=== PATIENT | female | born 1950 | race African-American/Black ===

== ENCOUNTER 2018-12-30 08:49 | Inpatient (IN) | payer MEDICARE ==
[~2018-12-30] VITALS: Ht 167.6 cm; Wt 115.7 kg
--- NOTE | 2018-12-30 08:53 | NUR ---
PT [id number], FROM HOME, C/O WEAKNESS x 5 DAYS, PT IS AAOX3, NOT IN RESPIRATORY DISTRESS, NOTED ELEVATED HEART RATE, HOOKED TO MONITOR, KEPT RESTED AND COMFORTABLE, WILL CONTINUE TO MONITOR.
[2018-12-30] MEDS ORDERED: IV NS 0.9% 500 ML BAG IV ONE (09:00)
--- NOTE | 2018-12-30 09:00 | NUR ---
SEEN AND EXAMINED BY DR. LORENZANA.
--- NOTE | 2018-12-30 09:05 | NUR ---
IV LINE ESTABLISHED, BLOOD DRAWNED AND SENT TO LAB.
[2018-12-30 09:14] LABS: BASOPHILS # (AUTO) 0.1 /CMM (0.0-0.2); BASOPHILS % (AUTO) 0.6 % (0.0-2.0); EOSINOPHILS % (AUTO) 0.1 % (0.0-6.0); HEMATOCRIT 35 % (33-45); HEMOGLOBIN 11.6 g/dL (11.5-14.8); LYMPHOCYTES # (AUTO) 1.2 /CMM (0.8-4.8); LYMPHOCYTES % (AUTO) 7.1 % (20.0-44.0); MEAN CORPUSCULAR HGB CONC 33 g/dl (31.0-36.0); MEAN CORPUSCULAR VOLUME 88 fL (82-100); MONOCYTES # (AUTO) 1.6 /CMM (0.1-1.30); MONOCYTES % (AUTO) 9.4 % (2.0-12.0); NEUTROPHILS # (AUTO) 13.8 /CMM (1.8-8.9); NEUTROPHILS % (AUTO) 82.8 % (43.0-81.0); PLATELET COUNT (AUTO) 294 /CMM (150-450); RED BLOOD CELL COUNT(AUTO) 3.97 MIL/uL (4.0-5.2); WHITE BLOOD COUNT (AUTO) 16.7 K/uL (4.3-11.0)
--- NOTE | 2018-12-30 09:20 | NUR ---
URINE COLLECTED VIA STRAIGHT CATH, URINE OUTPUT 500ML. URINE SPECIMEN SENT TO LAB.
--- NOTE | 2018-12-30 09:25 | NUR ---
informed Dr. Dial regarding patient allergic to PCN and iodine that she ordered Merem and per ok to give. Rambo (pharmacist) made aware about MD order.
[2018-12-30] MEDS ORDERED: IV NS 0.9% 1,000 ML BAG IV ONE (09:30)
[2018-12-30] MEDS ORDERED: MEROPENEM 500 MG in IV NS 0.9% 50 ML IV ONE (09:30)
[2018-12-30] MEDS ORDERED: INSULIN REGULAR, HUMAN 100 UNIT/ML 10 ML VIAL IV ONE (09:30)
--- NOTE | 2018-12-30 09:30 | NUR ---
PT IS WHEELED TO CT SCAN VIA [facility].
[2018-12-30 09:31] LABS: ALANINE AMINOTRANSFERASE 14 U/L (12-78); ALBUMIN 2.6 g/dL (3.4-5.0); ALKALINE PHOSPHATASE 92 U/L (46-116); ASPARTATE AMINOTRANSFERASE 15 U/L (15-37); BILIRUBIN,DIRECT 0.2 mg/dL (0.0-0.2); BILIRUBIN,TOTAL 0.6 mg/dL (0.2-1.0); CARBON DIOXIDE 24 mmol/L (21-32); CHLORIDE 94 mmol/L (98-107); CREATININE 1.1 mg/dL (0.6-1.3); POTASSIUM 5.2 mmol/L (3.5-5.1); SODIUM SERUM 128 mmol/L (136-145); UREA NITROGEN, BLOOD 27 mg/dL (7-18)
[2018-12-30 09:33] LABS: APPEARANCE,URINE Clear (CLEAR); BILIRUBIN,URINE Negative (NEGATIVE); BLOOD, URINE Small Ery/uL (NEGATIVE); COLOR,URINE Yellow (YELLOW); KETONES,URINE 15 (NEGATIVE); LEUKOCYTE ESTERASE ,URINE Negative (NEGATIVE); NITRITE, URINE Negative (NEGATIVE); PROTEIN,URINE 30 mg/dl (NEGATIVE); UGLUCOSE 500 MG/DL mg/dL (NEGATIVE); UROBILINOGEN,URINE 0.2 EU/dL (0.2)
[2018-12-30 09:33] LABS: GLUCOSE 494 mg/dL (74-106)
[2018-12-30 09:38] LABS: BACTERIA,URINE Moderate /HPF (None Seen); RBC,URINE 0-2 /HPF (0-2); SQUAMOUS EPITHELIAL CELL,UR Few /HPF (None Seen); WBC,URINE 0-2 /HPF (0-3)
[2018-12-30] MEDS ORDERED: ACET1TAB12 PO (09:52)
[2018-12-30] MEDS ORDERED: RANI150C4 PO (09:52)
[2018-12-30] MEDS ORDERED: METF-440 PO (09:52)
[2018-12-30] MEDS ORDERED: GLIP5TAB13 PO (09:52)
[2018-12-30] MEDS ORDERED: NITR0.4T48 SL (09:52)
--- NOTE | 2018-12-30 10:27 | NUR ---
PANEL PHYSICIAN OPHTHALMOLOGIST PAGED
--- NOTE | 2018-12-30 10:58 | NUR ---
TECH AT BEDSIDE FOR ULTRASOUND.
--- NOTE | 2018-12-30 11:40 | NUR ---
CALLED HOUSE [facility] FOR TELE BED
[2018-12-30] MEDS ORDERED: IV 1/2NS 1000 ML 1,000 ML IV PRN (11:46)
--- NOTE | 2018-12-30 11:48 | NUR ---
TELE BED 315-1
--- NOTE | 2018-12-30 11:56 | NUR ---
REPORT GIVEN TO PHOEBE MCFARLAND FOR DAMARIS.
[2018-12-30] MEDS ORDERED: Z GUARD REMEDY 2 OZ OINT TP PRN (12:00)
[2018-12-30] MEDS ORDERED: MAGNESIUM HYDROXIDE 30 ML UDC PO PRN (12:00)
[2018-12-30] MEDS ORDERED: DEXTROSE 50%-WATER 50 ML DISP.SYRIN IV PRN ×2 (12:00→22:00)
[2018-12-30] MEDS ORDERED: ZOLPIDEM TARTRATE 5 MG TABLET PO PRN (12:00)
[2018-12-30] MEDS ORDERED: FEE PK DOSING 1 MIN EA MC ONE (12:18)
[2018-12-30 12:30] VITALS: BP 128/73
--- NOTE | 2018-12-30 12:30 | NUR ---
FINANCIAL PLANNERSTORE MGR NOTE PT ARRIVED TO TELE UNIT IN STABLE CONDITION ACCOMPANIED BY 2 ER STAFF VIA GURAIDA. PT IS A/O X3, AFEBRILE. RESPIRATIONS ARE EVEN AND UNLABORED, NOT IN ANY ACUTE DISTRESS NOTED. PUPILS ARE REACTIVE TO LIGHT, BILATERAL HAND DRY END OPERATOR ARE STRONG AND EQUAL. ABDOMEN IS SOFT AND NONDISTENDED, BOWEL SOUNDS ARE PRESENT IN ALL 4 QUADRANTS UPON AUSCULTATION. DENIES ANY BLADDER DISCOMFORT. DENIES ANY SOB, N/V AT THIS TIME. C/O PAIN TO LEFT LEG. WOUND NOTED TO LEFT LATERAL FOOT, REDNESS AND SWELLING TO LEFT LEG, REDNESS TO RIGHT LEG. PICTURES TAKEN AND PLACED IN CHART. DR. REILLY AT BEDSIDE. PT IS POSITIVE FOR DVT TO LEFT LEG. ORDERS NOTED AND CARRIED OUT BY DR. REILLY. TELE LEADS PLACED AND IS SINUS TACH AT 114. PT MADE COMFORTABLE IN BED. INSTRUCTED PT TO USE CALL LIGHT WHEN ASSISTANCE IS NEEDED, CALL LIGHT IS LEFT WITHIN REACH. WILL MONITOR THROUGHOUT SHIFT FOR CONTINUITY OF CARE.
[2018-12-30] MEDS: BLOOD SUGAR DIAGNOSTIC 1 EACH STRIP IN SCH ×4 (12:33→22:13)
[2018-12-30] MEDS: INSULIN REGULAR, HUMAN 100 UNIT/ML 3 ML VIAL SQ PRN ×2 (12:35→16:58)
[2018-12-30] MEDS: IV 1/2NS 1000 ML 1,000 ML IV PRN ×2 (12:42→22:23)
[2018-12-30] MEDS: VANCOMYCIN 0.75 GM in IV D5W 250 ML IV SCH (13:11)
[2018-12-30 16:00] VITALS: BP 135/78
[2018-12-30] MEDS: HYDROCODONE/APAP 5/325MG 1 EACH TABLET PO PRN ×2 (16:53→21:46)
[2018-12-30] MEDS: RIVAROXABAN 15 MG TABLET PO SCH (16:59)
--- NOTE | 2018-12-30 17:08 | NUR ---
MS RN NOTES-- BLOOD SUGAR 332. 16 UNITS GIVEN PER SLIDING SCALE. PT C/O FEELING THIRSTY. BEDSIDE TABLE WITHIN REACH FOR WATER. WILL MONITOR CLOSELY.
--- NOTE | 2018-12-30 18:31 | NUR ---
MEDICAL OFFICE COORDINATOR CLOSING NOTES ALL DUE MEDS GIVEN. NEEDS MET AND RENDERED. PT IS A/O X3, AFEBRILE. RESPIRATIONS ARE EVEN AND UNLABORED, NOT IN ANY ACUTE DISTRESS NOTED. PT DENIES ANY PAIN AT THIS TIME, NO C/O SOB, N/V. IV SITE TO RAC INTACT, NO INFILTRATION NOTED. DRESSING KEPT CLEAN AND DRY. IV FLUIDS RUNNING AT 125ML/HR, TOLERATING WELL. SON AT BEDSIDE. SAFETY MEASURES ARE IN PLACE. REMINDED PT TO USE CALL LIGHT WHEN ASSISTANCE IS NEEDED, CALL LIGHT IS LEFT WITHIN REACH. WILL ENDORSE TO NEXT SHIFT FOR CONTINUITY OF CARE.
--- NOTE | 2018-12-30 19:30 | NUR ---
RN NOTES RECEIVED PT. AWAKE ON BED, FOUND FOUND SOMEBODY LYING ON THE THE OTHER BED, ASKED HIM WHAT'S THE RELATIONSHIP WITH THE PATIENT BECAUSE CURTAIN WAS CLOSED, THE PATIENT TOLD ME THAT HE WAS HIS SON ANDREA REYES WAS HIS NAME.. SUDDENLY PT'S SON SCREAMED AT ME AND TOLD ME THAT I'M ASKING STUPID QUESTIONS.. I EXPLAINED TO HIM THAT IT WAS MY FIRST TIME TO TAKE CARE OF HIS MOM AND THE CURTAIN WAS CLOSED THAT'S WHY I WANT TO MAKE SURE HE'S RELATED TO THE PATIENT AND BESIDES HE'S NOT ALLOWED TO LYE DOWN TO THE OTHER BED BECAUSE WE MIGHT PUT ANOTHER PATIENT THERE BECAUSE ER WAS BUSY. HE WAS SCREAMING AT ME , THE PATIENT WAS TRYING TO CALM DOWN HIS SON AND WAS APOLOGIZING TO ME. 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
[2018-12-30] MEDS: MEROPENEM 500 MG in IV NS 0.9% 50 ML IV SCH (20:26)
[2018-12-30 20:35] VITALS: BP 102/66
--- NOTE | 2018-12-30 21:48 | NUR ---
RN NOTES COMPLAINED OF BILATERAL LOWER EXTREMITIES- NOROC 5/325MG PO GIVEN ORDERED, V/S STABLE
[2018-12-30] MEDS: *INSULIN REGULAR(HUMULIN R)HUM 100 UNIT/ML VIAL SQ PRN (22:15)
[2018-12-31] VITALS: BP 104/60
[2018-12-31 00:19] VITALS: BP 104/60
[2018-12-31] MEDS: VANCOMYCIN 0.75 GM in IV D5W 250 ML IV SCH (01:04)
[2018-12-31] MEDS: HYDROCODONE/APAP 5/325MG 1 EACH TABLET PO PRN ×4 (01:43→21:20)
--- NOTE | 2018-12-31 01:43 | NUR ---
RN NOTES COMPLAINED OF BILATERAL LOWER EXTREMITIES PAIN- NORCO 5/325 MG PO GIVEN ORDERED, V/S STABLE
[2018-12-31] MEDS: INSULIN REGULAR, HUMAN 100 UNIT/ML 3 ML VIAL SQ PRN ×3 (06:16→16:39)
--- NOTE | 2018-12-31 06:35 | NUR ---
RN NOTES AWAKE, DENIES PAIN AT THIS TIME, MORNING CARE RENDERED, CLL LIGHT WITHIN REACH, [id number], PT. NEEDS ATTENDED
[2018-12-31] MEDS: BLOOD SUGAR DIAGNOSTIC 1 EACH STRIP IN SCH ×4 (07:01→21:20)
[2018-12-31 07:39] LABS: BASOPHILS % (AUTO) 0.3 % (0.0-2.0); EOSINOPHILS % (AUTO) 0.6 % (0.0-6.0); HEMATOCRIT 33 % (33-45); HEMOGLOBIN 11.1 g/dL (11.5-14.8); LYMPHOCYTES # (AUTO) 1.3 /CMM (0.8-4.8); LYMPHOCYTES % (AUTO) 10.5 % (20.0-44.0); MEAN CORPUSCULAR HGB CONC 33 g/dl (31.0-36.0); MEAN CORPUSCULAR VOLUME 86 fL (82-100); MONOCYTES # (AUTO) 1.1 /CMM (0.1-1.30); MONOCYTES % (AUTO) 8.6 % (2.0-12.0); NEUTROPHILS # (AUTO) 10.2 /CMM (1.8-8.9); PLATELET COUNT (AUTO) 294 /CMM (150-450); RED BLOOD CELL COUNT(AUTO) 3.88 MIL/uL (4.0-5.2); WHITE BLOOD COUNT (AUTO) 12.7 K/uL (4.3-11.0)
--- NOTE | 2018-12-31 07:43 | NUR ---
BULK STATION OPERATOR OPENING NOTES RECEIVED PT LAYING IN BED RESTING COMFORTABLY. PT IS EASILY AROUSABLE. PT IS A/O X3, AFEBRILE. RESPIRATIONS ARE EVEN AND UNLABORED, NOT IN ANY ACUTE DISTRESS NOTED. PT DENIES ANY PAIN AT THIS TIME, NO C/O SOB, N/V. IV SITE TO RAC INTACT, NO INFILTRATION NOTED. DRESSING KEPT CLEAN AND DRY.BILATERAL HEELS ARE OFFLOADED. WILL REPOSITION PER PROTOCOL. INSTRUCTED PT TO USE CALL LIGHT WHEN ASSISTANCE IS NEEDED, CALL LIGHT IS LEFT WITHIN REACH. WILL MONITOR THROUGHOUT SHIFT FOR CONTINUITY OF CARE.
--- NOTE | 2018-12-31 07:50 | NUR ---
MS RN NOTES-- PT SEEN AND EXAMINED BY DR. REILLY.
[2018-12-31 07:53] LABS: ALBUMIN 2.1 g/dL (3.4-5.0); BILIRUBIN,TOTAL 0.4 mg/dL (0.2-1.0); CALCIUM, SERUM 8.2 mg/dL (8.5-10.1); CREATININE 0.8 mg/dL (0.6-1.3); MAGNESIUM 1.9 mg/dL (1.8-2.4); PHOSPHORUS 2.4 mg/dL (2.5-4.9); POTASSIUM 4.9 mmol/L (3.5-5.1); TOTAL PROTEIN, SERUM 7.1 g/dL (6.4-8.2)
[2018-12-31 08:00] VITALS: BP 131/73
[2018-12-31] MEDS: glipiZIDE 10 MG TABLET PO SCH ×2 (08:46→16:18)
[2018-12-31] MEDS: METFORMIN 500 MG TABLET PO SCH ×2 (08:46→16:18)
[2018-12-31] MEDS: MEROPENEM 500 MG in IV NS 0.9% 50 ML IV SCH ×2 (08:46→21:19)
[2018-12-31] MEDS: RIVAROXABAN 15 MG TABLET PO SCH ×2 (08:49→16:19)
--- NOTE | 2018-12-31 10:37 | NUR ---
MS RN NOTES-- PT P/U BY RADIOLOGY FOR CT SCAN OF CHEST IN STABLE CONDITION.
--- NOTE | 2018-12-31 11:31 | NUR ---
WOUND CARE CONSULT: PT PRESENTS WITH LEFT LATERAL FOOT WOUND, PRESENT ON ADMISSION. PT ALSO NOTED TO HAVE SWELLING TO RT POSTERIOR UPPER BACK, PRESENT ON ADMISSION. PER CONSULTING SERVICES ASSOCIATE, PODIATRY CONSULT WAS CALLED BY DR REILLY. DEFER TO DPM FOR WOUND TREATMENT PLAN. DISCUSSED SKIN PROTECTION WITH NURSING STAFF. WILL SEE PRN. BAKER IN AGREEMENT WITH PLAN OF CARE.
[2018-12-31] MEDS: VANCOMYCIN 1 GM in IV D5W 250 ML IV SCH (14:15)
[2018-12-31 16:00] VITALS: BP 111/72
[2018-12-31] MEDS ORDERED: K PHOS NEUTRAL 250 MG TABLET PO ONE (16:00)
[2018-12-31] MEDS: IV 1/2NS 1000 ML 1,000 ML IV PRN (16:35)
--- NOTE | 2018-12-31 16:47 | NUR ---
MS RN NOTES-- PT SEEN AND EXAMINED BY DR. JAMES.
--- NOTE | 2018-12-31 18:24 | NUR ---
MS RN CLOSING NOTES ALL DUE MEDS GIVEN. NEEDS MET AND RENDERED. PT IS A/O X3, AFEBRILE. RESPIRATIONS ARE EVEN AND UNLABORED, NOT IN ANY ACUTE DISTRESS NOTED. PT DENIES ANY PAIN AT THIS TIME, NO C/O SOB, N/V. IV SITE TO RAC INTACT, NO INFILTRATION NOTED. DRESSING KEPT CLEAN AND DRY. IV FLUIDS RUNNING AT 125ML/HR, TOLERATING WELL. BILATERAL HEELS OFFLOADED, REPOSITIONED PER PROTOCOL. SAFETY MEASURES ARE IN PLACE. REMINDED PT TO USE CALL LIGHT WHEN ASSISTANCE IS NEEDED, CALL LIGHT IS LEFT WITHIN REACH. WILL ENDORSE TO NEXT SHIFT FOR CONTINUITY OF CARE.
--- NOTE | 2018-12-31 19:30 | NUR ---
MS RN NOTE: PATIENT RESTING IN BED, NO ACUTE DISTRESS NOTED. BREATHING EVEN AND UNLABORED, NO SOB NOTED. IV TO RAC IN PLACE, INFUSING NS AT 125MG/HR. NO S/S OF HYPER/HYPOGLYCEMIA NOTED. BED LOCKED AND IN LOWEST POSITION, CALL LIGHT IN REACH. WILL CONTINUE TO MONITOR.
[2018-12-31 20:00] VITALS: BP 110/61
--- NOTE | 2018-12-31 21:25 | NUR ---
MS RN NOTE: PATIENT COMPLAINS OF PAIN TO LLE 7, NORCO 5/325MG 1TAB ORAL GIVEN PER MD ORDER. WILL CONTINUE TO MONITOR.
[2018-12-31] MEDS: *INSULIN REGULAR(HUMULIN R)HUM 100 UNIT/ML VIAL SQ PRN (21:28)
--- NOTE | 2018-12-31 21:30 | NUR ---
MS RN NOTE: PATIENT BLOOD SUGAR LEVEL 255MG/DL, PATIENT TO RECEIVE 6 UNITS PER SLIDING SCALE. NO S/S OF HYPERGLYCEMIA NOTED. WILL CONTINUE TO MONITOR.
[2018-12-31] MEDS: ONDANSETRON HCL/PF 4 MG/2 ML VIAL IVP PRN (23:40)
[2019-01-01 02:00] VITALS: BP 107/74
[2019-01-01] MEDS: IV 1/2NS 1000 ML 1,000 ML IV PRN ×2 (02:09→16:33)
[2019-01-01] MEDS: VANCOMYCIN 1 GM in IV D5W 250 ML IV SCH ×2 (02:09→14:26)
[2019-01-01] MEDS: HYDROCODONE/APAP 5/325MG 1 EACH TABLET PO PRN ×3 (05:04→23:30)
[2019-01-01] MEDS: MAG HYDROX/AL HYDROX/SIMETH 30 ML UDC PO PRN (05:06)
--- NOTE | 2019-01-01 05:15 | NUR ---
MS RN NOTE: PATIENT COMPLAINS OF PAIN TO LLE 7/10, NORCO 5/325MG 1TAB ORAL GIVEN PER MD ORDER. PATIENT ALSO COMPLAINS OF UPSET STOMACH, MAALOX GIVEN PER MD ORDER. WILL CONTINUE TO MONITOR.
--- NOTE | 2019-01-01 06:45 | NUR ---
MS RN NOTE: PATIENT RESTING IN BED, NO ACUTE DISTRESS NOTED. BREATHING EVEN AND UNLABORED, NO SOB NOTED. IV TO RAC IN PLACE, INFUSING NS AT 125MG/HR. PATIENT BLOOD SUGAR LEVEL 291MG/DL, TO RECEIVE 12 UNITS OF INSULIN PER SLIDING SCALE. NO S/S OF HYPER/HYPOGLYCEMIA NOTED. BED LOCKED AND IN LOWEST POSITION, CALL LIGHT IN REACH. WILL ENDORSE TO DAY NURSE TO CONTINUE WITH PLAN OF CARE.
[2019-01-01 07:04] LABS: CALCIUM, SERUM 8.4 mg/dL (8.5-10.1); CREATININE 0.8 mg/dL (0.6-1.3); PHOSPHORUS 2.9 mg/dL (2.5-4.9); POTASSIUM 5.1 mmol/L (3.5-5.1)
[2019-01-01] MEDS: INSULIN REGULAR, HUMAN 100 UNIT/ML 3 ML VIAL SQ PRN ×4 (07:24→22:40)
[2019-01-01] MEDS: BLOOD SUGAR DIAGNOSTIC 1 EACH STRIP IN SCH ×4 (07:24→22:41)
--- NOTE | 2019-01-01 07:30 | NUR ---
m/s retirement plan counselor: initial assessment received pt in bed awake, a/ox3. noted iv to rac leaking, removed with tip intact. inserted new iv to left wrist #22. iv fluids reconnected. dressing to left foot in place. for d'c planning to snf, awaiting for bed. pt aware. instructed to call for assistance. will continue to monitor.
[2019-01-01 08:00] VITALS: BP 118/79
[2019-01-01] MEDS: METFORMIN 500 MG TABLET PO SCH ×2 (08:47→16:33)
[2019-01-01] MEDS: glipiZIDE 10 MG TABLET PO SCH ×2 (08:47→16:33)
[2019-01-01] MEDS: LACTOBACILLUS RHAMNOSUS GG 1 EACH CAP.SPRINK PO SCH ×2 (08:47→16:33)
[2019-01-01] MEDS: RIVAROXABAN 15 MG TABLET PO SCH ×2 (08:49→16:35)
[2019-01-01] MEDS ORDERED: MORPHINE SULFATE INJ 2 MG/ML DISP.SYRIN IV PRN (09:00)
[2019-01-01] MEDS: MEROPENEM 500 MG in IV NS 0.9% 50 ML IV SCH ×2 (09:15→21:14)
[2019-01-01] MEDS: DAKINS HALF STRENGTH (0.25%) 480 ML BOTTLE TOP SCH (10:22)
--- NOTE | 2019-01-01 11:19 | NUR ---
WOUND CARE: ULCER NOTED TO LEFT POSTERIOR LOWER LEG. PT STATES HAS BEEN THERE FOR A COUPLE OF WEEKS. RECOMMEND DPM CONSULT/FOLLOWUP. WILL SEE PRN.
--- NOTE | 2019-01-01 12:00 | NUR ---
m/s fourth mate: notes lunch served. hob elevated. instructed to call for assistance. will continue to monitor.
--- NOTE | 2019-01-01 15:06 | NUR ---
m/s motion picture commentator: notes c/o 06/20 lle pain, medicated with norco 5/325mg po as ordered. instructed to call for assistance. will continue to monitor.
[2019-01-01 16:00] VITALS: BP 129/80
--- NOTE | 2019-01-01 16:06 | NUR ---
m/s television repairer: notes resting comfortable in bed. voiced no discomfort. instructed to call for assistance. will continue to monitor.
--- NOTE | 2019-01-01 18:14 | NUR ---
m/s drilling field professional: notes in bed sounds asleep. hob elevated. needs attended. no acute distress noted. will continue to monitor.
--- NOTE | 2019-01-01 19:10 | NUR ---
MS RN NOTE RECEIVED PT IN BED AWAKE AND ABLE TO MAKE NEEDS KNOWN. PT A/O X3. BREATHING EVEN AND UNLABORED WITH NO S/S OF ACUTE DISTRESS OR SOB NOTED. PT WITH IV AT LEFT WRIST #22G PATENT AND INTACT RUNNING 1/2 NS AT 125MG/HR. SAFETY MEASURES IN PLACE WITH BED IN LOWEST LOCKED POSITION WITH SIDE RAILS UP X2. CALL LIGHT WITHIN REACH. WILL CONTINUE TO MONITOR.
--- NOTE | 2019-01-01 19:15 | NUR ---
m/s general assembler: notes bedside report given to daryl (rn) for continuity of care.
[2019-01-01] MEDS: INSULIN GLARGINE, 100 UNIT/ML CARTRIDGE SQ SCH (22:38)
--- NOTE | 2019-01-01 23:30 | NUR ---
MS RN NOTES NORCO GIVEN TO PATIENT FOR GENERALIZED PAIN 03/20.
[2019-01-02] MEDS: ONDANSETRON HCL/PF 4 MG/2 ML VIAL IVP PRN ×2 (00:07→06:24)
--- NOTE | 2019-01-02 00:07 | NUR ---
MS RN NOTES ZOFRAN GIVEN TO PATIENT FOR N/V.
[2019-01-02] MEDS: IV 1/2NS 1000 ML 1,000 ML IV PRN (01:38)
[2019-01-02] MEDS: VANCOMYCIN 1 GM in IV D5W 250 ML IV SCH ×2 (01:43→15:43)
[2019-01-02 06:35] LABS: BASOPHILS % (AUTO) 0.2 % (0.0-2.0); EOSINOPHILS % (AUTO) 1.1 % (0.0-6.0); HEMATOCRIT 34 % (33-45); HEMOGLOBIN 11.8 g/dL (11.5-14.8); LYMPHOCYTES # (AUTO) 1.2 /CMM (0.8-4.8); LYMPHOCYTES % (AUTO) 8.4 % (20.0-44.0); MEAN CORPUSCULAR HGB CONC 35 g/dl (31.0-36.0); MEAN CORPUSCULAR VOLUME 85 fL (82-100); MONOCYTES # (AUTO) 1.3 /CMM (0.1-1.30); MONOCYTES % (AUTO) 8.7 % (2.0-12.0); NEUTROPHILS # (AUTO) 11.9 /CMM (1.8-8.9); NEUTROPHILS % (AUTO) 81.6 % (43.0-81.0); PLATELET COUNT (AUTO) 340 /CMM (150-450); WHITE BLOOD COUNT (AUTO) 14.6 K/uL (4.3-11.0)
[2019-01-02] MEDS: BLOOD SUGAR DIAGNOSTIC 1 EACH STRIP IN SCH ×4 (06:45→22:24)
[2019-01-02 06:59] LABS: CALCIUM, SERUM 8.1 mg/dL (8.5-10.1); CREATININE 0.8 mg/dL (0.6-1.3); MAGNESIUM 2.4 mg/dL (1.8-2.4); POTASSIUM 5.1 mmol/L (3.5-5.1)
[2019-01-02] MEDS: glipiZIDE 10 MG TABLET PO SCH ×2 (07:30→17:40)
--- NOTE | 2019-01-02 07:32 | NUR ---
MS RN NOTE PT IN BED AWAKE AND ABLE TO MAKE NEEDS KNOWN. PT A/O X3. BREATHING EVEN AND UNLABORED WITH NO S/S OF ACUTE DISTRESS OR SOB NOTED THROUGHOUT SHIFT. PT WITH IV AT LEFT WRIST #22G PATENT AND INTACT RUNNING 1/2 NS AT 125MG/HR. SAFETY MEASURES IN PLACE WITH BED IN LOWEST LOCKED POSITION WITH SIDE RAILS UP X2. PT KEPT CLEAN, DRY, AND COMFORTABLE. CALL LIGHT WITHIN REACH. WILL ENDORSE TO ONCOMING NURSE FOR DAMARIS.
[2019-01-02] MEDS: INSULIN REGULAR, HUMAN 100 UNIT/ML 3 ML VIAL SQ PRN ×3 (07:51→17:41)
[2019-01-02 08:00] VITALS: BP 121/57
--- NOTE | 2019-01-02 08:22 | NUR ---
MS RN NOTES-- PT SEEN AND EXAMINED BY DEVIN WARREN W/ ORDERS FOR STAT CT ABD/PELVIS FOR RIGHT ABDOMINAL PAIN.
--- NOTE | 2019-01-02 08:37 | NUR ---
MS RN OPENING NOTES RECEIVED PT LAYING IN BED RESTING COMFORTABLY. PT IS EASILY AROUSABLE. PT IS A/O X3, AFEBRILE. RESPIRATIONS ARE EVEN AND UNLABORED, NOT IN ANY ACUTE DISTRESS NOTED. PT DENIES ANY PAIN AT THIS TIME, NO C/O SOB, N/V. IV SITE TO R WRIST INTACT, NO INFILTRATION NOTED. DRESSING KEPT CLEAN AND DRY.BILATERAL HEELS ARE OFFLOADED. WILL REPOSITION PER PROTOCOL. INSTRUCTED PT TO USE CALL LIGHT WHEN ASSISTANCE IS NEEDED, CALL LIGHT IS LEFT WITHIN REACH. WILL MONITOR THROUGHOUT SHIFT FOR CONTINUITY OF CARE.
--- NOTE | 2019-01-02 08:50 | NUR ---
MS RN NOTES-- PT SEEN AND EXAMINED BY DR. JAMES.
--- NOTE | 2019-01-02 09:10 | NUR ---
MS RN NOTES-- PT P/U BY RADIOLOGY VIA GURNEY IN STABLE CONDITION.
--- NOTE | 2019-01-02 09:28 | NUR ---
MS RN NOTES-- PT CAME BACK FROM RADIOLOGY IN STABLE CONDITION. NO NEW SKIN ISSUES NOTED.
[2019-01-02] MEDS: MEROPENEM 500 MG in IV NS 0.9% 50 ML IV SCH (09:36)
--- NOTE | 2019-01-02 10:30 | NUR ---
MS RN NOTES-- US TECH AT BEDSIDE. PT STATED TO COME BACK IN 40 INS. US TECH AWARE.
--- NOTE | 2019-01-02 11:09 | NUR ---
MS RN NOTES-- ATTEMPED TO GIVE PATIENT'S MEDICATIONS. PT STATED COME BACK IN 20 MINS.
--- NOTE | 2019-01-02 11:31 | NUR ---
MS RN NOTES-- PER MENDEZ'S NOTES, TO INSERT IN AND OUT CATH IF PT UNABLE TO VOID. PT ABLE TO VOID AT THIS TIME AND NOTED WITH SOILED DIAPER. NOTIFIED US TECH THAT PT WAS JUST CHANGED.
[2019-01-02] MEDS: LEVOFLOXACIN (500MG) 500 MG TABLET PO SCH (12:09)
[2019-01-02] MEDS: RIVAROXABAN 15 MG TABLET PO SCH ×2 (12:10→17:41)
[2019-01-02] MEDS: HYDROCODONE/APAP 5/325MG 1 EACH TABLET PO PRN (12:11)
[2019-01-02] MEDS: METFORMIN 500 MG TABLET PO SCH ×2 (12:11→17:40)
[2019-01-02] MEDS: LACTOBACILLUS RHAMNOSUS GG 1 EACH CAP.SPRINK PO SCH ×2 (12:11→17:40)
[2019-01-02] MEDS: DAKINS HALF STRENGTH (0.25%) 480 ML BOTTLE TOP SCH (12:22)
[2019-01-02 16:00] VITALS: BP 146/83
--- NOTE | 2019-01-02 18:57 | NUR ---
MS RN CLOSING NOTES ALL DUE MEDS GIVEN. NEEDS MET AND RENDERED. PT IS A/O X3, AFEBRILE. RESPIRATIONS ARE EVEN AND UNLABORED, NOT IN ANY ACUTE DISTRESS NOTED. PT DENIES ANY PAIN AT THIS TIME, NO C/O SOB, N/V. IV SITE TO LEFT WRIST INTACT, NO INFILTRATION NOTED. DRESSING KEPT CLEAN AND DRY. BILATERAL HEELS OFFLOADED, REPOSITIONED PER PROTOCOL. SAFETY MEASURES ARE IN PLACE. REMINDED PT TO USE CALL LIGHT WHEN ASSISTANCE IS NEEDED, CALL LIGHT IS LEFT WITHIN REACH. WILL ENDORSE TO NEXT SHIFT FOR CONTINUITY OF CARE.
--- NOTE | 2019-01-02 19:00 | NUR ---
MS RN NOTE RECEIVED PT IN BED SLEEPING BUT EASILY AWOKEN VERBALLY OR BY TOUCH. PT A/O X3 AND ABLE TO MAKE NEEDS KNOWN. BREATHING EVEN AND UNLABORED WITH NO S/S OF ACUTE DISTRESS OR SOB NOTED. PT WITH IV AT LEFT WRIST #22G PATENT AND INTACT AND SL. SAFETY MEASURES IN PLACE WITH BED IN LOWEST LOCKED POSITION WITH SIDE RAILS UP X2. DRESSING ON LEFT LEG/FOOT DRY AND INTACT.CALL LIGHT WITHIN REACH. WILL CONTINUE TO MONITOR.
[2019-01-02 20:22] VITALS: BP 131/78
[2019-01-02] MEDS: INSULIN GLARGINE, 100 UNIT/ML CARTRIDGE SQ SCH (22:29)
--- NOTE | 2019-01-02 22:30 | NUR ---
MS RN NOTES PT REFUSED SLIDING SCALE INSULIN. PT ONLY RECEIVED LANTUS COVERAGE.
[2019-01-03] MEDS: VANCOMYCIN 1 GM in IV D5W 250 ML IV SCH ×2 (01:53→14:01)
[2019-01-03] MEDS: BLOOD SUGAR DIAGNOSTIC 1 EACH STRIP IN SCH ×4 (07:18→21:34)
[2019-01-03 07:38] LABS: CALCIUM, SERUM 8.4 mg/dL (8.5-10.1); POTASSIUM 5.2 mmol/L (3.5-5.1)
[2019-01-03 07:41] LABS: BASOPHILS % (AUTO) 0.3 % (0.0-2.0); EOSINOPHILS % (AUTO) 1.6 % (0.0-6.0); HEMATOCRIT 35 % (33-45); HEMOGLOBIN 11.8 g/dL (11.5-14.8); LYMPHOCYTES # (AUTO) 1.1 /CMM (0.8-4.8); LYMPHOCYTES % (AUTO) 7.7 % (20.0-44.0); MEAN CORPUSCULAR HGB CONC 33 g/dl (31.0-36.0); MEAN CORPUSCULAR VOLUME 86 fL (82-100); MONOCYTES # (AUTO) 1.1 /CMM (0.1-1.30); MONOCYTES % (AUTO) 7.5 % (2.0-12.0); NEUTROPHILS # (AUTO) 12.2 /CMM (1.8-8.9); NEUTROPHILS % (AUTO) 82.9 % (43.0-81.0); PLATELET COUNT (AUTO) 359 /CMM (150-450); RED BLOOD CELL COUNT(AUTO) 4.09 MIL/uL (4.0-5.2); WHITE BLOOD COUNT (AUTO) 14.7 K/uL (4.3-11.0)
--- NOTE | 2019-01-03 07:42 | NUR ---
MS RN NOTE PT IN BED AWAKE AND ABLE TO MAKE NEEDS KNOWN. PT A/O X3. BREATHING EVEN AND UNLABORED WITH NO S/S OF ACUTE DISTRESS OR SOB NOTED THROUGHOUT SHIFT. PT WITH IV AT LEFT WRIST #22G PATENT AND INTACT AND SL. SAFETY MEASURES IN PLACE WITH BED IN LOWEST LOCKED POSITION WITH SIDE RAILS UP X2. DRESSING ON LEFT LEG/FOOT DRY AND INTACT. CALL LIGHT WITHIN REACH. WILL ENDORSE TO ONCOMING NURSE FOR DAMARIS.
[2019-01-03 08:00] VITALS: BP 128/82
--- NOTE | 2019-01-03 08:00 | NUR ---
MS RN NOTE PT IN BED AWAKE AND ABLE TO MAKE NEEDS KNOWN. PT A/O X3. BREATHING EVEN AND UNLABORED WITH NO S/S OF ACUTE DISTRESS OR SOB NOTED. PT WITH IV AT LEFT WRIST #22G PATENT AND INTACT AND SL. SAFETY MEASURES IN PLACE WITH BED IN LOWEST LOCKED POSITION WITH SIDE RAILS UP X2. DRESSING ON LEFT LEG/FOOT DRY AND INTACT. CALL LIGHT WITHIN REACH.
[2019-01-03] MEDS: LACTOBACILLUS RHAMNOSUS GG 1 EACH CAP.SPRINK PO SCH ×2 (09:53→18:03)
[2019-01-03] MEDS: METFORMIN 500 MG TABLET PO SCH ×2 (09:53→18:02)
[2019-01-03] MEDS: glipiZIDE 10 MG TABLET PO SCH ×2 (09:53→18:08)
[2019-01-03] MEDS: RIVAROXABAN 15 MG TABLET PO SCH ×2 (09:56→17:00)
[2019-01-03] MEDS: DAKINS HALF STRENGTH (0.25%) 480 ML BOTTLE TOP SCH (10:16)
[2019-01-03] MEDS: LEVOFLOXACIN (500MG) 500 MG TABLET PO SCH (12:42)
[2019-01-03] MEDS: INSULIN REGULAR, HUMAN 100 UNIT/ML 3 ML VIAL SQ PRN ×2 (12:44→17:30)
[2019-01-03] MEDS ORDERED: FUROSEMIDE 20 MG/2 ML VIAL IV ONE (13:30)
[2019-01-03 13:56] VITALS: BP 139/89
[2019-01-03 16:00] VITALS: BP 132/83
--- NOTE | 2019-01-03 17:21 | NUR ---
DR THAO DID THE LLE EXCISIONAL WOUND DEBRIDEMENT TODAY WITH CONSENT SIGNED AND OBTAINED LT FOOT WOUND C/S G/S AND SENT TO LAB. PT TOLERATED WELL.
--- NOTE | 2019-01-03 18:30 | NUR ---
PT RESTING IN BED DENIES ANY PAIN OR DISTRESS.CALL LIGHT PLACED WITHIN REACH.
--- NOTE | 2019-01-03 19:10 | NUR ---
MS RN NOTE RECEIVED PT IN AWAKE AND ABLE TO MAKE NEEDS KNOWN. BREATHING EVEN AND UNLABORED WITH NO S/S OF ACUTE DISTRESS OR SOB NOTED. PT WITH IV AT LEFT WRIST #22G PATENT AND INTACT AND SL. PT S/P WOUND DEBRIDEMENT. SAFETY MEASURES IN PLACE WITH BED IN LOWEST LOCKED POSITION WITH SIDE RAILS UP X2. DRESSING ON LEFT LEG/FOOT DRY AND INTACT.CALL LIGHT WITHIN REACH. WILL CONTINUE TO MONITOR.
[2019-01-03 20:00] VITALS: BP 144/78
[2019-01-03] MEDS: INSULIN GLARGINE, 100 UNIT/ML CARTRIDGE SQ SCH (21:35)
--- NOTE | 2019-01-03 23:30 | NUR ---
MS RN NOTES PT AGREED TO A BOWSER, BOWSER INSERTED AND DRAINING WELL. LLE WOUND TREATMENT DONE AND COVERED.
[2019-01-04] MEDS: VANCOMYCIN 1 GM in IV D5W 250 ML IV SCH ×2 (01:20→14:23)
--- NOTE | 2019-01-04 06:42 | NUR ---
MS RN NOTE PT IN BED SLEEPING BUT EASILY AWOKEN VERBALLY OR BY TOUCH. PT A/O X3 AND ABLE TO MAKE NEEDS KNOWN. BREATHING EVEN AND UNLABORED WITH NO S/S OF ACUTE DISTRESS OR SOB NOTED THROUGHOUT SHIFT. PT WITH IV AT LEFT WRIST #22G PATENT AND INTACT AND SL. PT S/P WOUND DEBRIDEMENT AND DENIES PAIN AT THIS TIME. PT WITH FC AND DRAINING WELL 3400CC THROUGHOUT SHIFT. SAFETY MEASURES IN PLACE WITH BED IN LOWEST LOCKED POSITION WITH SIDE RAILS UP X2. DRESSING ON LEFT LEG/FOOT DRY AND INTACT. CALL LIGHT WITHIN REACH. WILL ENDORSE TO ON COMING NURSE FOR DAMARIS.
[2019-01-04 07:31] LABS: BASOPHILS # (AUTO) 0.1 /CMM (0.0-0.2); BASOPHILS % (AUTO) 0.5 % (0.0-2.0); EOSINOPHILS % (AUTO) 1.5 % (0.0-6.0); HEMATOCRIT 35 % (33-45); HEMOGLOBIN 11.7 g/dL (11.5-14.8); LYMPHOCYTES # (AUTO) 1.3 /CMM (0.8-4.8); LYMPHOCYTES % (AUTO) 9.8 % (20.0-44.0); MEAN CORPUSCULAR HGB CONC 34 g/dl (31.0-36.0); MEAN CORPUSCULAR VOLUME 85 fL (82-100); MONOCYTES # (AUTO) 1.1 /CMM (0.1-1.30); MONOCYTES % (AUTO) 8.2 % (2.0-12.0); PLATELET COUNT (AUTO) 365 /CMM (150-450); RED BLOOD CELL COUNT(AUTO) 4.08 MIL/uL (4.0-5.2); WHITE BLOOD COUNT (AUTO) 13.7 K/uL (4.3-11.0)
[2019-01-04 07:53] LABS: CALCIUM, SERUM 8.5 mg/dL (8.5-10.1); CREATININE 0.9 mg/dL (0.6-1.3)
[2019-01-04 08:00] VITALS: BP 122/70
[2019-01-04] MEDS: BLOOD SUGAR DIAGNOSTIC 1 EACH STRIP IN SCH ×4 (08:13→21:44)
[2019-01-04] MEDS: METFORMIN 500 MG TABLET PO SCH ×2 (08:33→16:50)
[2019-01-04] MEDS: LACTOBACILLUS RHAMNOSUS GG 1 EACH CAP.SPRINK PO SCH ×2 (08:33→16:50)
[2019-01-04] MEDS: glipiZIDE 10 MG TABLET PO SCH ×2 (08:33→16:50)
[2019-01-04] MEDS: RIVAROXABAN 15 MG TABLET PO SCH ×2 (08:34→16:59)
[2019-01-04] MEDS: DAKINS HALF STRENGTH (0.25%) 480 ML BOTTLE TOP SCH (08:35)
[2019-01-04 11:56] LABS: APPEARANCE,URINE CLOUDY (CLEAR); BILIRUBIN,URINE NEGATIVE (NEGATIVE); BLOOD, URINE 3+ Ery/uL (NEGATIVE); COLOR,URINE YELLOW (YELLOW); KETONES,URINE NEGATIVE (NEGATIVE); LEUKOCYTE ESTERASE ,URINE 2+ (NEGATIVE); NITRITE, URINE NEGATIVE (NEGATIVE); PROTEIN,URINE 3+ mg/dl (NEGATIVE); UGLUCOSE NEGATIVE (NEGATIVE); UROBILINOGEN,URINE 0.2 EU/dL (0.2)
[2019-01-04 12:08] LABS: BACTERIA,URINE 2+ /HPF (None Seen); RBC,URINE 51-80 /HPF (0-2); WBC,URINE 21-50 /HPF (0-3); YEAST,URINE Many /HPF (None Seen)
[2019-01-04] MEDS: LEVOFLOXACIN (500MG) 500 MG TABLET PO SCH (12:59)
[2019-01-04] MEDS: INSULIN REGULAR, HUMAN 100 UNIT/ML 3 ML VIAL SQ PRN ×3 (13:10→17:15)
--- NOTE | 2019-01-04 13:10 | NUR ---
NO 8 UNITS HUMULIN INSULIN WAS ADMINISTERED AT 1310.TYPO ERROR
--- NOTE | 2019-01-04 15:38 | NUR ---
PT ATE LATE LUNCH -WANTING GRILLED CHEESE SANDWICH INSTEAD OF THE LUNCH THAT WAS SERVED TO HER.ADMINISTERED HUMULIN INSULIN 4 UNITS SQ PER SLIDING SCALE.
[2019-01-04 16:00] VITALS: BP 112/70
--- NOTE | 2019-01-04 18:00 | NUR ---
PT RESTING IN BED DENYING ANY PAIN OR DISTRESS.CALL LIGHT PLACED WITHIN REACH.
[2019-01-04 20:00] VITALS: BP 106/71
--- NOTE | 2019-01-04 20:00 | NUR ---
RN NOTES PATIENT IS ALERT AND ORIENTED X4, ON ROOM AIR, NO COMPLAIN OF PAIN, BOWSER CATHETER DUE TO URINARY RETENTION, DRAINING JALEEL URINE, BLE OFFLOADED, LEFT FOOT WOUND WITH DRESSING, WILL CONTINUE TO MONITOR.
[2019-01-04 20:09] VITALS: BP 106/71
[2019-01-04] MEDS: INSULIN GLARGINE, 100 UNIT/ML CARTRIDGE SQ SCH (22:00)
--- NOTE | 2019-01-04 22:32 | NUR ---
RN NOTES PER MD, DO NOT GIVE LANTUS 10 UNITS TONIGHT, BG 95 MG/DL
[2019-01-05] MEDS: ACETAMINOPHEN 325 MG TABLET PO PRN ×2 (02:00→14:02)
[2019-01-05] MEDS: VANCOMYCIN 1 GM in IV D5W 250 ML IV SCH ×2 (02:04→14:43)
[2019-01-05 06:19] LABS: BASOPHILS % (AUTO) 0.4 % (0.0-2.0); EOSINOPHILS % (AUTO) 1.9 % (0.0-6.0); HEMATOCRIT 31 % (33-45); HEMOGLOBIN 10.5 g/dL (11.5-14.8); LYMPHOCYTES # (AUTO) 1.5 /CMM (0.8-4.8); LYMPHOCYTES % (AUTO) 12.8 % (20.0-44.0); MEAN CORPUSCULAR HGB CONC 34 g/dl (31.0-36.0); MEAN CORPUSCULAR VOLUME 85 fL (82-100); MONOCYTES % (AUTO) 8.3 % (2.0-12.0); NEUTROPHILS # (AUTO) 9.1 /CMM (1.8-8.9); NEUTROPHILS % (AUTO) 76.6 % (43.0-81.0); PLATELET COUNT (AUTO) 334 /CMM (150-450); RED BLOOD CELL COUNT(AUTO) 3.65 MIL/uL (4.0-5.2); WHITE BLOOD COUNT (AUTO) 11.8 K/uL (4.3-11.0)
[2019-01-05 06:51] LABS: CALCIUM, SERUM 8.1 mg/dL (8.5-10.1); CREATININE 0.8 mg/dL (0.6-1.3); POTASSIUM 3.6 mmol/L (3.5-5.1)
[2019-01-05] MEDS: BLOOD SUGAR DIAGNOSTIC 1 EACH STRIP IN SCH ×4 (06:58→21:20)
[2019-01-05] MEDS: INSULIN REGULAR, HUMAN 100 UNIT/ML 3 ML VIAL SQ PRN ×2 (06:59→17:28)
--- NOTE | 2019-01-05 06:59 | NUR ---
RN NOTES BG 114 mg/DL, NO INSULIN COVERAGE
[2019-01-05 08:00] VITALS: BP 126/76
[2019-01-05] MEDS: glipiZIDE 10 MG TABLET PO SCH ×2 (08:05→17:17)
[2019-01-05] MEDS: LACTOBACILLUS RHAMNOSUS GG 1 EACH CAP.SPRINK PO SCH ×2 (10:07→17:18)
[2019-01-05] MEDS: RIVAROXABAN 15 MG TABLET PO SCH ×2 (10:08→17:17)
[2019-01-05] MEDS: METFORMIN 500 MG TABLET PO SCH ×2 (10:08→17:18)
[2019-01-05] MEDS: DAKINS HALF STRENGTH (0.25%) 480 ML BOTTLE TOP SCH (10:09)
[2019-01-05] MEDS: LEVOFLOXACIN (500MG) 500 MG TABLET PO SCH (11:41)
[2019-01-05 16:00] VITALS: BP 114/67
--- NOTE | 2019-01-05 19:20 | NUR ---
MS RN OPENING NOTES Received patient in bed, alert, oriented x 3- able to make needs known. Breathing even and unlabored. Not in any distress. No complaints at this time. Call light within reach. Bed in lowest locked position. Patient stable as endorsed by the morning RN. Will continue to monitor accordingly
[2019-01-05 20:00] VITALS: BP 127/78
[2019-01-05] MEDS: INSULIN GLARGINE, 100 UNIT/ML CARTRIDGE SQ SCH (21:22)
[2019-01-05] MEDS: *INSULIN REGULAR(HUMULIN R)HUM 100 UNIT/ML VIAL SQ PRN (21:24)
--- NOTE | 2019-01-05 21:27 | NUR ---
RN NOTES BSL checked- 151mg/dL. 2units insulin given per sliding scale. Lantus 10units given as ordered. Snacks provided.
[2019-01-05] MEDS: MAG HYDROX/AL HYDROX/SIMETH 30 ML UDC PO PRN (22:55)
[2019-01-06] MEDS: VANCOMYCIN 1 GM in IV D5W 250 ML IV SCH ×2 (01:26→13:43)
[2019-01-06] MEDS ORDERED: INDOMETHACIN 25 MG CAPSULE ONE ×2 (01:41→01:42)
[2019-01-06] MEDS: ACETAMINOPHEN 325 MG TABLET PO PRN (03:52)
--- NOTE | 2019-01-06 06:18 | NUR ---
RN NOTES BSL- 122mg/dL. No insulin coverage given per sliding scale
[2019-01-06] MEDS: BLOOD SUGAR DIAGNOSTIC 1 EACH STRIP IN SCH ×4 (07:30→21:22)
[2019-01-06 07:35] LABS: BASOPHILS % (AUTO) 0.3 % (0.0-2.0); EOSINOPHILS % (AUTO) 2.4 % (0.0-6.0); HEMATOCRIT 33 % (33-45); HEMOGLOBIN 11.1 g/dL (11.5-14.8); LYMPHOCYTES # (AUTO) 1.5 /CMM (0.8-4.8); LYMPHOCYTES % (AUTO) 14.1 % (20.0-44.0); MEAN CORPUSCULAR HGB CONC 34 g/dl (31.0-36.0); MEAN CORPUSCULAR VOLUME 85 fL (82-100); MONOCYTES # (AUTO) 0.7 /CMM (0.1-1.30); NEUTROPHILS # (AUTO) 8.2 /CMM (1.8-8.9); NEUTROPHILS % (AUTO) 76.2 % (43.0-81.0); PLATELET COUNT (AUTO) 359 /CMM (150-450); RED BLOOD CELL COUNT(AUTO) 3.85 MIL/uL (4.0-5.2); WHITE BLOOD COUNT (AUTO) 10.7 K/uL (4.3-11.0)
[2019-01-06 07:40] LABS: CALCIUM, SERUM 8.2 mg/dL (8.5-10.1); CREATININE 0.9 mg/dL (0.6-1.3); POTASSIUM 3.7 mmol/L (3.5-5.1)
--- NOTE | 2019-01-06 07:43 | NUR ---
MS RN CLOSING NOTES Patient remains stable. No acute changes during the shift. Godfrey catheter in place, draining well. IV access on L wrist intact and patent. Safety measures in place. Endorsed DAMARIS to AM RN
--- NOTE | 2019-01-06 08:00 | NUR ---
MS RN OPENING NOTES Received Patient awake and resting in bed. A/O x 3. VS stable with no acute distress. Breathing even and unlabored on room air with no respiratory distress. Patient noted moaning and groaning about tolerable pain on LEFT LOWER LEG and denies interventions at this time. LEFT LOWER LEG dressing clean, dry and intact. Elevated BILATERAL LEGS with one pillow per Patients request. Redness noted on groin area. Z-guard applied. PIV on LEFT WRIST 22g clean, dry, intact and flushes well. Godfrey Cath in place and operational. 100ml clear, scout, urine output noted. Safety precautions in place. Bed locked and in lowest position with side rails x 2 up. Call light within reach. Will continue to monitor.
[2019-01-06] MEDS: METFORMIN 500 MG TABLET PO SCH ×2 (08:29→16:42)
[2019-01-06] MEDS: LACTOBACILLUS RHAMNOSUS GG 1 EACH CAP.SPRINK PO SCH ×2 (08:29→16:42)
[2019-01-06 08:32] VITALS: BP 125/68
[2019-01-06] MEDS: RIVAROXABAN 15 MG TABLET PO SCH ×2 (08:34→16:41)
[2019-01-06] MEDS: glipiZIDE 10 MG TABLET PO SCH ×2 (08:36→16:42)
[2019-01-06] MEDS: MAG HYDROX/AL HYDROX/SIMETH 30 ML UDC PO PRN ×2 (08:38→23:11)
[2019-01-06] MEDS: DAKINS HALF STRENGTH (0.25%) 480 ML BOTTLE TOP SCH (09:18)
--- NOTE | 2019-01-06 11:09 | NUR ---
MS RN NOTES Patient left for MRI of LLE at this time.
--- NOTE | 2019-01-06 11:28 | NUR ---
MS RN NOTES Patient returned from MRI of LLE at this time. No acute distress noted. Lunch provided. Will continue to monitor.
[2019-01-06] MEDS: LEVOFLOXACIN (500MG) 500 MG TABLET PO SCH (13:14)
[2019-01-06] MEDS: INSULIN REGULAR, HUMAN 100 UNIT/ML 3 ML VIAL SQ PRN ×2 (13:47→18:58)
[2019-01-06 15:52] VITALS: BP 127/68
--- NOTE | 2019-01-06 19:20 | NUR ---
MS RN OPENING NOTES Received patient sleeping in bed, easily arousable. Breathing even and unlabored. Not in any distress. No complaints at this time. Call light within reach. Bed in lowest locked position. Patient stable as endorsed by the morning RN. Will continue to monitor accordingly
--- NOTE | 2019-01-06 19:27 | NUR ---
MS RN CLOSING NOTES Patient eyes closed and resting in bed. A/O x 3. VS stable with no acute distress. Breathing even and unlabored on room air with no respiratory distress. LEFT LOWER LEG dressing clean, dry and intact. BILATERAL LEGS elevated with one pillow. PIV on LEFT WRIST 22g clean, dry, intact and flushes well. Godfrey Cath in place and operational. 150ml clear, scout, urine output noted. Safety precautions in place. Bed locked and in lowest position with side rails x 2 up. Call light within reach. Will continue to monitor. Addendum: 01/06/19 at 1929 by BEATRICE CARPENTER RN Will endorse plan of care to oncoming nurse.
[2019-01-06 20:00] VITALS: BP 119/66
[2019-01-06] MEDS ORDERED: FLUCONAZOLE IN NS,PREMIX 200 MG in PREMIX 1 EA IV ONE ×2 (20:00)
--- NOTE | 2019-01-06 20:45 | NUR ---
RN NOTES Patient refused to take the dressing off of her left lower extremity. No picture taken. Picture on R lower extremity taken
[2019-01-06] MEDS: INSULIN GLARGINE, 100 UNIT/ML CARTRIDGE SQ SCH (21:23)
[2019-01-06] MEDS: *INSULIN REGULAR(HUMULIN R)HUM 100 UNIT/ML VIAL SQ PRN (21:24)
--- NOTE | 2019-01-06 21:24 | NUR ---
RN NOTES BSL- 141MG/DL. Lantus and 2units insulin given per sliding scale. Snacks provided.
[2019-01-07] MEDS: ONDANSETRON HCL/PF 4 MG/2 ML VIAL IVP PRN (00:37)
--- NOTE | 2019-01-07 00:37 | NUR ---
RN NOTES Patient c/o nausea and vomiting, zofran 4mg IV given as ordered. Will continue to monitor
[2019-01-07] MEDS: VANCOMYCIN 1 GM in IV D5W 250 ML IV SCH (01:37)
--- NOTE | 2019-01-07 04:15 | NUR ---
RN NOTES Noted minimal urine output on edwards catheter. Patient has no complaints of pain upon palpation. Irrigated catheter but still no output. Bladder scanned, noted about 900+ mL. Edwards catheter removed. New edwards catheter in. Drained about 2000mL of scout colored urine with mucous threads.
[2019-01-07] MEDS: BLOOD SUGAR DIAGNOSTIC 1 EACH STRIP IN SCH ×4 (06:30→21:24)
[2019-01-07] MEDS: INSULIN REGULAR, HUMAN 100 UNIT/ML 3 ML VIAL SQ PRN ×2 (06:31→16:46)
--- NOTE | 2019-01-07 06:52 | NUR ---
MS RN CLOSING NOTES Patient resting in bed, A/O x 3. VS stable with no acute distress. Breathing even and unlabored with no respiratory distress. Left lower leg dressing clean, dry and intact. Bilateral legs elevated with pillows. IV access on left wrist 22g clean, dry, intact and flushes well. Godfrey Cath in place and draining well. Safety precautions in place. Bed locked and in lowest position with side rails x2 up. Call light within reach. Will endorse DAMARIS to oncoming RN.
[2019-01-07 06:56] LABS: BASOPHILS % (AUTO) 0.3 % (0.0-2.0); EOSINOPHILS % (AUTO) 1.1 % (0.0-6.0); HEMATOCRIT 34 % (33-45); HEMOGLOBIN 11.4 g/dL (11.5-14.8); LYMPHOCYTES # (AUTO) 1.2 /CMM (0.8-4.8); LYMPHOCYTES % (AUTO) 9.4 % (20.0-44.0); MEAN CORPUSCULAR HGB CONC 34 g/dl (31.0-36.0); MEAN CORPUSCULAR VOLUME 85 fL (82-100); MONOCYTES # (AUTO) 0.6 /CMM (0.1-1.30); MONOCYTES % (AUTO) 5.1 % (2.0-12.0); NEUTROPHILS # (AUTO) 10.7 /CMM (1.8-8.9); NEUTROPHILS % (AUTO) 84.1 % (43.0-81.0); PLATELET COUNT (AUTO) 382 /CMM (150-450); RED BLOOD CELL COUNT(AUTO) 3.99 MIL/uL (4.0-5.2); WHITE BLOOD COUNT (AUTO) 12.7 K/uL (4.3-11.0)
[2019-01-07 07:14] LABS: CALCIUM, SERUM 8.8 mg/dL (8.5-10.1); CREATININE 1.3 mg/dL (0.6-1.3); POTASSIUM 4.3 mmol/L (3.5-5.1)
--- NOTE | 2019-01-07 07:20 | NUR ---
MS RN OPENING NOTE RECEIVED PATIENT IN BED. SLEEPING, EASILY AROUSED WITH VERBAL STIMULI, ORIENTED X4. ON ROOM AIR, TOLERATING WELL. IN NO APPARENT DISTRESS OR DISCOMFORT AT THIS TIME. RESPIRATIONS EVEN AND UNLABORED. DENIES PAIN AND SOB. PATIENT IS ABLE TO COMMUNICATE NEEDS. BOWSER CATHETER IN PLACE, DRAINING JALEEL COLOR URINE WITH SEDIMENTS. LEFT WRIST IVC SL, PATENT AND INTACT. PATIENT KEPT CLEAN AND COMFORTABLE. SAFETY MEASURES IN PLACE, BED IN LOW LOCKED POSITION, SIDE RAILS UP x 2 CALL LIGHT WITHIN EASY REACH, JONO CONTINUE TO MONITOR.
[2019-01-07 08:00] VITALS: BP 150/85
[2019-01-07 08:37] VITALS: BP 150/85
[2019-01-07] MEDS: LACTOBACILLUS RHAMNOSUS GG 1 EACH CAP.SPRINK PO SCH ×2 (08:46→16:45)
[2019-01-07] MEDS: glipiZIDE 10 MG TABLET PO SCH ×2 (08:47→16:45)
[2019-01-07] MEDS: DAKINS HALF STRENGTH (0.25%) 480 ML BOTTLE TOP SCH (08:47)
[2019-01-07] MEDS: METFORMIN 500 MG TABLET PO SCH ×2 (08:47→16:45)
[2019-01-07] MEDS: RIVAROXABAN 15 MG TABLET PO SCH ×2 (08:57→16:46)
[2019-01-07] MEDS: LEVOFLOXACIN (500MG) 500 MG TABLET PO SCH (11:28)
--- NOTE | 2019-01-07 13:20 | NUR ---
PATIENT REFUSED DRESSING CHANGE, ASKED TO COME BACK AFTER THREE PM SHE IS BUSY AT THIS TIME.
--- NOTE | 2019-01-07 15:40 | NUR ---
PATIENT IS STILL REFUSING DRESSING CHANGE, STATES THAT SHE IS STILL BUSY WITH HER BILLS AND SHE HAS TO FINISH EVERYTHING SOON POSSIBLE.
--- NOTE | 2019-01-07 16:00 | NUR ---
DR. LUQUE AT BEDSIDE ASKED THE PATIENT IF OK TO DO DRESSING CHANGE. PATIENT REFUSED AT THIS TIME AGAIN. PATIENT AGREED TO HAVE THE DRESSING CHANGED TOMORROW.
[2019-01-07] MEDS: FLUCONAZOLE (100 MG) 100 MG TABLET GT SCH (18:46)
--- NOTE | 2019-01-07 19:15 | NUR ---
MS RN CLOSING NOTE PATIENT IN BED. ALERT, ORIENTED X4. ON ROOM AIR, TOLERATING WELL. IN NO APPARENT DISTRESS OR DISCOMFORT AT THIS TIME. RESPIRATIONS EVEN AND UNLABORED. DENIES PAIN AND SOB. PATIENT IS ABLE TO COMMUNICATE NEEDS. BOWSER CATHETER IN PLACE, DRAINING JALEEL COLOR URINE WITH SEDIMENTS. LEFT WRIST 22G IVC SL, PATENT AND INTACT. PATIENT KEPT CLEAN AND COMFORTABLE. THROUGHOUT THE SHIFT PATIENT REPEATEDLY REFUSED TO BE REPOSITIONED AND REFUSED DRESSING CHANGE, SAYING THAT SHE IS COMFORTABLE AND BUSY WITH HER PERSONAL THINGS, AND WANTS TO BE LEFT ALONE. ALL NEEDS ATTENDED PER PATIENT'S WISHES, SAFETY MEASURES IN PLACE, BED IN LOW LOCKED POSITION, SIDE RAILS UP x 2 CALL LIGHT WITHIN EASY REACH, WILL ENDORSE TO PM NURSE FOR DAMARIS.
--- NOTE | 2019-01-07 19:30 | NUR ---
RN MS OPENING NOTES RECEIVED PATIENT IN BED AWAKE, ALERT AND ORIENTED X3, VERBALLY RESPONSIVE, ABLE TO MAKE NEEDS KNOWN. BREATHING EVEN AND UNLABORED. NO SOB NOTED. TOLERATING ROOM AIR. CURRENTLY WITH NO COMPLAINTS OF PAIN OR DISCOMFORT. NO FACIAL GRIMACING. IV ON LEFT WRIST INTACT AND PATENT. PATIENT NOTED WITH BOWSER CATH - INTACT AND DRAINING WELL. SKIN DRY AND WARM TO TOUCH. AFEBRILE. DRESSING ON LEFT LOWER EXTREMITY STILL INTACT BUT WILL ENCOURAGE PATIENT TO HAVE A DRESSING CHANGE. ALL OTHER NEEDS MET. SAFETY MEASURES IN PLACE. CALL LIGHT WITHIN REACH. WILL CONTINUE TO MONITOR.
[2019-01-07 20:00] VITALS: BP 144/75
[2019-01-07] MEDS: INSULIN GLARGINE, 100 UNIT/ML CARTRIDGE SQ SCH (21:24)
[2019-01-07] MEDS: *INSULIN REGULAR(HUMULIN R)HUM 100 UNIT/ML VIAL SQ PRN (21:25)
--- NOTE | 2019-01-07 21:26 | NUR ---
RN MS NOTES BLOOD SUGAR 102 - LANTUS AND REGULAR INSULIN HELD TONIGHT. WILL CONTINUE TO MONITOR.
[2019-01-07] MEDS ORDERED: VANCOMYCIN 1 GM in IV D5W 250 ML IV SCH (22:00)
[2019-01-08 06:32] LABS: BASOPHILS % (AUTO) 0.4 % (0.0-2.0); EOSINOPHILS % (AUTO) 1.9 % (0.0-6.0); HEMATOCRIT 33 % (33-45); HEMOGLOBIN 11.1 g/dL (11.5-14.8); LYMPHOCYTES # (AUTO) 1.8 /CMM (0.8-4.8); MEAN CORPUSCULAR HGB CONC 34 g/dl (31.0-36.0); MEAN CORPUSCULAR VOLUME 84 fL (82-100); MONOCYTES # (AUTO) 0.7 /CMM (0.1-1.30); MONOCYTES % (AUTO) 6.9 % (2.0-12.0); NEUTROPHILS # (AUTO) 7.7 /CMM (1.8-8.9); NEUTROPHILS % (AUTO) 73.8 % (43.0-81.0); PLATELET COUNT (AUTO) 359 /CMM (150-450); RED BLOOD CELL COUNT(AUTO) 3.88 MIL/uL (4.0-5.2); WHITE BLOOD COUNT (AUTO) 10.5 K/uL (4.3-11.0)
[2019-01-08 06:33] LABS: CALCIUM, SERUM 8.4 mg/dL (8.5-10.1); CREATININE 1.4 mg/dL (0.6-1.3)
[2019-01-08] MEDS: INSULIN REGULAR, HUMAN 100 UNIT/ML 3 ML VIAL SQ PRN ×3 (06:41→17:21)
[2019-01-08] MEDS: BLOOD SUGAR DIAGNOSTIC 1 EACH STRIP IN SCH ×4 (06:41→21:08)
--- NOTE | 2019-01-08 06:54 | NUR ---
RN MS CLOSING NOTES PATIENT RESTING IN BED. NO ACUTE CHANGES THROUGHOUT SHIFT. BREATHING EVEN AND UNLABORED. NO SOB NOTED. TOLERATING ROOM AIR. CURRENTLY WITH NO COMPLAINTS OF PAIN OR DISCOMFORT. NO FACIAL GRIMACING. IV ON LEFT WRIST INTACT AND PATENT. PATIENT WITH BOWSER CATH - INTACT AND DRAINING WELL. DRESSING ON LEFT LOWER EXTREMITY CHANGED. PICTURES ALSO TAKEN SINCE PATIENT REFUSED ON MONDAY. ALL OTHER NEEDS MET. SAFETY MEASURES IN PLACE. CALL LIGHT WITHIN REACH. WILL ENDORSE TO ONCOMING NURSE FOR DAMARIS.
[2019-01-08 08:00] VITALS: BP 168/86
[2019-01-08] MEDS: LACTOBACILLUS RHAMNOSUS GG 1 EACH CAP.SPRINK PO SCH ×2 (08:07→17:26)
[2019-01-08] MEDS: glipiZIDE 10 MG TABLET PO SCH ×2 (08:07→17:26)
[2019-01-08] MEDS: METFORMIN 500 MG TABLET PO SCH (08:07)
[2019-01-08] MEDS: HYDROCODONE/APAP 5/325MG 1 EACH TABLET PO PRN (08:07)
[2019-01-08] MEDS: RIVAROXABAN 15 MG TABLET PO SCH (08:11)
[2019-01-08] MEDS: DAKINS HALF STRENGTH (0.25%) 480 ML BOTTLE TOP SCH (09:00)
--- NOTE | 2019-01-08 09:00 | NUR ---
m/s plant custodian: notes pt wants to have her dressing not remove, tx was done early this morning as stated. instructed to call for assistance.
[2019-01-08] MEDS: CEFTRIAXONE 1 G in IV D5W 50 ML IV SCH (10:52)
--- NOTE | 2019-01-08 11:00 | NUR ---
m/s thread puller: notes urine collected via f/c port. called lab, spoke to cole to powdered metal supervisor the specimen in ref.
--- NOTE | 2019-01-08 12:00 | NUR ---
M/S RECOVERY ROOM NURSE: NOTES INSERTED PICC LINE TO LEFT UPPER ARM, 5FR BY JOAN (PICC LINE NURSE)SUSIE. WELL UNDER ULTRASOUND MACHINE. PICC LINE OKAY TO USE PER JOAN. Addendum: 01/08/19 at 1222 by SANDEEP FERRERA LVN CORRECTION ON PICC LINE SITE. PICC LINE ON RIGHT UPPER ARM.
[2019-01-08] MEDS: IV D5/0.45 NACL 1,000 ML IV PRN (13:25)
--- NOTE | 2019-01-08 13:30 | NUR ---
m/s dispatch clerk: notes dressing to left foot done by rn students with instructed present. dr. day (dpm) at bedside and schedule pt for left foot wound debridement tomorrow at 1100. pt verbalized understanding and will sign all consents later as stated. instructed to call for assistance. will monitor.
[2019-01-08 13:49] LABS: CREATININE, URINE 59.8 MG/DL (30.0-125.0); URINE TOTAL PROTEIN 164.3 mg/dL (0-11.9)
[2019-01-08 14:27] LABS: BILIRUBIN,URINE NEGATIVE (NEGATIVE); BLOOD, URINE 3+ Ery/uL (NEGATIVE); COLOR,URINE YELLOW (YELLOW); KETONES,URINE NEGATIVE (NEGATIVE); LEUKOCYTE ESTERASE ,URINE 1+ (NEGATIVE); NITRITE, URINE NEGATIVE (NEGATIVE); PH,URINE 5.5 (5.0-8.0); PROTEIN,URINE 2+ mg/dl (NEGATIVE); UGLUCOSE NEGATIVE (NEGATIVE); UROBILINOGEN,URINE 0.2 EU/dL (0.2)
[2019-01-08 14:36] LABS: APPEARANCE,URINE CLOUDY (CLEAR)
[2019-01-08 14:37] LABS: RBC,URINE 30-50 /HPF (0-2)
[2019-01-08 14:38] LABS: BACTERIA,URINE FEW /HPF (None Seen); SQUAMOUS EPITHELIAL CELL,UR Moderate /HPF (None Seen); WBC,URINE 25-30 /HPF (0-3)
--- NOTE | 2019-01-08 15:00 | NUR ---
m/s abatement worker: notes consent obtained including anesthesia, and blood products for left foot wound debridement tomorrow morning and placed in chart. pt verbalized understanding.
[2019-01-08 15:57] LABS: EOSINOPHIL,URINE None Seen
[2019-01-08 16:00] VITALS: BP 121/88
--- NOTE | 2019-01-08 16:30 | NUR ---
m/s conductor/engineer: notes daughter visiting and updated plan of care including plan for debridement tomorrow morning.
[2019-01-08] MEDS: FLUCONAZOLE (100 MG) 100 MG TABLET GT SCH (17:26)
--- NOTE | 2019-01-08 18:43 | NUR ---
m/s pantographer: notes in bed resting comfortable. iv fluids infusing well via picc line to right upper arm. needs attended. no acute distress noted. instructed to call for assistance. will continue to monitor.
--- NOTE | 2019-01-08 19:00 | NUR ---
m/s manager practice: notes report given to wagner (rn) for continuity of care.
--- NOTE | 2019-01-08 19:54 | NUR ---
MS/RN OPENING NOTES RECEIVED PATIENT IN BED, AWAKE, ALERT, X3, ABLE TO VERBALIZE NEEDS, REQUIRE ASSISTANCE FOR ADLS, WITH CELLULITIS OF LEFT FOOT, FOR PROCEDURE OR IN AM FOR DEBRIDEMENT, CONSENT HAS BEEN SIGNED. BED LOCKED, CALL LIGHTS WITHIN REACH, RESPIRATIONS EVEN AND UNLABORED, WILL MONITOR.
[2019-01-08 20:00] VITALS: BP 147/79
[2019-01-08] MEDS: INSULIN GLARGINE, 100 UNIT/ML CARTRIDGE SQ SCH (21:37)
[2019-01-08] MEDS: *INSULIN REGULAR(HUMULIN R)HUM 100 UNIT/ML VIAL SQ PRN (21:39)
[2019-01-09] MEDS: IV D5/0.45 NACL 1,000 ML IV PRN (03:29)
[2019-01-09] MEDS: BLOOD SUGAR DIAGNOSTIC 1 EACH STRIP IN SCH ×4 (05:43→21:44)
--- NOTE | 2019-01-09 05:48 | NUR ---
MS/RN NOTES BLOOD SUGAR AT 149, ON NPO STATUS FOR PROCEDURE IN AM.
--- NOTE | 2019-01-09 06:29 | NUR ---
315-1 MS/RN NOTES PATIENT IN BED, ABLE TO SLEEP DURING THE NIGHT, RESPIRATIONS EVEN AND UNLABORED, NPO FOR PROCEDURE WOUND DEBRIDEMENT IN MORNING, MONITORED FOR ANY CHANGES, RESPIRATIONS EVEN AND UNLABORED. , DENIES PAIN. WILL MONITOR. WILL ENDORSE TO AM RN FOR DAMARIS.
[2019-01-09 06:40] LABS: BASOPHILS # (AUTO) 0.1 /CMM (0.0-0.2); BASOPHILS % (AUTO) 0.5 % (0.0-2.0); EOSINOPHILS % (AUTO) 2.2 % (0.0-6.0); HEMATOCRIT 27 % (33-45); HEMOGLOBIN 9.2 g/dL (11.5-14.8); LYMPHOCYTES # (AUTO) 1.4 /CMM (0.8-4.8); LYMPHOCYTES % (AUTO) 14.7 % (20.0-44.0); MEAN CORPUSCULAR HGB CONC 34 g/dl (31.0-36.0); MEAN CORPUSCULAR VOLUME 85 fL (82-100); MONOCYTES # (AUTO) 0.7 /CMM (0.1-1.30); MONOCYTES % (AUTO) 7.1 % (2.0-12.0); NEUTROPHILS # (AUTO) 7.1 /CMM (1.8-8.9); NEUTROPHILS % (AUTO) 75.5 % (43.0-81.0); PLATELET COUNT (AUTO) 303 /CMM (150-450); RED BLOOD CELL COUNT(AUTO) 3.13 MIL/uL (4.0-5.2); WHITE BLOOD COUNT (AUTO) 9.4 K/uL (4.3-11.0)
[2019-01-09] MEDS: glipiZIDE 10 MG TABLET PO SCH ×2 (07:30→17:21)
[2019-01-09 08:00] VITALS: BP 145/85
[2019-01-09] MEDS: DAKINS HALF STRENGTH (0.25%) 480 ML BOTTLE TOP SCH (09:00)
[2019-01-09] MEDS: LACTOBACILLUS RHAMNOSUS GG 1 EACH CAP.SPRINK PO SCH ×2 (09:00→17:21)
[2019-01-09 09:11] LABS: CALCIUM, SERUM 8.4 mg/dL (8.5-10.1); CREATININE 1.4 mg/dL (0.6-1.3); MAGNESIUM 1.6 mg/dL (1.8-2.4); PHOSPHORUS 3.8 mg/dL (2.5-4.9)
[2019-01-09] MEDS: CEFTRIAXONE 1 G in IV D5W 50 ML IV SCH (10:53)
[2019-01-09] MEDS ORDERED: BUPIVACAINE 0.5 % PF 150 MG/30 ML VIAL ONE (11:33)
[2019-01-09] MEDS ORDERED: LIDOCAINE 0.5% HCL 50 ML VIAL ONE (11:34)
[2019-01-09] MEDS ORDERED: LIDOCAINE HCL/PF 1% 30 ML SDV ONE (11:35)
--- NOTE | 2019-01-09 11:45 | NUR ---
PATIENT PICKED UP BY OR FOR SURGERY
[2019-01-09] MEDS ORDERED: BUPIVACAINE 0.25% 75 MG/30 ML VIAL ONE (11:54)
[2019-01-09] MEDS ORDERED: FENTANYL PF 100MCG/2ML AMPUL ONE (12:00)
[2019-01-09] MEDS: INSULIN REGULAR, HUMAN 100 UNIT/ML 3 ML VIAL SQ PRN ×2 (12:31→17:29)
--- NOTE | 2019-01-09 13:30 | NUR ---
PATIENT BACK FROM OR. A/OX4 , NO DISTRESS NOTED. RESUME ALL PREVIOUS ORDERS.
[2019-01-09] MEDS: Magnesium 1GM/D5W 100ML PREMIX 100 ML IV SCH ×2 (15:54→17:21)
[2019-01-09 16:00] VITALS: BP 135/78
[2019-01-09] MEDS: HYDROCODONE/APAP 5/325MG 1 EACH TABLET PO PRN ×2 (16:06→22:29)
[2019-01-09] MEDS: FLUCONAZOLE (100 MG) 100 MG TABLET GT SCH (18:08)
--- NOTE | 2019-01-09 18:59 | NUR ---
PATIENT A/OX4 WITH NO DISTRESS NOTED. VS ARE STABLE ON ROOM AIR. PATIENT S/P WOUND DEBRIDEMENT L LEG ; PAIN MEDICATION GIVEN NEEDED. NO DRESSING CHANGE NEEDED TODAY OR TONIGHT. F/C OUTPUT 1750ML. SAFETY PRECAUTIONS IN PLACE, CALL LIGHT WITHIN REACH. WILL ENDORSE TO NEXT SHIFT.
--- NOTE | 2019-01-09 19:49 | NUR ---
MS/RN OPENING NOTES RECEIVED PATIENT IN BED, HOB ELEVATED, ALERT X3, ABLE TO VERBALIZE NEEDS, KEPT BELONGINGS WITHIN REACH, PROVIDED FLUIDS TO DRINK, ASSISTED WITH ALL NEEDS. RESPIRATIONS EVEN AND UNLABORES, CALL LIGHTS WITHIN REACH, BED LOCKED, NO PAIN VERBALIZED BUT MONITORED FOR ANY CHANGES. HAD PROCEDURE ON LEFT FOOD, WOUND DEBRIDEMENT. MAGNESIUM WAS REPLACED. RECEIVED ENDORSEMENT FROM AM RN FOR DAMARIS. WILL MONITOR.REQUIRE EXTENSIVE ASSISTANCE.
[2019-01-09 20:00] VITALS: BP 133/90
[2019-01-09] MEDS: INSULIN GLARGINE, 100 UNIT/ML CARTRIDGE SQ SCH (21:53)
[2019-01-09] MEDS: *INSULIN REGULAR(HUMULIN R)HUM 100 UNIT/ML VIAL SQ PRN (21:55)
--- NOTE | 2019-01-09 22:32 | NUR ---
MS/RN NOTES PATIENT REQUESTED PAIN MEDICATION NORCO ORDERED TO RELIEVE PAIN ON LEFT FOOT S/P WOUND DEBRIDEMENT, BLOOD PRESSURE CHECK SBP ABOVE 120,. WILL MONITOR.
[2019-01-10] MEDS: BLOOD SUGAR DIAGNOSTIC 1 EACH STRIP IN SCH ×2 (06:11→11:44)
[2019-01-10] MEDS: INSULIN REGULAR, HUMAN 100 UNIT/ML 3 ML VIAL SQ PRN ×2 (06:40→11:46)
--- NOTE | 2019-01-10 06:54 | NUR ---
315-1 MS/RN NOTES PATIENT ABLE TO SLEEP DURING THE NIGHT, ON PAIN MANAGEMENT MONITORING, RESPIRATIONS EVEN AND UNLABORED. CALL LIGHTS WITHIN REACH, WILL MONITOR.
[2019-01-10 07:34] LABS: CREATININE 1.4 mg/dL (0.6-1.3); POTASSIUM 3.7 mmol/L (3.5-5.1)
[2019-01-10 08:00] VITALS: BP 147/82
[2019-01-10] MEDS: LACTOBACILLUS RHAMNOSUS GG 1 EACH CAP.SPRINK PO SCH (09:12)
[2019-01-10] MEDS: glipiZIDE 10 MG TABLET PO SCH (09:12)
[2019-01-10] MEDS: HYDROCODONE/APAP 5/325MG 1 EACH TABLET PO PRN ×3 (09:13→16:11)
[2019-01-10] MEDS: DAKINS HALF STRENGTH (0.25%) 480 ML BOTTLE TOP SCH (09:16)
[2019-01-10] MEDS: CEFTRIAXONE 1 G in IV D5W 50 ML IV SCH (09:16)
[2019-01-10] MEDS ORDERED: SODI480S2 TOP (10:14)
[2019-01-10] MEDS ORDERED: CEFT1FRO2 IV (10:14)
[2019-01-10] MEDS ORDERED: LACT1CAP72 PO (10:14)
[2019-01-10] MEDS ORDERED: RIVA10TA PO (10:25)
--- NOTE | 2019-01-10 12:30 | NUR ---
DRESSING CHANGED ORDERED. PATIENT MEDICATED BEFORE WOUND CARE. POSTDEBRIDEMENT PICTURE TAKEN AND PLACED IN THE CHART
[2019-01-10 16:00] VITALS: BP 173/83
--- NOTE | 2019-01-10 16:45 | NUR ---
patient [facility]. Pt awake a/o x 4 , cooperative. No distress noted, VS are stable and within pt's baseline, on room air saturating 98%. Dressing changed prior to D/c , some pictures taken and placed in the chart, some of wasn't because patient refused. D/C instructions and education given to patient; patient verbalized understanding.D/c instruction form sighed. Valuable form sighed:all belongings with the patient including principal trainer. Patient will have antibiotic IV for 4 weeks and right upper arm picc line in place intact and patent , flushing well. Patient picked up by ambulance and safely transferred via gurney.
== END 2019-01-10 17:00 | DRG 853 ==
LOC: ER 08:51 → TELE 12:05 → MED 12-31 09:45
PROVIDERS: ADMIT Internal Medicine; ATTEND Internal Medicine
PROC: 0JBR0ZZ Excision of Left Foot Subcutaneous Tissue and Fascia, Open Approach (ICD-10-PCS; principal; 2019-01-05)
PROC: 0KBT0ZZ Excision of Left Lower Leg Muscle, Open Approach (ICD-10-PCS; 2019-01-05)
PROC: B548ZZA Ultrasonography of Superior Vena Cava, Guidance (ICD-10-PCS; 2019-01-07)
PROC: 02HV33Z Insertion of Infusion Device into Superior Vena Cava, Percutaneous Approach (ICD-10-PCS; 2019-01-08)
PROC: 0KBW0ZZ Excision of Left Foot Muscle, Open Approach (ICD-10-PCS; 2019-01-09)
DX: A41.9 Sepsis, unspecified organism (principal); G92 Toxic encephalopathy; I82.402 Acute embolism and thrombosis of unspecified deep veins of left lower extremity; E87.1 Hypo-osmolality and hyponatremia; E44.0 Moderate protein-calorie malnutrition; L03.116 Cellulitis of left lower limb; E11.52 Type 2 diabetes mellitus with diabetic peripheral angiopathy with gangrene; M86.9 Osteomyelitis, unspecified; Z68.41 Body mass index [BMI] 40.0-44.9, adult; N17.9 Acute kidney failure, unspecified; E11.65 Type 2 diabetes mellitus with hyperglycemia; E11.42 Type 2 diabetes mellitus with diabetic polyneuropathy; Z88.0 Allergy status to penicillin; Z91.041 Radiographic dye allergy status; Z79.84 Long term (current) use of oral hypoglycemic drugs; E11.621 Type 2 diabetes mellitus with foot ulcer; E86.9 Volume depletion, unspecified; E87.5 Hyperkalemia; I25.2 Old myocardial infarction; I48.91 Unspecified atrial fibrillation; K76.0 Fatty (change of) liver, not elsewhere classified; M19.90 Unspecified osteoarthritis, unspecified site; M51.36 Other intervertebral disc degeneration, lumbar region; E11.69 Type 2 diabetes mellitus with other specified complication; Z79.2 Long term (current) use of antibiotics; E66.01 Morbid (severe) obesity due to excess calories; R22.2 Localized swelling, mass and lump, trunk; B95.1 Streptococcus, group B, as the cause of diseases classified elsewhere; L72.3 Sebaceous cyst; I50.9 Heart failure, unspecified; I11.0 Hypertensive heart disease with heart failure
CPT/HCPCS: 36415; 36569; 70450-TC; 71045-TC; 71250-TC; 73630-TC; 73718-TC; 76770-TC; 80048-TC; 80053-TC; 80061-TC; 80076-TC; 80202-TC; 81000-TC; 82570-TC; 82962-TC; 83605-TC; 83735-TC; 84100-TC; 84155-TC; 84300-TC; 84484-TC; 85025-TC; 85652-TC; 85730-TC; 87040-TC; 87070-TC; 87075-TC; 87081-TC; 87086-TC; 87186-TC; 93926-TC; 93971-TC; A4216; A4217; A6209; A6253; A6402; A6403; G0378; J0696; J1450; J1815; J1940; J2185; J2270; J2405; J2704; J3010; J3370; J3475; J3490; J7030; J7040; J7050; J7060

== ENCOUNTER 2019-02-04 09:31 | Inpatient (IN) | payer MEDICARE ==
[~2019-02-04] VITALS: Ht 172.7 cm; Wt 117.9 kg
[~2019-02-04 09:31] MED LIST: ACET1TAB12 PO; CEFT1FRO2 IV; GLIP5TAB13 PO; LACT1CAP72 PO; METF-440 PO; NITR0.4T48 SL; RANI150C4 PO; RIVA10TA PO; SODI480S2 TOP
--- NOTE | 2019-02-04 09:35 | NUR ---
PT LISA FROM SNF FOR POSSIBLE WOUND DEBRIDMENT, PT AAOX4, PT TO BED 10, VSS, NAD NOTED, PENDING MD SEVILLA
[2019-02-04] MEDS ORDERED: SACC250C PO (10:05)
[2019-02-04] MEDS ORDERED: MAGN400O6 PO (10:05)
[2019-02-04] MEDS ORDERED: RIVA10TA PO (10:05)
[2019-02-04] MEDS ORDERED: DOCU-141 PO (10:05)
[2019-02-04] MEDS ORDERED: GLIP10TA3 PO (10:05)
[2019-02-04] MEDS ORDERED: CEFT1VIA15 IV (10:05)
[2019-02-04] MEDS ORDERED: INSU100V27 SQ (10:05)
[2019-02-04] MEDS ORDERED: CRAN450C PO (10:05)
[2019-02-04] MEDS ORDERED: MAG30ORA PO (10:05)
[2019-02-04] MEDS ORDERED: PANT40TA2 PO (10:05)
[2019-02-04] MEDS ORDERED: ACET-73 PO (10:05)
[2019-02-04] MEDS ORDERED: ASCO500T8 PO (10:05)
[2019-02-04] MEDS ORDERED: MULT-213 PO (10:05)
[2019-02-04] MEDS ORDERED: NA P133E RC (10:05)
[2019-02-04] MEDS ORDERED: BISA10SU61 RC (10:05)
[2019-02-04] MEDS ORDERED: MAG355OR18 PO (10:05)
[2019-02-04] MEDS ORDERED: HYDR-3974 PO (10:05)
[2019-02-04] MEDS ORDERED: AMIN30LI2 PO (10:05)
[2019-02-04] MEDS ORDERED: INSU100V7 SQ (10:05)
[2019-02-04 10:12] LABS: BASOPHILS # (AUTO) 0.1 /CMM (0.0-0.2); BASOPHILS % (AUTO) 0.7 % (0.0-2.0); EOSINOPHILS % (AUTO) 1.5 % (0.0-6.0); HEMATOCRIT 30 % (33-45); HEMOGLOBIN 10.2 g/dL (11.5-14.8); LYMPHOCYTES # (AUTO) 1.7 /CMM (0.8-4.8); LYMPHOCYTES % (AUTO) 22.5 % (20.0-44.0); MEAN CORPUSCULAR HGB CONC 34 g/dl (31.0-36.0); MEAN CORPUSCULAR VOLUME 86 fL (82-100); MONOCYTES # (AUTO) 0.6 /CMM (0.1-1.30); MONOCYTES % (AUTO) 7.5 % (2.0-12.0); NEUTROPHILS # (AUTO) 5.1 /CMM (1.8-8.9); NEUTROPHILS % (AUTO) 67.8 % (43.0-81.0); PLATELET COUNT (AUTO) 262 /CMM (150-450); RED BLOOD CELL COUNT(AUTO) 3.53 MIL/uL (4.0-5.2); WHITE BLOOD COUNT (AUTO) 7.6 K/uL (4.3-11.0)
[2019-02-04 10:20] LABS: CALCIUM, SERUM 8.7 mg/dL (8.5-10.1); CARBON DIOXIDE 27 mmol/L (21-32); CHLORIDE 104 mmol/L (98-107); CREATININE 0.9 mg/dL (0.6-1.3); GLUCOSE 211 mg/dL (74-106); POTASSIUM 4.6 mmol/L (3.5-5.1); SODIUM SERUM 139 mmol/L (136-145); UREA NITROGEN, BLOOD 30 mg/dL (7-18)
--- NOTE | 2019-02-04 10:26 | NUR ---
CALLED NURSING SUP FOR BED
[2019-02-04 10:37] LABS: ALANINE AMINOTRANSFERASE 96 U/L (12-78); ALBUMIN 2.7 g/dL (3.4-5.0); ALKALINE PHOSPHATASE 104 U/L (46-116); ASPARTATE AMINOTRANSFERASE 20 U/L (15-37); BILIRUBIN,TOTAL 0.2 mg/dL (0.2-1.0); TOTAL PROTEIN, SERUM 7.2 g/dL (6.4-8.2)
--- NOTE | 2019-02-04 10:41 | NUR ---
BED 114-1
[2019-02-04] MEDS ORDERED: BISACODYL SUPP (10 MG) 10 MG/SUPP.RECT SUPP.RECT RC PRN (11:30)
[2019-02-04] MEDS ORDERED: ONDANSETRON HCL/PF 4 MG/2 ML VIAL IVP PRN (11:30)
[2019-02-04] MEDS ORDERED: MAG HYDROX/AL HYDROX/SIMETH 30 ML UDC PO PRN (11:30)
[2019-02-04] MEDS ORDERED: HYDROCODONE/APAP 10/325MG 1 EA TABLET PO PRN (11:30)
[2019-02-04] MEDS ORDERED: Z GUARD REMEDY 2 OZ OINT TP PRN (11:30)
[2019-02-04] MEDS ORDERED: ACETAMINOPHEN 325 MG TABLET PO PRN (11:30)
[2019-02-04] MEDS ORDERED: MISCELLANEOUS MED 1 EA EA PO PRN (11:30)
[2019-02-04] MEDS ORDERED: MAGNESIUM HYDROXIDE 30 ML UDC PO PRN (11:30)
--- NOTE | 2019-02-04 11:36 | NUR ---
REPORT GIVEN TO LUCIA SANDHU FOR DAMARIS
[2019-02-04] MEDS ORDERED: FEE PK DOSING 1 MIN EA MC ONE (12:24)
--- NOTE | 2019-02-04 12:30 | NUR ---
PT WAS TRANSPORTED TO 1ST FLOOR VIA GURNEY WITH EMT AND RN
--- NOTE | 2019-02-04 13:00 | NUR ---
JUNIOR BRAND MANAGER NOTES PATIENT CAME IN VIA GURNEY. C/C WAS LEFT WOUND DEBRIDEMENT. HAS A BOWSER CATH WITH CLEAR AND YELLOW URINE. PATIENT IS ALERT AND ORIENTED X4. STATES UNABLE TO AMBULATE. ON CCHO DIET. HAS A RIGHT UPPER ARM PICC. PATIENT GOT SITUATED WITH THE NEW ENVIRONMENT. WOUND PICTURES IN CHART. BED LOCKED AND IN LOW POSITION. CALL LIGHT WITHIN REACH. WILL CONTINUE TO MONITOR
[2019-02-04] MEDS: PROSOURCE / PROSTAT (PYXIS) 30 ML UDC PO SCH (13:23)
[2019-02-04] MEDS: VANCOMYCIN 1 GM in IV D5W 250 ML IV SCH (13:51)
[2019-02-04] MEDS: IV NS 0.9% 1,000 ML IV PRN (13:58)
[2019-02-04 16:00] VITALS: BP 115/72
--- NOTE | 2019-02-04 16:00 | NUR ---
SUPERVISOR REFRACTORY PRODUCTS NOTES PATIENT CAME VIA GURNEY WITH TRANSPORTERS. C/C WAS LEFT FOOT WOUND DEBRIDEMENT.
[2019-02-04] MEDS: LACTOBACILLUS RHAMNOSUS GG 1 EACH CAP.SPRINK PO SCH (16:49)
--- NOTE | 2019-02-04 18:29 | NUR ---
RN CLOSING NOTES PATIENT IN BED, AWAKE AND ALERT. ALL MEDS DUE THIS AFTERNOON TAKEN. ATE LUNCH AND DINNER. NO COMPLAIN OF ANY PAIN OR ANY DISTRESS. BOWSER CATH OUTPUT WAS 1800ML. NO BM. HAS NS RUNNING AT 75 ML/HR ORDERED. LEFT LATERAL FOOT WOUND DEBRIDEMENT SCHEDULED ON 02/06 AT 1000. CONSENT FORM SIGNED. FULL CODE STATUS POLST SIGNED. NPO MIDNIGHT THE DAY BEFORE DEBRIDEMENT. BED LOCKED AND IN LOW POSITION. CALL LIGHT WITHIN REACH. WILL ENDORSE TO NOC SHIFT RN
[2019-02-04 20:00] VITALS: BP 116/83
[2019-02-04] MEDS: INSULIN GLARGINE, 100 UNIT/ML CARTRIDGE SQ SCH (21:37)
--- NOTE | 2019-02-05 | NUR ---
RN NOTE PATIENT WILL REMAIN NPO AFTER MIDNIGHT
[2019-02-05] MEDS: VANCOMYCIN 1 GM in IV D5W 250 ML IV SCH ×2 (00:16→13:02)
[2019-02-05] MEDS: HYDROCODONE/APAP 5/325MG 1 EACH TABLET PO PRN ×2 (02:19→20:36)
[2019-02-05 04:00] VITALS: BP 120/63
[2019-02-05] MEDS: PANTOPRAZOLE 40 MG TABLET.DR PO SCH (07:30)
--- NOTE | 2019-02-05 07:30 | NUR ---
MS RN OPENING NOTES RECEIVED PT LAYING IN BED WITH HOB ELEVATED. PT IS A/O X4, AFEBRILE. RESPIRATIONS ARE EVEN AND UNLABORED, NOT IN ANY ACUTE DISTRESS NOTED. PT DENIES ANY PAIN AT THIS TIME, NO C/O SOB, N/V. PICCLINE NOTED TO JUAN INTACT, NO INFILTRATION NOTED. DRESSING KEPT CLEAN AND DRY. BOWSER CATH IN PLACE, TUBING FREE OF KINKS, DRAINING CLEAR/YELLOW URINE. DENIES ANY BLADDER DISCOMFORT. PER PT, SHE HAS SURGERY TODAY FOR WOUND DEBRIDEMENT. WILL FOLLOW UP. SAFETY MEASURES ARE IN PLACE. INSTRUCTED PT TO USE CALL LIGHT WHEN ASSISTANCE IS NEEDED, CALL LIGHT IS LEFT WITHIN REACH. WILL MONITOR THROUGHOUT SHIFT FOR CONTINUITY OF CARE.
[2019-02-05 07:47] LABS: BASOPHILS % (AUTO) 0.6 % (0.0-2.0); HEMATOCRIT 32 % (33-45); HEMOGLOBIN 10.8 g/dL (11.5-14.8); LYMPHOCYTES # (AUTO) 1.5 /CMM (0.8-4.8); MEAN CORPUSCULAR HGB CONC 34 g/dl (31.0-36.0); MEAN CORPUSCULAR VOLUME 85 fL (82-100); MONOCYTES # (AUTO) 0.3 /CMM (0.1-1.30); MONOCYTES % (AUTO) 5.5 % (2.0-12.0); NEUTROPHILS # (AUTO) 4.2 /CMM (1.8-8.9); NEUTROPHILS % (AUTO) 66.9 % (43.0-81.0); PLATELET COUNT (AUTO) 302 /CMM (150-450); RED BLOOD CELL COUNT(AUTO) 3.71 MIL/uL (4.0-5.2); WHITE BLOOD COUNT (AUTO) 6.2 K/uL (4.3-11.0)
[2019-02-05] MEDS: IV NS 0.9% 1,000 ML IV PRN (07:57)
[2019-02-05 07:58] LABS: CALCIUM, SERUM 8.8 mg/dL (8.5-10.1); CREATININE 0.9 mg/dL (0.6-1.3); MAGNESIUM 1.7 mg/dL (1.8-2.4); PHOSPHORUS 3.9 mg/dL (2.5-4.9); POTASSIUM 4.1 mmol/L (3.5-5.1)
[2019-02-05 08:00] VITALS: BP 90/57
[2019-02-05 08:07] LABS: THYROID STIMULATING HORMONE 2.364 uIU/mL (0.358-3.74)
--- NOTE | 2019-02-05 08:10 | NUR ---
MS RN NOTES-- RECEIVED REPORT FROM RESTAURANT GREETER STATING PT IS NPO D/T SURGERY FOR WOUND DEBRIDEMENT TO LEFT FOOT. CONSENTS SIGNED.
--- NOTE | 2019-02-05 08:50 | NUR ---
MS RN NOTES-- PT C/O GENERALIZED PAIN 06/20. NOTIFIED MENDEZ, AIDS SOCIAL WORKER RE: PT'S PAIN AND NPO. MENDEZ CAME AND SAW THE PT AND ORDERED DILAUDID 1MG IVP. NOTED AND CARRIED OUT.
[2019-02-05] MEDS: PROSOURCE / PROSTAT (PYXIS) 30 ML UDC PO SCH (08:54)
[2019-02-05] MEDS: ASCORBIC ACID 500 MG TABLET PO SCH (08:54)
[2019-02-05] MEDS: LACTOBACILLUS RHAMNOSUS GG 1 EACH CAP.SPRINK PO SCH ×2 (08:54→16:36)
[2019-02-05] MEDS: MULTIVIT W/MINERALS 1 TAB TABLET PO SCH (08:54)
[2019-02-05] MEDS: DOCUSATE SODIUM 100 MG CAPSULE PO SCH (08:54)
[2019-02-05] MEDS ORDERED: HYDROMORPHONE 1 MG/1 ML DISP.SYRIN IV ONE (09:00)
--- NOTE | 2019-02-05 09:20 | NUR ---
MS RN NOTES-- PT NOW REFUSES [id number] IVP. EXPLAINED FOR THE PT THAT MEDICATION HAS TO BE VERIFIED BY THE PHARMACY PRIOR TO ADMINISTERING. PT STATED "I DONT WANT IT NOW." OFFERED TO REPOSITION THE PT TO COMFORT OR ANY OTHER ALTERNATIVE PAIN MANAGEMENT. PT STATED "JUST GET OUT. I DONT WANT ANYTHING." HONORED PT'S DIGNITY AND RIGHTS. WILL CONTINUE TO MONITOR AND REASSURE WE ARE DOING EVERYTHING POSSIBLE TO KEEP HER COMFORTABLE. PT STATED "I AM COMFORTABLE."
--- NOTE | 2019-02-05 09:30 | NUR ---
MS RN NOTES-- CALLED OR TO CONFIRM SCHEDULED SURGERY AND STATED IT IS SCHEDULED FOR TOMORROW AT 10AM. NOTIFIED PT AND DTR AT BEDSIDE. BREAKFAST TRAY ORDERED.
[2019-02-05] MEDS: Magnesium 1GM/D5W 100ML PREMIX 100 ML IV SCH ×2 (10:57→11:48)
--- NOTE | 2019-02-05 11:00 | NUR ---
MS RN NOTES-- OFFERED PT TO PUT ON DRESSING TO LEFT FOOT. PT STATED SHE WANTS TO AIR IT OUT. INFORMED PT THAT DRESSING NEEDS TO BE PUT ON AND KEEP FOOT ELEVATED. PT WAS ADAMANT AND STATED "LATER."
--- NOTE | 2019-02-05 13:00 | NUR ---
MS RN NOTES-- CALLED PHARMACY, SPOKE W/ TAI RE: VANCO DOSE AND TO GO AHEAD AND ADMINISTER 1GM VANCO WITH VANCO TROUGH OF 13.
--- NOTE | 2019-02-05 13:34 | NUR ---
MS RN NOTES-- OFFERED PT TO PUT ON DRESSING TO LEFT FOOT. PT STATED "NOT NOW, LATER." WILL TRY AGAIN LATER.
[2019-02-05] MEDS ORDERED: HYDROMORPHONE INJ 0.5 MG/0.5 ML SYRINGE IV PRN (14:00)
[2019-02-05] MEDS ORDERED: *INSULIN REGULAR(HUMULIN R)HUM 100 UNIT/ML VIAL SQ PRN (14:00)
[2019-02-05] MEDS ORDERED: DEXTROSE 50%-WATER 50 ML DISP.SYRIN IV PRN (14:00)
[2019-02-05 16:00] VITALS: BP 115/43
--- NOTE | 2019-02-05 16:10 | NUR ---
MS RN NOTES-- ATTEMPTED TO PUT ON DRESSING TO LEFT FOOT. PT STATED "LATER" REMINDED PT THAT DRESSING NEEDS TO BE PUT ON. PT STATED "IN A LITTLE BIT."
[2019-02-05] MEDS: RIVAROXABAN 10 MG TABLET PO SCH (16:33)
[2019-02-05] MEDS: BLOOD SUGAR DIAGNOSTIC 1 EACH STRIP VI SCH ×2 (16:37→22:34)
[2019-02-05] MEDS: INSULIN REGULAR, HUMAN 100 UNIT/ML 3 ML VIAL SQ PRN (16:38)
--- NOTE | 2019-02-05 17:00 | NUR ---
MS RN NOTES-- OFFERED PT TO PUT ON DRESSING TO LEFT FOOT. PT STATED "AFTER DINNER." WILL TRY AGAIN LATER. DRESSINGS PLACED AT BEDSIDE TABLE.
--- NOTE | 2019-02-05 18:40 | NUR ---
MS RN NOTES-- WENT BACK TO PT AND ASKED TO PUT DRESSING ON TO LEFT FOOT. PT STATED "NOT YET, COME BACK."
--- NOTE | 2019-02-05 18:58 | NUR ---
MS RN CLOSING NOTES ALL DUE MEDS GIVEN, NEEDS MET AND ANTICIPATED. PT IS A/O X4, AFEBRILE. RESPIRATIONS ARE EVEN AND UNLABORED, NOT IN ANY ACUTE DISTRESS NOTED. NO FACIAL GRIMACING OR MOANING NOTED. NO SOB OR C/O N/V. PICC LINE NOTED TO HARSHA INTACT, NO INFILTRATION NOTED. DRESSING KEPT CLEAN AND DRY. IV FLUIDS RUNNING AT 75ML/HR, TOLERATING WELL. SAFETY MEASURES ARE IN PLACE. REMINDED PT TO USE CALL LIGHT WHEN ASSISTANCE IS NEEDED, CALL LIGHT IS LEFT WITHIN REACH. WILL CONTINUE TO MONITOR THROUGHOUT SHIFT FOR CONTINUITY OF CARE.
--- NOTE | 2019-02-05 19:00 | NUR ---
MS RN OPENING NOTES Received patient awake, A/O x4, sitting on bed. Denies discomfort at this time. L foot wound without dressing per patient's preference. Encourage patient to apply dressing on the wound, pt agreed. with FC in place with clear yellow urine output noted. On fall precaution, call light within easy reach. Will continue to monitor accordingly.
--- NOTE | 2019-02-05 20:00 | NUR ---
MS RN NOTES Patient declined wound dressing at this time. Explained to patient the benefits of the procedure and the risks of refusing the dressing, patient verbalized understanding but insisted to refused dressing.
[2019-02-05 20:48] VITALS: BP 124/63
[2019-02-05] MEDS: INSULIN GLARGINE, 100 UNIT/ML CARTRIDGE SQ SCH (22:00)
--- NOTE | 2019-02-05 22:34 | NUR ---
MS RN NOTES BS - 210mg/dl. Patient refused Insulin at this time due to NPO status. Will continue to monitor accordingly.
[2019-02-06] MEDS: VANCOMYCIN 1 GM in IV D5W 250 ML IV SCH ×2 (01:19→13:28)
[2019-02-06] MEDS: IV NS 0.9% 1,000 ML IV PRN (06:11)
--- NOTE | 2019-02-06 06:31 | NUR ---
MS RN CLOSING NOTES Patient awake on bed, on RA, no SOB/respiratory distress noted. Medicated for pain, noted effective. On NPO since midnight, for L foot wound debridement today. Consent and pre-op checklist ready in the chart. No new complaints made. Medications given as order, no ASE. Endorsed to the next shift.
[2019-02-06] MEDS: PANTOPRAZOLE 40 MG TABLET.DR PO SCH (07:30)
[2019-02-06] MEDS: BLOOD SUGAR DIAGNOSTIC 1 EACH STRIP VI SCH ×4 (07:30→21:42)
--- NOTE | 2019-02-06 07:43 | NUR ---
MS RN OPENING NOTES Received patient awake in bed awaiting wound debridment. A/O x 4, no sob or acute distress noted. L foot wound without dressing per patient's preference. FC in place with clear yellow urine output noted. david picc line intact and patent infusing 75ml/hr. On fall precaution, safety measures in place, call light within easy reach. Will continue to monitor.
[2019-02-06 08:00] VITALS: BP 113/64
[2019-02-06] MEDS ORDERED: BUPIVACAINE 0.5 % PF 150 MG/30 ML VIAL ONE (08:23)
[2019-02-06] MEDS ORDERED: BUPIVACAINE MPF 0.5% W/EPI INJ 30 ML VIAL ONE (08:26)
[2019-02-06 08:34] LABS: CALCIUM, SERUM 8.1 mg/dL (8.5-10.1); CREATININE 0.8 mg/dL (0.6-1.3); MAGNESIUM 1.8 mg/dL (1.8-2.4)
[2019-02-06 08:35] LABS: HEMATOCRIT 27 % (33-45); HEMOGLOBIN 9.1 g/dL (11.5-14.8); MEAN CORPUSCULAR HGB CONC 34 g/dl (31.0-36.0); MEAN CORPUSCULAR VOLUME 85 fL (82-100); PLATELET COUNT (AUTO) 226 /CMM (150-450); RED BLOOD CELL COUNT(AUTO) 3.17 MIL/uL (4.0-5.2); WHITE BLOOD COUNT (AUTO) 5.6 K/uL (4.3-11.0)
[2019-02-06 08:36] LABS: BASOPHILS % (AUTO) 0.3 % (0.0-2.0); EOSINOPHILS % (AUTO) 3.6 % (0.0-6.0); LYMPHOCYTES # (AUTO) 1.6 /CMM (0.8-4.8); MONOCYTES # (AUTO) 0.4 /CMM (0.1-1.30); MONOCYTES % (AUTO) 7.2 % (2.0-12.0); NEUTROPHILS # (AUTO) 3.4 /CMM (1.8-8.9); NEUTROPHILS % (AUTO) 59.9 % (43.0-81.0)
[2019-02-06] MEDS: ASCORBIC ACID 500 MG TABLET PO SCH (09:00)
[2019-02-06] MEDS: LACTOBACILLUS RHAMNOSUS GG 1 EACH CAP.SPRINK PO SCH ×2 (09:00→17:50)
[2019-02-06] MEDS: PROSOURCE / PROSTAT (PYXIS) 30 ML UDC PO SCH ×3 (09:00→17:48)
[2019-02-06] MEDS: DOCUSATE SODIUM 100 MG CAPSULE PO SCH (09:00)
[2019-02-06] MEDS: MULTIVIT W/MINERALS 1 TAB TABLET PO SCH (09:00)
[2019-02-06] MEDS ORDERED: FENTANYL PF 100MCG/2ML AMPUL ONE (10:15)
[2019-02-06] MEDS ORDERED: ANESTHESIA TRAY IN PYXIS 1 EA TRAY MC ONE (10:16)
[2019-02-06] MEDS ORDERED: CELLULOSE,OXIDIZED 1 EACH EACH MC ONE (10:43)
--- NOTE | 2019-02-06 12:58 | NUR ---
MS RN NOTE PATIENT RETURNED FROM WOUND DEBRIDMENT. NO COMPLICATIONS REPORTED. PATIENT ALERT AN COMFORTABLE. MD CANCELLED NPO ORDER. LUNCH ORDERED. BLOOD SUGAR 142. PATIENT REFUSED INSULIN COVERAGE.
[2019-02-06] MEDS ORDERED: PROSOURCE / PROSTAT (PYXIS) 30 ML UDC PO SCH (13:00)
[2019-02-06] MEDS: HYDROCODONE/APAP 5/325MG 1 EACH TABLET PO PRN (13:28)
[2019-02-06 16:00] VITALS: BP 113/58
[2019-02-06] MEDS: RIVAROXABAN 10 MG TABLET PO SCH (17:50)
[2019-02-06] MEDS: INSULIN REGULAR, HUMAN 100 UNIT/ML 3 ML VIAL SQ PRN ×2 (18:21→21:55)
--- NOTE | 2019-02-06 19:30 | NUR ---
RECEIVED PATIENT IN BED AWAKE; AO X 3, ABLE TO MAKE NEEDS KNOWN. NO ACUTE DISTRESS NOTED. DENIES ANY PAIN AT THIS TIME. JUAN PICC LINE PATENT, INTACT; IVF INFUSING ORDERED. LEFT FOOT WOUND VAC ONGOING AT 125mmHg; DRESSING INTACT. BOWSER CATH PATENT, INTACT; DRAINING CLEAR YELLOW URINE. SAFETY REMINDERS GIVEN. ON LOW BED WITH BILATERAL UPPER SIDE RAILS UP. CALL STEPHEN WITHIN EASY REACH. WILL CONTINUE TO MONITOR.
[2019-02-06 20:00] VITALS: BP 117/67
--- NOTE | 2019-02-06 20:16 | NUR ---
MS RN CLOSING NOTES Patient awake on bed, on RA, no SOB/respiratory distress noted. on room air. L foot wound debridement completed today. No new complaints made. Medications given as ordered, no ASE. Care endorsed to the next shift.
[2019-02-06] MEDS: INSULIN GLARGINE, 100 UNIT/ML CARTRIDGE SQ SCH (21:44)
[2019-02-07] MEDS: VANCOMYCIN 1 GM in IV D5W 250 ML IV SCH ×2 (01:58→12:07)
[2019-02-07] MEDS: IV NS 0.9% 1,000 ML IV PRN ×2 (02:07→18:19)
[2019-02-07 04:00] VITALS: BP 125/73
--- NOTE | 2019-02-07 06:24 | NUR ---
PATIENT AWAKE IN BED. RESPIRATIONS EVEN. DENIES ANY PAIN AT THIS TIME. NO SYMPTOMS OF HYPER/HYPOGLYCEMIA. WOUND VAC ONGOING AT 125 mmHg WITH VERY SCANT SEROSANGUINOUS OUTPUT; CANNOT BE MEASURED. DUE MED GIVEN WITH NO ASE NOTED. IVF INFUSING ORDERED. NEEDS ATTENDED. KEPT CLEAN, DRY, AND COMFORTABLE. SAFETY PRECAUTIONS AND COMFORT MEASURES IN PLACE. WILL GIVE REPORT TO DAY SHIFT FOR CONTINUITY OF CARE.
[2019-02-07 06:44] LABS: CALCIUM, SERUM 8.2 mg/dL (8.5-10.1); CREATININE 0.8 mg/dL (0.6-1.3); POTASSIUM 4.3 mmol/L (3.5-5.1)
[2019-02-07 06:47] LABS: BASOPHILS % (AUTO) 0.5 % (0.0-2.0); HEMATOCRIT 29 % (33-45); HEMOGLOBIN 9.8 g/dL (11.5-14.8); LYMPHOCYTES # (AUTO) 1.7 /CMM (0.8-4.8); LYMPHOCYTES % (AUTO) 27.6 % (20.0-44.0); MEAN CORPUSCULAR HGB CONC 34 g/dl (31.0-36.0); MEAN CORPUSCULAR VOLUME 85 fL (82-100); MONOCYTES # (AUTO) 0.4 /CMM (0.1-1.30); NEUTROPHILS # (AUTO) 3.8 /CMM (1.8-8.9); NEUTROPHILS % (AUTO) 61.9 % (43.0-81.0); PLATELET COUNT (AUTO) 247 /CMM (150-450); RED BLOOD CELL COUNT(AUTO) 3.35 MIL/uL (4.0-5.2); WHITE BLOOD COUNT (AUTO) 6.1 K/uL (4.3-11.0)
[2019-02-07] MEDS: PANTOPRAZOLE 40 MG TABLET.DR PO SCH (07:45)
[2019-02-07] MEDS: BLOOD SUGAR DIAGNOSTIC 1 EACH STRIP VI SCH ×4 (07:45→21:48)
[2019-02-07 08:00] VITALS: BP 145/73
--- NOTE | 2019-02-07 08:44 | NUR ---
MS RN OPENING NOTES Received patient awake in bed post wound debridment on 02/06. A/O x 4, no sob or acute distress noted. L foot wound vac in place and running. FC in place with clear yellow urine output noted. david picc line intact and patent infusing 75ml/hr. On fall precaution, safety measures in place, call light within easy reach. Will continue to monitor.
[2019-02-07] MEDS: ASCORBIC ACID 500 MG TABLET PO SCH (08:53)
[2019-02-07] MEDS: MULTIVIT W/MINERALS 1 TAB TABLET PO SCH ×2 (08:53→09:00)
[2019-02-07] MEDS: LACTOBACILLUS RHAMNOSUS GG 1 EACH CAP.SPRINK PO SCH ×2 (08:53→17:27)
[2019-02-07] MEDS: DOCUSATE SODIUM 100 MG CAPSULE PO SCH ×2 (08:53→09:00)
[2019-02-07] MEDS: PROSOURCE / PROSTAT (PYXIS) 30 ML UDC PO SCH ×2 (08:54→17:29)
[2019-02-07] MEDS: HYDROCODONE/APAP 5/325MG 1 EACH TABLET PO PRN ×2 (11:56→22:09)
[2019-02-07] MEDS: INSULIN REGULAR, HUMAN 100 UNIT/ML 3 ML VIAL SQ PRN (12:08)
--- NOTE | 2019-02-07 12:35 | NUR ---
MS RN NOTE 0730 ACCUCHECK COMPLETED. BLOOD SUGAR 146. PATIENT REFUSED INSULIN. 1200 ACCUCHECK COMPLETED. INSULIN COVERAGE GIVEN PER PROTOCOL. NO S/S OF HYPER/HYPOGLYCEMIA NOTED.
[2019-02-07 16:00] VITALS: BP 125/66
[2019-02-07] MEDS: RIVAROXABAN 10 MG TABLET PO SCH (17:28)
--- NOTE | 2019-02-07 19:00 | NUR ---
RN MS OPENING NOTES RECEIVED PATIENT IN BED AWAKE ALERT AND ORIENTED X3, RESPIRATIONS EVEN AND UNLABORED WITH EQUAL RISE AND FALL OF CHEST , AT THIS TIME DENIES ANY PAIN AND STATES DOES NOT NEED PAIN MEDICATION AT THIS TIME , STATES SHE WILL ASK IF NEEDED, RIGHT UPPER ARM PICC LINE, INTACT AND PATENT, DRESSING IS C/D/I, NO REDNESS NO INFILTRATION PRESENT, IVF RUNNING ORDERED, BOWSER CATHETER INTACT AND DRAINING WELL URINE IS CLEAR YELLOW, WOUND VAC IS INTACT AND DRAINING WELL NO LEAKS PRESENT, SEROSANGUINEOUS DRAINAGE NOTED, SITE FLOATED AND ELEVATED, ORIENTED TO STAFF AND CALL LIGHT AND KEPT WITHIN REACH, SAFETY PRECAUTIONS IN PLACE, LOW BED AND LOCKED, BED ALARM IN PLACE, FLUIDS OFFERED, REPOSITIONING OFFERED, ALL NEEDS ATTENDED AT THIS TIME, WILL CONTINUE TO MONITOR AND ADDRESS NEEDS, AT THIS TIME REMAINS STABLE AND COMFORTABLE.
--- NOTE | 2019-02-07 19:43 | NUR ---
MS RN CLOSING NOTES patient awake in bed post wound debridment on 02/06. A/O x 4, no sob or acute distress noted. L foot wound vac in place and running. FC in place with clear yellow urine output noted. david picc line intact and patent infusing 75ml/hr. On fall precaution, safety measures in place, call light within easy reach. Care endorsed to wire winding machine operator rn.
[2019-02-07 20:00] VITALS: BP 109/54
[2019-02-07] MEDS: INSULIN GLARGINE, 100 UNIT/ML CARTRIDGE SQ SCH (21:42)
--- NOTE | 2019-02-07 21:50 | NUR ---
RN MS NOTES PATIENT ACCUCHECK 233 DESPITE EDUCATION RISK AND BENEFITS PROVIDED PATIENT REFUSED REGULAR INSULIN X3 STATES " IM NOT TAKING BOTH", ONLY AGREED TO TAKE LANTUS AT THIS TIME. LANTUS ORDERED GIVEN.
--- NOTE | 2019-02-07 22:09 | NUR ---
PHOEBE MS NOTES PATIENT COMPLAIN OF PAIN TO LEFT FOOT 06/20 NOTED WITH MOSHEN, REQUESTED FOR PAIN MEDICATION NORCO OFFERED PATIENT AGREED TO TAKE PRN NORCO GIVEN ORDERED, VS WNL, WILL CONTINUE TO MONITOR FOR EFFECTIVENESS. LEFT FOOT REPOSITIONED AND OFFLOADED. WOUND VAC INTACT WITH PROPER SUCTION DRESSING IS CLEAN, DRY AND INTACT. Addendum: 02/08/19 at 0108 by POONAM VELASQUEZ RN NORCO 5/325MG GIVEN DUE TO PATIENT STATING "SHE DOESN'T LIKE TO TAKE HARD MEDICATION PREFERS TYLENOL BUT I WANT A NORCO AT THIS TIME" NORCO 5/325 MG OFFERED AT THIS TIME.
[2019-02-08] MEDS: VANCOMYCIN 1 GM in IV D5W 250 ML IV SCH ×2 (00:03→14:28)
[2019-02-08 04:00] VITALS: BP 122/58
--- NOTE | 2019-02-08 06:49 | NUR ---
RN MS CLOSING NOTES PATIENT IN BED AWAKE ALERT AND ORIENTED X3, RESPIRATIONS EVEN AND UNLABORED WITH EQUAL RISE AND FALL OF CHEST , AT THIS TIME DENIES ANY PAIN , RIGHT UPPER ARM PICC LINE, INTACT AND PATENT, DRESSING IS C/D/I, NO REDNESS NO INFILTRATION PRESENT, IVF RUNNING ORDERED, BOWSER CATHETER INTACT AND DRAINING WELL URINE IS CLEAR YELLOW, WOUND VAC IS INTACT AND DRAINING WELL NO LEAKS PRESENT, SEROSANGUINEOUS DRAINAGE NOTED, SITE REMAINS FLOATED AND ELEVATED, SACRAL INTACT APPLIED BARRIER CREAM FOR SKIN MANAGEMENT AND PROTECTION ,CALL LIGHT KEPT WITHIN REACH, SAFETY PRECAUTIONS IN PLACE, LOW BED AND LOCKED, BED ALARM IN PLACE, FLUIDS OFFERED, REPOSITIONING OFFERED, ALL NEEDS ATTENDED THROUGHOUT SHIFT, NO CHANGE OF CONDITION WILL CONTINUE TO MONITOR AND ADDRESS NEEDS, AT THIS TIME REMAINS STABLE AND COMFORTABLE WILL ENDORSE TO NEXT SHIFT, PATIENT REFUSED REGULAR INSULIN.
--- NOTE | 2019-02-08 07:15 | NUR ---
MS RN OPENING NOTE RECEIVED PATIENT A/OX4, NO ACUTE DISTRESS OR SOB. L FOOT DRESSING INTACT, WOUND VAC CONNECTED AND DRAINING PER MD ORDER. SENSATION AND MOTION INTACT. BOWSER DRAINING YELLOW CLEAR URINE. JUAN PICC LINE DRESSING C/D/I, INFUSING NS @75mL/HR. BED LOCKED, LOW, SIDE RAILS UPX2, BED ALARM ON, CALL LIGHT WITHIN REACH. PATIENT ABLE TO MAKE NEEDS KNOWN. WILL CONTINUE TO MONITOR
[2019-02-08 07:47] LABS: CALCIUM, SERUM 8.6 mg/dL (8.5-10.1); CREATININE 0.7 mg/dL (0.6-1.3); POTASSIUM 4.1 mmol/L (3.5-5.1)
[2019-02-08 07:57] LABS: BASOPHILS % (AUTO) 0.4 % (0.0-2.0); EOSINOPHILS % (AUTO) 3.6 % (0.0-6.0); HEMATOCRIT 28 % (33-45); HEMOGLOBIN 9.4 g/dL (11.5-14.8); LYMPHOCYTES # (AUTO) 1.6 /CMM (0.8-4.8); LYMPHOCYTES % (AUTO) 32.7 % (20.0-44.0); MEAN CORPUSCULAR HGB CONC 34 g/dl (31.0-36.0); MEAN CORPUSCULAR VOLUME 85 fL (82-100); MONOCYTES # (AUTO) 0.4 /CMM (0.1-1.30); MONOCYTES % (AUTO) 8.7 % (2.0-12.0); NEUTROPHILS # (AUTO) 2.8 /CMM (1.8-8.9); NEUTROPHILS % (AUTO) 54.6 % (43.0-81.0); PLATELET COUNT (AUTO) 161 /CMM (150-450); RED BLOOD CELL COUNT(AUTO) 3.23 MIL/uL (4.0-5.2)
[2019-02-08 08:00] VITALS: BP 140/73
[2019-02-08] MEDS: MULTIVIT W/MINERALS 1 TAB TABLET PO SCH (09:00)
[2019-02-08] MEDS: DOCUSATE SODIUM 100 MG CAPSULE PO SCH (09:00)
[2019-02-08] MEDS: PROSOURCE / PROSTAT (PYXIS) 30 ML UDC PO SCH (09:22)
[2019-02-08] MEDS: BLOOD SUGAR DIAGNOSTIC 1 EACH STRIP VI SCH ×2 (09:22→12:38)
[2019-02-08] MEDS: ASCORBIC ACID 500 MG TABLET PO SCH (09:22)
[2019-02-08] MEDS: LACTOBACILLUS RHAMNOSUS GG 1 EACH CAP.SPRINK PO SCH (09:22)
[2019-02-08] MEDS: PANTOPRAZOLE 40 MG TABLET.DR PO SCH (09:22)
[2019-02-08] MEDS: IV NS 0.9% 1,000 ML IV PRN (09:35)
[2019-02-08 10:29] VITALS: BP 140/73
[2019-02-08] MEDS: INSULIN REGULAR, HUMAN 100 UNIT/ML 3 ML VIAL SQ PRN (12:39)
[2019-02-08] MEDS ORDERED: VANC1PLA10 IV (13:21)
--- NOTE | 2019-02-08 14:23 | NUR ---
DR LUQUE D/C'D WOUND VAC, CHANGED DRESSING, PICTURES TAKEN.
--- NOTE | 2019-02-08 16:30 | NUR ---
PHOEBE D/C NOTE AMBULANCE PERSONNEL AT BEDSIDE. REPORT GIVEN TO RODRIGO SANDHU AT [facility]. D/C EDUCATION PROVIDED. BELONGINGS LIST SIGNED. PATIENT IN STABLE CONDITION. PER CASE MANAGEMENT, NO WOUND VAC AT [facility]. DR JACOBSON TO FOLLOW UP Addendum: 02/08/19 at 1732 by COREEN GANDHI RN PICTURES TAKEN, PLACED IN CHART
== END 2019-02-08 15:55 | DRG 982 ==
LOC: ER 09:31 → MEDSG1 11:40
PROVIDERS: ADMIT Registered Nurse; ATTEND Nurse Practitioner Acute Care
PROC: 0KBW0ZZ Excision of Left Foot Muscle, Open Approach (ICD-10-PCS; principal; 2019-02-06)
DX: E11.621 Type 2 diabetes mellitus with foot ulcer (principal); E44.0 Moderate protein-calorie malnutrition; L97.229 Non-pressure chronic ulcer of left calf with unspecified severity; L03.119 Cellulitis of unspecified part of limb; L03.116 Cellulitis of left lower limb; M86.9 Osteomyelitis, unspecified; N17.0 Acute kidney failure with tubular necrosis; I50.9 Heart failure, unspecified; I11.0 Hypertensive heart disease with heart failure; I48.91 Unspecified atrial fibrillation; I25.2 Old myocardial infarction; K21.9 Gastro-esophageal reflux disease without esophagitis; L97.529 Non-pressure chronic ulcer of other part of left foot with unspecified severity; E11.42 Type 2 diabetes mellitus with diabetic polyneuropathy; Z87.440 Personal history of urinary (tract) infections; D63.8 Anemia in other chronic diseases classified elsewhere; E11.622 Type 2 diabetes mellitus with other skin ulcer; Z86.718 Personal history of other venous thrombosis and embolism; Z79.01 Long term (current) use of anticoagulants; E66.01 Morbid (severe) obesity due to excess calories; Z68.39 Body mass index [BMI] 39.0-39.9, adult; Z88.0 Allergy status to penicillin; E11.69 Type 2 diabetes mellitus with other specified complication; E86.0 Dehydration; E88.09 Other disorders of plasma-protein metabolism, not elsewhere classified
CPT/HCPCS: 36415; 71045-TC; 80048-TC; 80061-TC; 80076-TC; 80202-TC; 82962-TC; 83605-TC; 83735-TC; 84100-TC; 84443-TC; 84484-TC; 85025-TC; 85730-TC; 87040-TC; 87070-TC; 87081-TC; A6253; A6402; A6403; G0378; J1170; J1815; J2704; J3010; J3370; J3475; J3490; J7030; J7060

== ENCOUNTER 2019-08-06 08:46 | Inpatient (IN) | payer MEDICARE ==
[~2019-08-06] VITALS: Ht 165.1 cm; Wt 114.8 kg
[~2019-08-06 08:46] MED LIST changes: +ACET-73 PO; -ACET1TAB12 PO; +AMIN30LI2 PO; +ASCO500T87 PO; +BISA10SU61 RC; -CEFT1FRO2 IV; +CRAN450C PO; +DOCU-141 PO; +GLIP10TA3 PO; -GLIP5TAB13 PO; +HYDR-3974 PO; +INSU100V27 SQ; +INSU100V7 SQ; -LACT1CAP72 PO; +MAG30ORA PO; +MAG355OR18 PO; +MAGN400O6 PO; -METF-440 PO; +MULT-213 PO; +NA P133E RC; -NITR0.4T48 SL; +PANT40TA2 PO; -RANI150C4 PO; +SACC250C PO; -SODI480S2 TOP; +VANC1PLA10 IV
--- NOTE | 2019-08-06 08:50 | NUR ---
pt carmelo from home. pt lives w/ son on a 2 bedroom apartment. per report pt slipped and fall while going to the bathroom. pt staters been having diarrhea for more than a week now. pt also c/o ble edema and is leaking making her uncomfortable. denies any pain. gowned and placed on monitor. vss. awaiting md silverman.
[2019-08-06] MEDS ORDERED: IV NS 0.9% 500 ML BAG IV ONE (09:00)
--- NOTE | 2019-08-06 09:01 | NUR ---
dr bolden at bedside for eval.
--- NOTE | 2019-08-06 09:12 | NUR ---
iv line started blood drawn and sent to lab.
[2019-08-06 09:21] LABS: BASOPHILS % (AUTO) 0.5 % (0.0-2.0); EOSINOPHILS % (AUTO) 0.5 % (0.0-6.0); HEMATOCRIT 35 % (33-45); HEMOGLOBIN 11.2 g/dL (11.5-14.8); LYMPHOCYTES % (AUTO) 12.4 % (20.0-44.0); MEAN CORPUSCULAR HGB CONC 32 g/dl (31.0-36.0); MEAN CORPUSCULAR VOLUME 86 fL (82-100); MONOCYTES # (AUTO) 0.5 /CMM (0.1-1.30); MONOCYTES % (AUTO) 6.2 % (2.0-12.0); NEUTROPHILS # (AUTO) 6.6 /CMM (1.8-8.9); NEUTROPHILS % (AUTO) 80.4 % (43.0-81.0); PLATELET COUNT (AUTO) 321 /CMM (150-450); RED BLOOD CELL COUNT(AUTO) 4.03 MIL/uL (4.0-5.2); WHITE BLOOD COUNT (AUTO) 8.2 K/uL (4.3-11.0)
[2019-08-06 09:35] LABS: ALANINE AMINOTRANSFERASE 23 U/L (12-78); ALBUMIN 2.5 g/dL (3.4-5.0); ALKALINE PHOSPHATASE 116 U/L (46-116); ASPARTATE AMINOTRANSFERASE 20 U/L (15-37); BILIRUBIN,DIRECT 0.1 mg/dL (0.0-0.2); BILIRUBIN,TOTAL 0.3 mg/dL (0.2-1.0); CALCIUM, SERUM 9.5 mg/dL (8.5-10.1); CARBON DIOXIDE 22 mmol/L (21-32); CHLORIDE 91 mmol/L (98-107); CREATININE 1.7 mg/dL (0.6-1.3); POTASSIUM 6.1 mmol/L (3.5-5.1); SODIUM SERUM 125 mmol/L (136-145); TOTAL PROTEIN, SERUM 8.6 g/dL (6.4-8.2); UREA NITROGEN, BLOOD 58 mg/dL (7-18)
[2019-08-06 09:53] LABS: GLUCOSE 881 mg/dL (74-106)
[2019-08-06] MEDS ORDERED: INSULIN REGULAR, HUMAN 100 UNIT/ML 10 ML VIAL ONE (10:08)
--- NOTE | 2019-08-06 10:24 | NUR ---
PATIENT PROVIDED A BEDPAN. PATIENT HAD A SEMI FORMED STOOL. Addendum: 08/06/19 at 1043 by NERY UNABLE TO COLLECT STOOL FOR C.DIFF.
[2019-08-06] MEDS ORDERED: IV NS 0.9% 1,000 ML BAG IV ONE ×2 (10:30→23:30)
[2019-08-06] MEDS ORDERED: INSULIN REGULAR, HUMAN 100 UNIT/ML 10 ML VIAL IV ONE (10:30)
[2019-08-06] MEDS ORDERED: FURO-145 PO (10:38)
[2019-08-06] MEDS ORDERED: RANI150T8 PO (10:38)
[2019-08-06] MEDS ORDERED: METF-440 PO (10:38)
--- NOTE | 2019-08-06 10:43 | NUR ---
REPORT GIVEN TO RAYNE MARTÍNEZ RN.
--- NOTE | 2019-08-06 11:19 | NUR ---
TRANSFERRED TO ROOM 327-1 VIA ACLS PROTOCOL. NO DISTRESS NOTED.
[2019-08-06 11:20] VITALS: BP 100/60
--- NOTE | 2019-08-06 11:20 | NUR ---
QUALITY ASSURANCE MONITOR CHASSIS ADMITTING NOTES ADMITTED PT FROM ER WITH DX OF UNCONTROLLED DM.ALERT AND ORIENTED X3.ON BEDREST.ON TELE WITH NSR HR 79.NO SOB ON ROOM AIR.WITH MULTIPLE WOUNDS.WITH REDNESS ON SACRAL AND ABDOMINAL FOLD.WITH MULTIPLE WOUNDS ON BLE,RT PLANTAR FOOT,RT PROXIMAL FOOT,LT FOOT AND LT GREAT TOE. PT DENIES ANY PAIN OR DISTRESS.AFLOAT JANICE HEELS WITH PILLOWS.CALL LIGHT PLACED WITHIN REACH.
--- NOTE | 2019-08-06 11:20 | NUR ---
ADMITTED PT IN WITH ONGOING IVF OF NS 1 LITER BOLUS STILL 800 ML INFUSING.WILL INFUSE THE 1/2 NS 1 LITER SOON THE NS 1 LITER IS CONSUMED.
[2019-08-06 11:30] VITALS: BP 87/66
[2019-08-06] MEDS ORDERED: MAGNESIUM HYDROXIDE 30 ML UDC PO PRN (12:30)
[2019-08-06] MEDS ORDERED: MAG HYDROX/AL HYDROX/SIMETH 30 ML UDC PO PRN (12:30)
[2019-08-06] MEDS ORDERED: ONDANSETRON HCL/PF 4 MG/2 ML VIAL IVP PRN (12:30)
[2019-08-06] MEDS ORDERED: ZOLPIDEM TARTRATE 5 MG TABLET PO PRN (12:30)
[2019-08-06] MEDS ORDERED: DEXTROSE 50%-WATER 50 ML DISP.SYRIN IV PRN (12:30)
[2019-08-06] MEDS: INSULIN REGULAR, HUMAN 100 UNIT/ML 3 ML VIAL SQ PRN ×2 (13:26→17:20)
[2019-08-06] MEDS: BLOOD SUGAR DIAGNOSTIC 1 EACH STRIP IN SCH ×3 (13:27→22:08)
[2019-08-06] MEDS: IV 1/2NS 1000 ML 1,000 ML IV PRN (13:55)
--- NOTE | 2019-08-06 14:30 | NUR ---
UNABLE TO TAKE WOUND PHOTOS AND MEASURE THEM PROPERLY DUE TO PT BEING UNCOOPERATIVE AND IMPATIENT IN BEING TURNED INSPITE OF EXPLAINING THE IMPORTANCE OF BEING TURNED AND REPOSITIONED EVERY TWO HRS AND MEASURING THE WOUNDS TO SEE THE PROGRESS OF WOUND HEALING.
--- NOTE | 2019-08-06 14:54 | NUR ---
RN NOTES RECEIVED CALL FROM CREDIT RISK MANAGEMENT DIRECTOR MATTY THAT PT HAS HIGH LACTIC LEVEL 5.6. INFORMED RN RAYNE MARTÍNEZ WHO IS ASSIGNED TO PT THIS TOUR.
--- NOTE | 2019-08-06 15:30 | NUR ---
NOTIFIED DR RAMOS OF PT'S HIGH LACTIC LEVEL OF 5.6 WITH ORDERS TO DO STAT BMP AND CARRIED OUT.PT IS ON IVF NS AND 1.5 LITERS OF NS ADMINISTERED.
[2019-08-06] MEDS: ACETAMINOPHEN 325 MG TABLET PO PRN (15:44)
[2019-08-06 16:00] VITALS: BP 102/54
[2019-08-06] MEDS ORDERED: FEE PK DOSING 1 MIN EA MC ONE (16:03)
[2019-08-06 16:12] LABS: CALCIUM, SERUM 8.7 mg/dL (8.5-10.1); CREATININE 1.5 mg/dL (0.6-1.3); POTASSIUM 4.7 mmol/L (3.5-5.1)
[2019-08-06] MEDS: NYSTATIN TOP POWDER 15 GM BOTTLE TP SCH ×2 (17:06→17:09)
[2019-08-06] MEDS: MEROPENEM 1 G in IV NS 0.9% 100 ML IV SCH (17:07)
[2019-08-06] MEDS: Z GUARD REMEDY 2 OZ OINT TP SCH ×2 (17:07→21:00)
[2019-08-06] MEDS: Z GUARD REMEDY 2 OZ OINT TP PRN ×2 (17:07→22:07)
[2019-08-06] MEDS: VANCOMYCIN 1 GM in IV D5W 250ml IV SCH (17:55)
--- NOTE | 2019-08-06 17:57 | NUR ---
PT ATE 90%OF DINNER AND WAS SEEN EATING BAG OF CHIPS BROUGHT BY FAMILY FROM HOME.PT/FAMILY TEACHING DONE REGARDING DIABETIC MEALS AND HYPERGLYCEMIA S/S.PT INSISTS TO FINISH THE CHIPS INSPITE OF EXPLAINING THE RISKS AND BENEFITS.
--- NOTE | 2019-08-06 19:10 | NUR ---
QUALITY ASSURANCE MONITOR FINAL OPENING NOTES RECEIVED PATIENT IN BED AWAKE ALERT AND ORIENTED X2, RESPIRATIONS EVEN AND UNLABORED WITH EQUAL RISE AND FALL OF CHEST, DENIES ANY PAIN OR DISCOMFORT AT THIS TIME,IV SITE TO RIGHT HAND#20 G INTACT AND PATENT, NO REDNESS, NO INFILTRATION PRESENT, IVF RUNNING ORDERED, ,ORIENTED TO STAFF AND CALL LIGHT AND KEPT WITHIN REACH,SAFETY PRECAUTIONS IN PLACE, LOW BED AND LOCKED, ALL NEEDS ATTENDED AT THIS TIME WILL CONTINUE TO MONITOR AND ATTEND TO NEEDS.
[2019-08-06 20:00] VITALS: BP_SYST 97; BP_SYST 99; BP_DIAS 57; BP_DIAS 58
--- NOTE | 2019-08-06 20:51 | NUR ---
PRELIMINARY FINDINGS OF LOWER EXTREMITY VENOUS U/S SHOWED POSITIVE FOR DVT AT RIGHT POP VEIN. ADVISED ATTENDING RN.
--- NOTE | 2019-08-06 21:00 | NUR ---
RN MS NOTES ASKED PATIENT IF I COULD TAKE WOUND PHOTOS OF RIGHT PLANTAR DISTAL FOOT AND RIGHT PLANTER PROXIMAL FOOT AND LEFT GREAT TOE, PATIENT REFUSED, PATIENT ALSO REFUSED WOUND CULTURES, STATED " THEY CAN BE DONE TOMORROW DONT REMOVE THE DRESSING" WILL CONTINUE TO MONITOR AND ENDORSE TO NEXT SHIFT.
--- NOTE | 2019-08-06 21:01 | NUR ---
ASSET ADMINISTRATOR NOTES RECEIVED REPORT FOR ARTERIAL VENOUS DOPPLER OF BLE, PATIENT IS POSITIVE FOR DVT OF RIGHT POPLITEAL SAGE. HOSPITALIST SHRADDHA FLORES MADE AWARE STATES HE WILL PLACE ORDER FOR XARELTO. WILL AWAIT MD ORDERS.
--- NOTE | 2019-08-06 21:06 | NUR ---
SWIMMING POOL INSTALLER NOTES RECEIVED CALL FROM FROM RADIOLOGY REGARDING RESULTS FOR DOPPLER POSITIVE FOR RIGHT POPLITEAL VEIN , URSULA HOGUE MADE AWARE RESULT REPORTED TO HOSPITALIST ANA
[2019-08-06] MEDS: RIVAROXABAN 15 MG TABLET PO SCH (22:08)
[2019-08-06] MEDS: *INSULIN REGULAR(HUMULIN R)HUM 100 UNIT/ML VIAL SQ PRN (22:17)
--- NOTE | 2019-08-06 22:30 | NUR ---
RN MS NOTES SHRADDHA FLORES MADE AWARE OF LACTIC ACID , WITH NEW ORDERS FOR 1L NS BOLUS, AND LACTIC ACID LAB WITH AM LABS.
[2019-08-07] VITALS: BP 127/73
[2019-08-07 00:41] VITALS: BP 127/73
[2019-08-07 04:00] VITALS: BP 112/59
[2019-08-07] MEDS: MEROPENEM 1 G in IV NS 0.9% 100 ML IV SCH ×2 (04:11→16:21)
[2019-08-07 05:53] VITALS: BP 112/57
[2019-08-07] MEDS: BLOOD SUGAR DIAGNOSTIC 1 EACH STRIP IN SCH ×4 (06:13→22:06)
[2019-08-07] MEDS: INSULIN REGULAR, HUMAN 100 UNIT/ML 3 ML VIAL SQ PRN ×3 (06:16→17:53)
[2019-08-07 06:36] LABS: BASOPHILS % (AUTO) 0.2 % (0.0-2.0); EOSINOPHILS % (AUTO) 1.8 % (0.0-6.0); HEMATOCRIT 29 % (33-45); LYMPHOCYTES % (AUTO) 10.1 % (20.0-44.0); MEAN CORPUSCULAR HGB CONC 34 g/dl (31.0-36.0); MEAN CORPUSCULAR VOLUME 83 fL (82-100); MONOCYTES # (AUTO) 0.8 /CMM (0.1-1.30); MONOCYTES % (AUTO) 7.4 % (2.0-12.0); NEUTROPHILS # (AUTO) 8.2 /CMM (1.8-8.9); NEUTROPHILS % (AUTO) 80.5 % (43.0-81.0); PLATELET COUNT (AUTO) 265 /CMM (150-450); RED BLOOD CELL COUNT(AUTO) 3.56 MIL/uL (4.0-5.2); WHITE BLOOD COUNT (AUTO) 10.2 K/uL (4.3-11.0)
--- NOTE | 2019-08-07 06:49 | NUR ---
CIVIL DIVISION COMMANDER DEPUTY SHERIFF CLOSING NOTES PATIENT IN BED AWAKE ALERT AND ORIENTED X2, RESPIRATIONS EVEN AND UNLABORED WITH EQUAL RISE AND FALL OF CHEST, DENIES ANY PAIN OR DISCOMFORT AT THIS TIME,IV SITE TO RIGHT HAND#20 G INTACT AND PATENT, NO REDNESS, NO INFILTRATION PRESENT, IVF RUNNING ORDERED, CALL LIGHT KEPT WITHIN REACH,SAFETY PRECAUTIONS IN PLACE, LOW BED AND LOCKED. ALL SCHEDULE MEDICATION GIVEN ORDERED. NO ADVERSE REACTIONS NOTED. REFUSED WOUND CULTURE AND WOUND CARE TO LOWER EXTREMITIES. EKG RESULTS RELAYED TO HOSPITALIST SADNRA, NO NEW ORDERS AT THIS TIME. ALL NEEDS ATTENDED AT THIS TIME WILL CONTINUE TO MONITOR AND ATTEND TO NEEDS. WILL ENDORSE TO NEXT SHIFT.
[2019-08-07 06:54] LABS: ALBUMIN 1.8 g/dL (3.4-5.0); BILIRUBIN,TOTAL 0.1 mg/dL (0.2-1.0); CALCIUM, SERUM 8.3 mg/dL (8.5-10.1); CREATININE 1.1 mg/dL (0.6-1.3); MAGNESIUM 2.4 mg/dL (1.8-2.4); PHOSPHORUS 2.7 mg/dL (2.5-4.9); POTASSIUM 5.1 mmol/L (3.5-5.1); TOTAL PROTEIN, SERUM 6.6 g/dL (6.4-8.2)
[2019-08-07 06:57] LABS: THYROID STIMULATING HORMONE 0.83 uIU/mL (0.358-3.74)
--- NOTE | 2019-08-07 07:30 | NUR ---
Tele/RN Opening note Patient received resting in bed, A/O x3, confused at times, reoriented to reality. Patient showing no signs of acute distress or SOB, saturating >95% on RA. Tele monitor SR 82. Iv line on the right hand is clean and patent and running at 75ml/hr. Bed is in lowest position, side rails x3 in upright position, call light is within reach and patient is aware of how to call for assistance when needed. Will continue with current plan of care.
[2019-08-07] MEDS: RIVAROXABAN 15 MG TABLET PO SCH ×2 (08:52→16:22)
[2019-08-07] MEDS: Z GUARD REMEDY 2 OZ OINT TP PRN (08:54)
[2019-08-07] MEDS: NYSTATIN TOP POWDER 15 GM BOTTLE TP SCH ×2 (08:54→16:23)
[2019-08-07] MEDS: THERAHONEY GEL 1.5 OZ TUBE TP SCH (08:55)
[2019-08-07] MEDS: SILVER SULFADIAZINE 50 GM JAR TP SCH (08:55)
[2019-08-07] MEDS: IV 1/2NS 1000 ML 1,000 ML IV PRN (08:58)
[2019-08-07] MEDS ORDERED: APIXABAN 2.5 MG TABLET PO SCH ×2 (09:00)
[2019-08-07] MEDS: Z GUARD REMEDY 2 OZ OINT TP SCH ×2 (09:02→21:58)
[2019-08-07 09:13] VITALS: BP 108/56
--- NOTE | 2019-08-07 10:42 | NUR ---
MS/RN diet change Per RD recommendation, diet changed to CCHO 60 with 2 grams sodium. Per Isai.
[2019-08-07] MEDS: VANCOMYCIN 1 GM in IV D5W 250ml IV SCH (12:44)
[2019-08-07] MEDS: LACTOBACILLUS RHAMNOSUS GG 1 EACH CAP.SPRINK PO SCH (16:22)
--- NOTE | 2019-08-07 19:06 | NUR ---
MS/RN closing note Patient is resting in bed, A/O x3, showing no signs of acute distress or SOB, saturating >95% on RA. IV line in the right hand #20 s/l is clean and patent. Skin care provided, patient kept cleean and dry. Wound care provided as per orders. All patient needs met, all due meds given. Bed is in lowest position, side rails x3 in upright position, call light is within reach and patient is aware of how to call for assistance when needed. WIll endorse to auto garage mechanic.
--- NOTE | 2019-08-07 19:15 | NUR ---
MS RN NOTE RECEIVED PT IN STABLE CONDITION A/O X3, CURRENTLY RESTING IN BED. NO SIGNS OF SOB OR DISTRESS, NO INDICATION OF PAIN OR N/V. IV IN R HAND #[address] ALL CURRENT NEEDS ATTENDED TO. BED LOW, LOCKED, UPPER RAILS UP, AND CALL LIGHT WITHIN REACH. WILL CONT. TO MONITOR.
[2019-08-07 20:00] VITALS: BP 99/58
[2019-08-07] MEDS: *INSULIN REGULAR(HUMULIN R)HUM 100 UNIT/ML VIAL SQ PRN (22:07)
[2019-08-07] MEDS: VANCOMYCIN 1 GM in IV D5W 250 ML IV SCH (23:32)
[2019-08-08] MEDS: MEROPENEM 1 G in IV NS 0.9% 100 ML IV SCH ×2 (04:05→16:33)
--- NOTE | 2019-08-08 05:30 | NUR ---
MS NURSE NOTE PT DIAPER AND LINEN CHANGED, PT REFUSING FOR WOUND DRESSINGS TO BE CHANGED AFTER MULTIPLE ATTEMPTS. WILL TRY AGAIN BEFORE END OF SHIFT.
[2019-08-08] MEDS: INSULIN REGULAR, HUMAN 100 UNIT/ML 3 ML VIAL SQ PRN ×3 (05:57→16:59)
--- NOTE | 2019-08-08 06:16 | NUR ---
MS RN NOTE PT IN STABLE CONDITION A/O X3, CURRENTLY RESTING IN BED. NO SIGNS OF SOB OR DISTRESS, NO INDICATION OF PAIN OR N/V. IV IN R HAND #[address] ALL CURRENT NEEDS ATTENDED TO. BED LOW, LOCKED, UPPER RAILS UP, AND CALL LIGHT WITHIN REACH. WILL CONT. TO MONITOR AND ENDORSE TO NEXT SHIFT FOR DAMARIS.
[2019-08-08] MEDS: BLOOD SUGAR DIAGNOSTIC 1 EACH STRIP IN SCH ×4 (06:41→21:25)
[2019-08-08 07:41] LABS: CALCIUM, SERUM 8.4 mg/dL (8.5-10.1)
[2019-08-08 08:00] VITALS: BP 130/79
[2019-08-08] MEDS: LACTOBACILLUS RHAMNOSUS GG 1 EACH CAP.SPRINK PO SCH ×2 (08:43→16:42)
[2019-08-08] MEDS: RIVAROXABAN 15 MG TABLET PO SCH ×2 (08:44→16:43)
[2019-08-08] MEDS: THERAHONEY GEL 1.5 OZ TUBE TP SCH (08:45)
[2019-08-08] MEDS: NYSTATIN TOP POWDER 15 GM BOTTLE TP SCH ×2 (08:46→16:45)
[2019-08-08] MEDS: Z GUARD REMEDY 2 OZ OINT TP PRN (08:46)
[2019-08-08] MEDS: Z GUARD REMEDY 2 OZ OINT TP SCH ×2 (08:49→21:17)
[2019-08-08] MEDS: SILVER SULFADIAZINE 50 GM JAR TP SCH (08:49)
[2019-08-08 09:00] VITALS: BP 130/79
--- NOTE | 2019-08-08 11:10 | NUR ---
PATIENT EDUCATED ABOUT IMPORTANCE TO BE COMPLIANT TO DIET AND MEDICATION. PATIENT VERBALIZED UNDERSTANDING
[2019-08-08] MEDS: VANCOMYCIN 1 GM in IV D5W 250 ML IV SCH (12:27)
[2019-08-08 16:00] VITALS: BP 120/78
--- NOTE | 2019-08-08 19:07 | NUR ---
Patient is resting in bed, A/O x3, no signs of acute distress or SOB, on RA. IV line in the right hand #20 s/l intact and patent. Patient kept clean and dry. Wound care provided as per orders. All patient needs met, all due meds given. Bed is in lowest position, side rails x3 in upright position, call light is within reach. WIll endorse to manager case management for DAMARIS.
--- NOTE | 2019-08-08 19:25 | NUR ---
MS/RN NOTES RECEIVED PT. LYING IN BED. PT. IS AWAKE, ALERT AND ORIENTED X3. BREATHING EVEN AND UNLABORED ON ROOM AIR. NO SOB, RESPIRATORY DISTRESS OR COMPLAINTS OF PAIN NOTED AT THIS TIME. PT. WITH RIGHT HAND 20 GAUGE PERIPHERAL IV PRESENT, PATENT AND INTACT ADMINISTERING TO PT. 1/2 NS @ 75 ML/HR. BED LOCKED AND IN LOWEST POSITION, SIDE RAILS UP X3, BED ALARM ON, CALL LIGHT WITHIN REACH, WILL CONTINUE TO MONITOR.
[2019-08-08 20:00] VITALS: BP 135/64
[2019-08-08] MEDS: *INSULIN REGULAR(HUMULIN R)HUM 100 UNIT/ML VIAL SQ PRN (21:26)
--- NOTE | 2019-08-08 21:44 | NUR ---
MS/RN NOTES NOTIFIED EPIC DECORATIVE GREENS CUTTER PT. WITH BLOOD SUGAR OF 515MG/DL ON REPEAT. ADMINISTERED TO PT. 10 UNITS OF REGULAR INSULIN PER SLIDING SCALE AND 30 UNITS OF LANTUS ORDERED. PT. WAS LETHARGIC BUT IS NOW AWAKE AND ALERT. PER FRAME POLISHER SANDRA "I WILL ADJUST INSULIN DOSES". WILL CONTINUE TO MONITOR.
[2019-08-08] MEDS: INSULIN GLARGINE, 100 UNIT/ML CARTRIDGE SQ SCH (22:00)
[2019-08-08] MEDS ORDERED: INSULIN GLARGINE, 100 UNIT/ML CARTRIDGE SQ SCH (22:00)
--- NOTE | 2019-08-08 22:36 | NUR ---
MS/RN NOTES CLARIFIED WITH EPIC WOOD CARVER VACUUM APPLICATOR OPERATOR SANDRA PT. NEW ORDER FOR LANTUS 34 UNITS HS SCHEDULED FOR TONIGHT. PER VACUUM APPLICATOR OPERATOR SANDRA DO NOT ADMINISTER NEW DOSE OF LANTUS TONIGHT, LET IT BEGIN TOMORROW. WILL CARRY OUT ORDER.
[2019-08-08] MEDS: VANCOMYCIN 0.75 GM in IV D5W 250 ML IV SCH (23:34)
[2019-08-09] MEDS: MEROPENEM 1 G in IV NS 0.9% 100 ML IV SCH ×2 (05:15→16:39)
[2019-08-09 06:32] LABS: CALCIUM, SERUM 8.6 mg/dL (8.5-10.1); CREATININE 1.1 mg/dL (0.6-1.3); MAGNESIUM 2.2 mg/dL (1.8-2.4); PHOSPHORUS 2.1 mg/dL (2.5-4.9)
[2019-08-09 06:42] LABS: BASOPHILS % (AUTO) 0.4 % (0.0-2.0); EOSINOPHILS % (AUTO) 0.6 % (0.0-6.0); HEMATOCRIT 28 % (33-45); HEMOGLOBIN 9.4 g/dL (11.5-14.8); LYMPHOCYTES # (AUTO) 1.6 /CMM (0.8-4.8); LYMPHOCYTES % (AUTO) 20.6 % (20.0-44.0); MEAN CORPUSCULAR HGB CONC 34 g/dl (31.0-36.0); MEAN CORPUSCULAR VOLUME 83 fL (82-100); MONOCYTES # (AUTO) 0.8 /CMM (0.1-1.30); MONOCYTES % (AUTO) 10.2 % (2.0-12.0); NEUTROPHILS # (AUTO) 5.3 /CMM (1.8-8.9); NEUTROPHILS % (AUTO) 68.2 % (43.0-81.0); PLATELET COUNT (AUTO) 246 /CMM (150-450); RED BLOOD CELL COUNT(AUTO) 3.33 MIL/uL (4.0-5.2); WHITE BLOOD COUNT (AUTO) 7.8 K/uL (4.3-11.0)
[2019-08-09] MEDS: BLOOD SUGAR DIAGNOSTIC 1 EACH STRIP IN SCH ×4 (06:43→22:03)
[2019-08-09] MEDS: INSULIN REGULAR, HUMAN 100 UNIT/ML 3 ML VIAL SQ PRN ×3 (06:49→17:30)
--- NOTE | 2019-08-09 06:50 | NUR ---
MS/RN NOTES PT. IS LYING IN BED RESTING. BREATHING EVEN AND UNLABORED ON ROOM AIR. NO SOB, RESPIRATORY DISTRESS OR COMPLAINTS OF PAIN NOTED AT THIS TIME. PT. WITH RIGHT HAND 20 GAUGE PERIPHERAL IV PRESENT, PATENT AND INTACT ADMINISTERING TO PT. 1/2 NS @ 75 ML/HR. NO S/S OF HYPO/HYPERGLYCEMIA NOTED AT THIS TIME. ALL PT. NEEDS MET. BED LOCKED AND IN LOWEST POSITION, SIDE RAILS UP X3, BED ALARM ON, CALL LIGHT WITHIN REACH, WILL ENDORSE TO DAYSHIFT NURSE FOR CONTINUITY OF CARE.
[2019-08-09] MEDS: INSULIN GLARGINE, 100 UNIT/ML CARTRIDGE SQ SCH ×2 (06:57→22:07)
[2019-08-09 07:57] VITALS: BP 106/55
[2019-08-09 08:00] VITALS: BP 106/55
[2019-08-09] MEDS: LACTOBACILLUS RHAMNOSUS GG 1 EACH CAP.SPRINK PO SCH ×2 (09:07→16:41)
[2019-08-09] MEDS: Z GUARD REMEDY 2 OZ OINT TP PRN ×3 (09:09→20:36)
[2019-08-09] MEDS: THERAHONEY GEL 1.5 OZ TUBE TP SCH (09:09)
[2019-08-09] MEDS: NYSTATIN TOP POWDER 15 GM BOTTLE TP SCH ×2 (09:10→16:43)
[2019-08-09] MEDS: SILVER SULFADIAZINE 50 GM JAR TP SCH (09:10)
[2019-08-09] MEDS: Z GUARD REMEDY 2 OZ OINT TP SCH ×2 (09:14→20:36)
[2019-08-09] MEDS: RIVAROXABAN 15 MG TABLET PO SCH ×2 (09:14→16:41)
--- NOTE | 2019-08-09 09:30 | NUR ---
Patient refused wound care . Will attempt again. Patient educated
[2019-08-09] MEDS ORDERED: NEUTRA PHOS 1 POWD.PACKET NG ONE (11:00)
[2019-08-09] MEDS: IV NS 0.9% 1,000 ML IV SCH (11:47)
[2019-08-09] MEDS: VANCOMYCIN 0.75 GM in IV D5W 250 ML IV SCH (12:07)
--- NOTE | 2019-08-09 14:20 | NUR ---
Patient agreed with wound care after many attempts ; care provided as directed
[2019-08-09 16:00] VITALS: BP 107/64
--- NOTE | 2019-08-09 18:33 | NUR ---
Patient is resting in bed, A/O x3, no signs of acute distress noted, on RA. IV line to the right hand #22 intact and patent infusing NS 0.9% as ordered. Patient kept clean and dry. Wound care provided as per orders. All patient needs met, all due meds given.Bed is in lowest position, side rails x3 in upright position, call light is within reach. Will endorse to overnight stocker for DAMARIS.
--- NOTE | 2019-08-09 19:45 | NUR ---
MS RN OPENING NOTE RECEIVED PATIENT IN BED. A/O X3. TOLERATING ROOM AIR. RESPIRATIONS ARE EVEN AND UNLABORED. NO S/S SOB NOTED. DENIES PAIN AT THIS TIME. IN NO APPARENT DISTRESS. IV ACCESS IN L HAND #22 PATENT AND RUNNING NS@50ML/HR. BED IS LOW AND LOCKED, HOB ELEVATED 20 DEGREES. SIDE RAILS UP X2, BED ALARM IS ON. CALL LIGHT WITHIN REACH. WILL CONTINUE TO MONITOR.
[2019-08-09 20:00] VITALS: BP 122/62
[2019-08-09 20:13] VITALS: BP 122/62
[2019-08-09] MEDS: *INSULIN REGULAR(HUMULIN R)HUM 100 UNIT/ML VIAL SQ PRN (22:08)
[2019-08-10] MEDS: MEROPENEM 1 G in IV NS 0.9% 100 ML IV SCH ×2 (04:24→16:55)
[2019-08-10] MEDS: BLOOD SUGAR DIAGNOSTIC 1 EACH STRIP IN SCH ×4 (06:29→21:52)
[2019-08-10] MEDS: IV NS 0.9% 1,000 ML IV SCH (06:30)
[2019-08-10] MEDS: INSULIN REGULAR, HUMAN 100 UNIT/ML 3 ML VIAL SQ PRN ×3 (06:33→17:31)
--- NOTE | 2019-08-10 06:54 | NUR ---
MS RN CLOSING NOTE PATIENT IN BED. A/O X3. REMAINS TOLERATING ROOM AIR. RESPIRATIONS ARE EVEN AND UNLABORED. NO EPISODES OF SOB NOTED. NO C/O PAIN. NO DISTRESS NOTED. IV ACCESS MAINTAINED IN L HAND #22 PATENT AND RUNNING NS@50ML/HR. BED IS LOW AND LOCKED, HOB ELEVATED 20 DEGREES. SIDE RAILS UP X2, BED ALARM IS ON. CALL LIGHT WITHIN REACH. WILL ENDORSE TO NEXT SHIFT
--- NOTE | 2019-08-10 07:25 | NUR ---
MS/RN NOTE THE PATIENT IS RECEIVED IN BED. PATIENT IS AWAKE, ALERT AND ORIENTED X3. IN ROOM AIR AND DENIES SOB. RESPIRATION REGULAR AND UNLABORED. DENIES PAIN. THE PATIENT IN NO APPARENT DISTRESS. LEFT HAND G 22 PATENT AND NS INFUSING AT 250ML/HR AND NO S/S INFILTRATION NOTED. BED LOW AND LOCKED. SIDE RAILS UP X3. CALL LIGHT WITHIN REACH. WILL CONTINUE TO MONITOR.
[2019-08-10 08:00] VITALS: BP_SYST 101; BP_SYST 97; BP_DIAS 51; BP_DIAS 54; BP_DIAS 58
[2019-08-10] MEDS: LACTOBACILLUS RHAMNOSUS GG 1 EACH CAP.SPRINK PO SCH ×2 (08:17→16:55)
[2019-08-10] MEDS: RIVAROXABAN 15 MG TABLET PO SCH ×2 (08:18→16:55)
[2019-08-10] MEDS: INSULIN GLARGINE, 100 UNIT/ML CARTRIDGE SQ SCH (08:23)
[2019-08-10] MEDS: NYSTATIN TOP POWDER 15 GM BOTTLE TP SCH ×2 (08:28→17:11)
[2019-08-10] MEDS: THERAHONEY GEL 1.5 OZ TUBE TP SCH (08:28)
[2019-08-10] MEDS: SILVER SULFADIAZINE 50 GM JAR TP SCH (08:29)
[2019-08-10] MEDS: Z GUARD REMEDY 2 OZ OINT TP SCH ×2 (08:29→21:05)
[2019-08-10 09:43] LABS: CALCIUM, SERUM 8.1 mg/dL (8.5-10.1); CREATININE 0.9 mg/dL (0.6-1.3); POTASSIUM 4.5 mmol/L (3.5-5.1)
[2019-08-10 16:00] VITALS: BP 125/72
--- NOTE | 2019-08-10 18:43 | NUR ---
MS/RN NOTE THE PATIENT IS ALERT AND ORIENTED X3. IN ROOM AIR AND SATURATION IS AT 96%. DENIES SOB. RESPIRATION REGULAR AND UNLABORED. DENIES PAIN. LEFT HAND G 22 PATENT AND SALINE LOCKED. BED LOW AND LOCKED. SIDE RAILS UP X 3. CALL LIGHT WITHIN REACH. WILL ENDORSE TO TOXICOLOGIST.
--- NOTE | 2019-08-10 19:15 | NUR ---
MS RN NOTES RECEIVED ON BED SLEEPING,AROUSABLE TO VERBAL STIMULI,BREATHING EASY,NO SOB,SALINE LOCK LEFT FOREARM INTACT AND PATENT,CALL LIGHT IN REACH,NEEDS ANTICIPATED.
[2019-08-10 20:00] VITALS: BP_SYST 137; BP_DIAS 60; BP_DIAS 68
--- NOTE | 2019-08-10 21:52 | NUR ---
MS RN NOTES ACCU-CHECK BLOOD SUGAR CHECK 408,COVERED WITH HUMULIN R 10UNITS PER SLIDING SCALE,ALONG WITH LANTUS 36 UNITS SCHEDULED.WILL CONTINUE TO MONITOR FOR HYPERGLYCEMIA.HOSPITALIST SHRADDHA MADE AWARE,AWAITING TO CALL BACK FOR NEW ORDERS.
[2019-08-10] MEDS ORDERED: INSULIN GLARGINE, 100 UNIT/ML CARTRIDGE SQ SCH (22:00)
[2019-08-10] MEDS: *INSULIN REGULAR(HUMULIN R)HUM 100 UNIT/ML VIAL SQ PRN (22:03)
[2019-08-11] MEDS: MEROPENEM 1 G in IV NS 0.9% 100 ML IV SCH ×2 (04:50→17:02)
--- NOTE | 2019-08-11 05:00 | NUR ---
MS RN NOTES ACCU-CHECK BLOOD SUGAR RECHECK WAS 274,WILL COVER WITH HUMULIN R PER SLIDING SCALE BEFORE BREAKFAST.A/O X3,KEPT WARM
--- NOTE | 2019-08-11 05:30 | NUR ---
MS RN NOTES OFFERED DRESSING CHANGE ON BILATERAL LOWER EXTREMITY BUT REFUSED.
[2019-08-11] MEDS: BLOOD SUGAR DIAGNOSTIC 1 EACH STRIP IN SCH ×4 (06:48→21:34)
--- NOTE | 2019-08-11 06:59 | NUR ---
MS RN NOTES SLEPT WELL AT NIGHT.DRESSING CHANGE DONE ON BOTH LEGS.IN NO ACUTE DISTRESS.WILL ENDORSE TO DAY NURSE FOR DAMARIS.
[2019-08-11] MEDS: INSULIN REGULAR, HUMAN 100 UNIT/ML 3 ML VIAL SQ PRN ×3 (07:14→17:08)
--- NOTE | 2019-08-11 07:25 | NUR ---
MS/RN NOTE THE PATIENT IS RECEIVED IN BED. AWAKE, ALERT AND ORIENTED X3. DENIES PAIN. IN ROOM AIR AND DENIES SOB. RESPIRATION REGULAR AND UNLABORED. LFA G 20 PATENT AND SALINE LOCKED. BED LOW AND LOCKED. SIDE RAILS UP X3. CALL LIGHT WITHIN REACH. WILL CONTINUE TO MONITOR.
[2019-08-11] MEDS ORDERED: INSULIN GLARGINE, 100 UNIT/ML CARTRIDGE SQ SCH ×2 (07:30→22:00)
[2019-08-11 08:00] VITALS: BP 119/70
[2019-08-11] MEDS: LACTOBACILLUS RHAMNOSUS GG 1 EACH CAP.SPRINK PO SCH ×2 (08:11→17:01)
[2019-08-11] MEDS: RIVAROXABAN 15 MG TABLET PO SCH ×2 (08:12→17:02)
[2019-08-11] MEDS: NYSTATIN TOP POWDER 15 GM BOTTLE TP SCH ×2 (08:16→17:11)
[2019-08-11] MEDS: SILVER SULFADIAZINE 50 GM JAR TP SCH (08:16)
[2019-08-11] MEDS: THERAHONEY GEL 1.5 OZ TUBE TP SCH (08:16)
[2019-08-11] MEDS: Z GUARD REMEDY 2 OZ OINT TP SCH ×2 (08:16→20:54)
[2019-08-11 09:38] VITALS: BP 119/70
--- NOTE | 2019-08-11 11:00 | NUR ---
MS/RN NOTE THE PATIENT IS NON-COMPLIANT WITH TURNING AND REPOSITIONING DESPITE EXPLAINING RISKS AND BENEFITS MULTIPLE TIMES. THE PATIENT IN SUPINE POSITION AT ALL TIMES. WILL CONTINUE TO EXPLAIN RISKS AND BENEFITS, WILL CONTINUE TO ENCOURAGE TURNING AND REPOSITIONING.
[2019-08-11 16:00] VITALS: BP 134/69
--- NOTE | 2019-08-11 18:07 | NUR ---
MS/RN NOTE THE PATIENT ALERT AND ORIENTED X3. DENIES PAIN AT THIS TIME. IN ROOM AND DENIES SOB. RESPIRATION REGULAR AND UNLABORED. THE PATIENT IN NO APPARENT DISTRESS. LFA G 20 PATENT AND SALINE LOCKED. PATIENT REMAINS NON-COMPLIANT WITH TURNING AND REPOSITIONING DESPITE EXPLAINING RISKS AND BENEFITS MULTIPLE TIMES. BED LOW AND LOCKED. SIDE RAILS UP X3. CALL LIGHT WITHIN REACH. WILL ENDORSE TO DISPATCHER BUS AND TROLLEY.
--- NOTE | 2019-08-11 19:40 | NUR ---
MS RN NOTES RECEIVED ON BED SLEEPING,AROUSABLE TO VERBAL STIMULI.BREATHING EASY, NO SOB,IVF NS AT TKO IN PROGRESS ON LFA SALINE LOCK,DRESSING ON BOTH LEGS INTACT AND DRY,ELEVATED ON PILLOWS.REPOSITION PER PROTOCOL.CALL LIGHT IN REACH,NEEDS ANTICIPATED.
[2019-08-11 20:00] VITALS: BP 117/58
--- NOTE | 2019-08-11 21:41 | NUR ---
MS RN NOTES ACCU-CHECK BLOOD SUGAR CHECK 340,COVERED WITH HUMULIN R 8 UNITS PER SLIDING SCALE,ALONG WITH LANTUS 38 UNITS SCHEDULED.ASYMPTOMATIC FOR HYPERGLYCEMIA,MONITOR FOR HYPOGLYCEMIA.SNACKS AT BEDSIDE.
[2019-08-11] MEDS: *INSULIN REGULAR(HUMULIN R)HUM 100 UNIT/ML VIAL SQ PRN (21:44)
--- NOTE | 2019-08-11 22:00 | NUR ---
MS RN NOTES REFUSED TO BE REPOSITION THIS TIME,PICTURE AND WOUND CARE.
[2019-08-12] VITALS: BP 107/68
--- NOTE | 2019-08-12 | NUR ---
MS RN NOTES ON SUPINE POSITION,OFFERED TO BE REPOSITION BUT REFUSED.PHOTOGRAPH ON WOUND STILL REFUSED
--- NOTE | 2019-08-12 02:00 | NUR ---
MS RN NOTES REFUSED TO BE REPOSITION.
--- NOTE | 2019-08-12 04:00 | NUR ---
MS RN NOTES PHOTOGRAPH TO WOUND REFUSED WELL REPOSITIONING
[2019-08-12] MEDS: MEROPENEM 1 G in IV NS 0.9% 100 ML IV SCH ×2 (04:39→16:53)
[2019-08-12] MEDS: BLOOD SUGAR DIAGNOSTIC 1 EACH STRIP IN SCH ×4 (05:40→22:26)
--- NOTE | 2019-08-12 05:40 | NUR ---
MS RN NOTES ACCU-CHECK BLOOD SUGAR CHECK 190,WITH SLIDING SCALE COVERAGE OF HUMULIN R 4UNITS.WILL ADMINISTER BY DAY NURSE.
--- NOTE | 2019-08-12 06:43 | NUR ---
MS RN NOTES SLEPT WELL AT NIGHT.NON COMPLIANT WITH CARE AND FOOD INTAKE,REFUSED REPOSITIONING,DRESSING TO BOTH LEGS INTACT AND DRY.IN NO ACUTE DISTRESS.
[2019-08-12] MEDS ORDERED: INSULIN GLARGINE, 100 UNIT/ML CARTRIDGE SQ SCH ×2 (07:30→22:00)
--- NOTE | 2019-08-12 07:47 | NUR ---
RN OPENING NOTES Patient received on room air, no sob noted, a/o x3, and denies pain at this time. HL LFA #20. Bed at the lowest setting, call light within reach, side rails up x2.
[2019-08-12 08:00] VITALS: BP 115/64
[2019-08-12] MEDS: *INSULIN REGULAR(HUMULIN R)HUM 100 UNIT/ML VIAL SQ PRN ×3 (08:15→22:27)
[2019-08-12] MEDS: NYSTATIN TOP POWDER 15 GM BOTTLE TP SCH ×2 (08:16→17:01)
[2019-08-12] MEDS: LACTOBACILLUS RHAMNOSUS GG 1 EACH CAP.SPRINK PO SCH ×2 (08:16→16:59)
[2019-08-12] MEDS: Z GUARD REMEDY 2 OZ OINT TP SCH ×2 (08:17→21:08)
[2019-08-12] MEDS: RIVAROXABAN 15 MG TABLET PO SCH ×2 (08:18→16:59)
[2019-08-12] MEDS: SILVER SULFADIAZINE 50 GM JAR TP SCH (08:19)
[2019-08-12] MEDS: THERAHONEY GEL 1.5 OZ TUBE TP SCH (08:19)
[2019-08-12] MEDS: ACETAMINOPHEN 325 MG TABLET PO PRN (10:17)
[2019-08-12] MEDS: INSULIN REGULAR, HUMAN 100 UNIT/ML 3 ML VIAL SQ PRN (12:26)
[2019-08-12 16:00] VITALS: BP 120/63
--- NOTE | 2019-08-12 18:48 | NUR ---
RN CLOSING NOTES Patient remains on room air, no sob noted, patient remains a/o x3. SL LFA #20 remains patent at this time. Patient refused wound care at this time x3. Asked her on 3 different occasion but refused. Patient has a JUAN double lumen midline placed today for her ABX when she goes home. Patient to go home tomorrow to her sons house. Bed at the lowest setting, call light within reach, side rails up x2. Will give report to NOC RN for DAMARIS bedside.
--- NOTE | 2019-08-12 19:40 | NUR ---
RN NOTES RECEIVED PATIENT AWAKE, NO SIGNS OF ACUTE RESPIRATORY DISTRESS NOTED, IV ACCESS ON HER LEFT FA G#20 AND A MIDLINE ON HER RIGHT UPPER ARM, SAFETY MEASURES IN PLACE. ASPIRATION PRECAUTION EMPHASIZED,BILARETAL WOUND DRESSING INTACT AND CLEAN, REFUSED TO BE TOUCH AND REQUESTING NOT TO TOUCH THE DRESSING ON HER BILATERAL LOWER EXTREMITIES. CALL LIGHT WITHIN EASY REACH, BED IN LOW LOCKED POSITION. ALL NEEDS ATTENDED, WILL MONITOR ACCORDINGLY.
[2019-08-12 20:33] VITALS: BP 108/58
[2019-08-12] MEDS: Z GUARD REMEDY 2 OZ OINT TP PRN (21:07)
[2019-08-13] MEDS: MEROPENEM 1 G in IV NS 0.9% 100 ML IV SCH (04:16)
[2019-08-13] MEDS: BLOOD SUGAR DIAGNOSTIC 1 EACH STRIP IN SCH ×2 (06:51→12:01)
[2019-08-13] MEDS: INSULIN REGULAR, HUMAN 100 UNIT/ML 3 ML VIAL SQ PRN ×2 (06:52→12:01)
[2019-08-13] MEDS ORDERED: INSULIN GLARGINE, 100 UNIT/ML CARTRIDGE SQ SCH (07:30)
--- NOTE | 2019-08-13 07:30 | NUR ---
RN NOTES ALL NEEDS ATTENDED AND MET ABLE TO REST AND SLEPT AT INTERVALS, KEPT RESTED,ENDORSED TO AM NURSE FOR POSSIBLE DISCHARGE TODAY.SAFETY MEASURES IN PLACED,CALL LIGHT WITHIN EASY REACH.
--- NOTE | 2019-08-13 07:45 | NUR ---
MS RN OPENING NOTES PATIENT RECEIVED IN BED, AWAKE, A/O X 3, ABLE TO VERBALIZE NEEDS. DENIES PAIN OR ANY DISCOMFORT AT THIS TIME. PATIENT ON ROOM AIR BREATHING EVENLY WITH NO SIGNS OF DISTRESS OR SOB NOTED. IV LOCK ON L FA GAUGE # 20, AND MIDLINE ON JUAN BOTH INTACT AND PATENT. SAFETY MEASURES IN PLACE: BED IN LOW POSITION, LOCKED WITH SIDE RAILS UP X 2, CALL LIGHT WITHIN REACH. WILL CONTINUE TO MONITOR.
[2019-08-13 08:00] VITALS: BP 129/77
[2019-08-13] MEDS: LACTOBACILLUS RHAMNOSUS GG 1 EACH CAP.SPRINK PO SCH (08:48)
[2019-08-13] MEDS: RIVAROXABAN 15 MG TABLET PO SCH (08:50)
[2019-08-13] MEDS: Z GUARD REMEDY 2 OZ OINT TP PRN (08:51)
[2019-08-13] MEDS: THERAHONEY GEL 1.5 OZ TUBE TP SCH (08:51)
[2019-08-13] MEDS: Z GUARD REMEDY 2 OZ OINT TP SCH (08:53)
[2019-08-13] MEDS: SILVER SULFADIAZINE 50 GM JAR TP SCH (08:54)
[2019-08-13] MEDS: NYSTATIN TOP POWDER 15 GM BOTTLE TP SCH (08:54)
[2019-08-13 16:00] VITALS: BP 125/78
--- NOTE | 2019-08-13 16:42 | NUR ---
RN DISCHARGED NOTES PT DISCHARGED HOME WITH HOME HEALTH IN STABLE CONDITION. A/O X4. ABLE TO MAKE NEEDS KNOWN, NO C/O PAIN VOICED DURING DISCHARGE. V/S TAKEN, STABLE AND RECORDED. DRESSINGS ON BLE C/D/I. ALL BELONGINGS CHECKED, COUNTED AND SIGNED FORM. PIV'S REMOVED WITH MINIMAL BLEEDING NOTED, DRY DRESSING APPLIED. MIDLINE ON JUAN KEPT IN PLACE BECAUSE PT WILL CONTINUE WITH IV ATB FOR 2 MORE WEEKS. NAME ARMBAND REMOVED. HEALTH TEACHINGS GIVEN TO PT AND VERBALIZED UNDERSTANDING. PRESCRIPTION EXPLAINED AND GIVEN TO PT. HOME MEDS STORED FROM PHARMACY COLLECTED AND HANDED TO PT. PT LEFT UNIT VIA [facility] @ [id number] ACCOMPANIED BY 2 GIRL FRIDAY FROM [facility]. CHARGE NURSE AWARE OF DISCHARGE.
== END 2019-08-13 17:00 | disposition home health service (06) | DRG 682 ==
LOC: ER 08:48 → TELE 10:40 → MED 08-07 08:24
PROVIDERS: ADMIT Internal Medicine; ATTEND Internal Medicine
DX: N17.0 Acute kidney failure with tubular necrosis (principal); G93.41 Metabolic encephalopathy; E87.1 Hypo-osmolality and hyponatremia; E87.2 Acidosis; I87.313 Chronic venous hypertension (idiopathic) with ulcer of bilateral lower extremity; L97.829 Non-pressure chronic ulcer of other part of left lower leg with unspecified severity; L97.819 Non-pressure chronic ulcer of other part of right lower leg with unspecified severity; L03.115 Cellulitis of right lower limb; L03.116 Cellulitis of left lower limb; I13.0 Hypertensive heart and chronic kidney disease with heart failure and stage 1 through stage 4 chronic kidney disease, or unspecified chronic kidney disease; I50.32 Chronic diastolic (congestive) heart failure; E44.0 Moderate protein-calorie malnutrition; Z68.41 Body mass index [BMI] 40.0-44.9, adult; Z16.12 Extended spectrum beta lactamase (ESBL) resistance; E86.0 Dehydration; E87.5 Hyperkalemia; I87.8 Other specified disorders of veins; E11.65 Type 2 diabetes mellitus with hyperglycemia; E11.42 Type 2 diabetes mellitus with diabetic polyneuropathy; E11.51 Type 2 diabetes mellitus with diabetic peripheral angiopathy without gangrene; E11.621 Type 2 diabetes mellitus with foot ulcer; L97.529 Non-pressure chronic ulcer of other part of left foot with unspecified severity; L97.519 Non-pressure chronic ulcer of other part of right foot with unspecified severity; D64.9 Anemia, unspecified; Z88.0 Allergy status to penicillin; N18.9 Chronic kidney disease, unspecified; E11.22 Type 2 diabetes mellitus with diabetic chronic kidney disease; E11.40 Type 2 diabetes mellitus with diabetic neuropathy, unspecified; K21.9 Gastro-esophageal reflux disease without esophagitis; I48.91 Unspecified atrial fibrillation; Z79.01 Long term (current) use of anticoagulants; I25.2 Old myocardial infarction; E88.09 Other disorders of plasma-protein metabolism, not elsewhere classified; E66.01 Morbid (severe) obesity due to excess calories; L98.8 Other specified disorders of the skin and subcutaneous tissue; L30.4 Erythema intertrigo; Z86.718 Personal history of other venous thrombosis and embolism; Z91.19 Patient's noncompliance with other medical treatment and regimen; W18.30XA Fall on same level, unspecified, initial encounter; Y92.89 Other specified places as the place of occurrence of the external cause; B96.1 Klebsiella pneumoniae [K. pneumoniae] as the cause of diseases classified elsewhere
CPT/HCPCS: 36415; 71045-TC; 80048-TC; 80053-TC; 80061-TC; 80076-TC; 80202-TC; 82962-TC; 83605-TC; 83735-TC; 83880; 84100-TC; 84443-TC; 84484-TC; 85025-TC; 85730-TC; 87040-TC; 87070-TC; 87081-TC; 87186-TC; 93970-TC; A6253; A6403; G0378; J1815; J2185; J3370; J3490; J7030; J7040; J7060

== ENCOUNTER 2019-09-05 20:36 | Inpatient (IN) | payer MEDICARE ==
[~2019-09-05] VITALS: Ht 165.1 cm; Wt 122.9 kg
[~2019-09-05 20:36] MED LIST changes: -ACET-73 PO; -AMIN30LI2 PO; -ASCO500T87 PO; -BISA10SU61 RC; -CRAN450C PO; -DOCU-141 PO; +FURO-145 PO; -GLIP10TA3 PO; -HYDR-3974 PO; -INSU100V27 SQ; -INSU100V7 SQ; -MAG30ORA PO; -MAG355OR18 PO; -MAGN400O6 PO; +METF-440 PO; -MULT-213 PO; -NA P133E RC; -PANT40TA2 PO; +RANI150T8 PO; -RIVA10TA PO; -SACC250C PO; -VANC1PLA10 IV
--- NOTE | 2019-09-05 21:33 | NUR ---
PT TO BED 11 ER BIB RA C/O LEFT LEG WOUND S/P FALL. PT PREVIOUS HAD A WOUND ON THE LEFT LEG ON THE PEREZ FROM A PREVIOUS INJURY. PATIENT IS DIABETIC. PT USES A WALKER. PT DENIES HITTING HEAD OR LOSING CONSCIOUSNESS. AAOX4. NO SOB. BREATHING EVENLY AND UNLABORED CONNECTED TO MONITOR.
--- NOTE | 2019-09-05 21:33 | NUR ---
Note rita in EDM - 09/05/19 at 2137 by KATIE PT TO BED 11 ER BIB RA C/O LEFT LEG WOUND S/P FALL. PT DENIES HITTING HEAD OR LOSING CONSCIOUSNESS. AAOX4. NO SOB. BREATHING EVENLY AND UNLABORED CONNECTED TO MONITOR.
--- NOTE | 2019-09-05 22:15 | NUR ---
PATIENT'S SON LEAVING BEDSIDE, LEFT NUMBER FOR FURTHER INFORMATION: [phone], NAME IS CHEMA
--- NOTE | 2019-09-05 22:15 | NUR ---
XRAY AT BEDSIDE
--- NOTE | 2019-09-05 22:28 | NUR ---
FISHING ROD MECHANIC AT BEDSIDE FOR BLOOD DRAW
[2019-09-05 22:35] LABS: BASOPHILS % (AUTO) 0.6 % (0.0-2.0); HEMATOCRIT 28 % (33-45); HEMOGLOBIN 9.2 g/dL (11.5-14.8); LYMPHOCYTES % (AUTO) 11.3 % (20.0-44.0); MEAN CORPUSCULAR HGB CONC 33 g/dl (31.0-36.0); MEAN CORPUSCULAR VOLUME 84 fL (82-100); MONOCYTES # (AUTO) 0.5 /CMM (0.1-1.30); MONOCYTES % (AUTO) 5.5 % (2.0-12.0); NEUTROPHILS # (AUTO) 6.9 /CMM (1.8-8.9); NEUTROPHILS % (AUTO) 81.6 % (43.0-81.0); PLATELET COUNT (AUTO) 246 /CMM (150-450); RED BLOOD CELL COUNT(AUTO) 3.33 MIL/uL (4.0-5.2); WHITE BLOOD COUNT (AUTO) 8.5 K/uL (4.3-11.0)
[2019-09-05 22:55] LABS: B-TYPE NATRIURETIC PEPTIDE 22 PG/ML (0-125); CALCIUM, SERUM 9.6 mg/dL (8.5-10.1); CARBON DIOXIDE 21 mmol/L (21-32); CHLORIDE 109 mmol/L (98-107); CREATININE 1.5 mg/dL (0.6-1.3); GLUCOSE 132 mg/dL (74-106); SODIUM SERUM 136 mmol/L (136-145)
[2019-09-05 22:56] LABS: POTASSIUM 7.4 mmol/L (3.5-5.1); UREA NITROGEN, BLOOD 97 mg/dL (7-18)
[2019-09-05] MEDS ORDERED: ZOLPIDEM TARTRATE 5 MG TABLET PO PRN (23:30)
[2019-09-05] MEDS ORDERED: ONDANSETRON HCL/PF 4 MG/2 ML VIAL IVP PRN (23:30)
[2019-09-05] MEDS ORDERED: HYDROCODONE/APAP 5/325MG 1 EACH TABLET PO PRN (23:30)
[2019-09-05] MEDS ORDERED: IV NS 0.9% 1,000 ML BAG IV ONE (23:30)
[2019-09-05] MEDS ORDERED: Z GUARD REMEDY 2 OZ OINT TP PRN (23:30)
[2019-09-05] MEDS ORDERED: CALCIUM CHLORIDE 1,000 MG/10 ML DISP.SYRIN IV ONE (23:30)
[2019-09-05] MEDS ORDERED: SODIUM BICARBONATE SYR 50 MEQ/50 ML DISP.SYRIN IV ONE (23:30)
[2019-09-05] MEDS ORDERED: FUROSEMIDE 40 MG/4 ML VIAL IV ONE (23:30)
[2019-09-05] MEDS ORDERED: NITROGLYCERIN 0.4 MG/TAB BOTTLE SL PRN (23:30)
[2019-09-05] MEDS ORDERED: ACETAMINOPHEN 325 MG TABLET PO PRN (23:30)
[2019-09-05] MEDS ORDERED: SODIUM POLYSTYRENE SULFONATE 15 G/60 ML BOTTLE PO ONE (23:30)
[2019-09-05] MEDS ORDERED: ENOXAPARIN SODIUM 30 MG/0.3 ML DISP.SYRIN SQ SCH (23:30)
[2019-09-05] MEDS ORDERED: DEXTROSE 50%-WATER 50 ML DISP.SYRIN IV ONE (23:30)
[2019-09-05] MEDS ORDERED: INSULIN REGULAR, HUMAN 100 UNIT/ML 10 ML VIAL IV ONE (23:30)
[2019-09-05] MEDS ORDERED: FUROSEMIDE 20 MG/2 ML VIAL ONE (23:32)
[2019-09-05] MEDS ORDERED: DEXTROSE 50%-WATER 50 ML DISP.SYRIN ONE (23:33)
[2019-09-05] MEDS ORDERED: SODIUM BICARBONATE SYR 50 MEQ/50 ML DISP.SYRIN ONE (23:33)
[2019-09-05] MEDS ORDERED: INSULIN REGULAR, HUMAN 100 UNIT/ML 10 ML VIAL ONE (23:33)
[2019-09-05] MEDS ORDERED: SODIUM POLYSTYRENE SULFONATE 15 G/60 ML BOTTLE ONE (23:33)
[2019-09-05] MEDS ORDERED: CALCIUM CHLORIDE 1,000 MG/10 ML DISP.SYRIN ONE (23:45)
--- NOTE | 2019-09-05 23:48 | NUR ---
PATIENT MEDICATED ORDERED
[2019-09-06] VITALS (7 sets, daily range): BP systolic 87–124; BP diastolic 52–75
--- NOTE | 2019-09-06 00:37 | NUR ---
report given to Tee Herrera. for DAMARIS
--- NOTE | 2019-09-06 01:10 | NUR ---
68 Years old female patient admitted to Tele unit with the DX of Chest pain, renal failure and Hyperkalemia. In no acute distress, breathing even and unlabored on Room Air, saturating 98%. Alert and oriented x4, denies any pain at this time, placed in bed, body assessment done per protocol. safety maintained, bed at the lowest locked position. Call light within reach. On tele monitoring with Sinus rhythm. IV site with no S/S of infection/ Infiltration. Unit orientation provided. Will continue to monitor as per plan of care .
[2019-09-06] MEDS: IV D5/0.45 NACL 1,000 ML IV PRN ×2 (02:19→12:12)
[2019-09-06] MEDS ORDERED: VANCOMYCIN 1 GM in IV D5W 250 ML IV ONE (03:30)
[2019-09-06] MEDS ORDERED: VANCOMYCIN 1 GM VIAL ONE (03:34)
[2019-09-06 06:53] LABS: BASOPHILS % (AUTO) 0.2 % (0.0-2.0); EOSINOPHILS % (AUTO) 0.6 % (0.0-6.0); HEMATOCRIT 27 % (33-45); HEMOGLOBIN 9.1 g/dL (11.5-14.8); LYMPHOCYTES # (AUTO) 1.1 /CMM (0.8-4.8); LYMPHOCYTES % (AUTO) 11.8 % (20.0-44.0); MEAN CORPUSCULAR HGB CONC 33 g/dl (31.0-36.0); MEAN CORPUSCULAR VOLUME 84 fL (82-100); MONOCYTES # (AUTO) 0.7 /CMM (0.1-1.30); MONOCYTES % (AUTO) 6.9 % (2.0-12.0); NEUTROPHILS # (AUTO) 7.8 /CMM (1.8-8.9); NEUTROPHILS % (AUTO) 80.5 % (43.0-81.0); PLATELET COUNT (AUTO) 202 /CMM (150-450); RED BLOOD CELL COUNT(AUTO) 3.23 MIL/uL (4.0-5.2); WHITE BLOOD COUNT (AUTO) 9.7 K/uL (4.3-11.0)
[2019-09-06 07:21] LABS: CALCIUM, SERUM 9.5 mg/dL (8.5-10.1); CARBON DIOXIDE 21 mmol/L (21-32); CHLORIDE 110 mmol/L (98-107); CREATININE 1.3 mg/dL (0.6-1.3); GLUCOSE 227 mg/dL (74-106); MAGNESIUM 2.9 mg/dL (1.8-2.4); PHOSPHORUS 4.3 mg/dL (2.5-4.9); SODIUM SERUM 139 mmol/L (136-145)
[2019-09-06 07:24] LABS: POTASSIUM 6.3 mmol/L (3.5-5.1)
[2019-09-06 07:27] LABS: CHOLESTEROL 177 mg/dL (<200); HDL CHOLESTEROL 72 mg/dL (40-60); LDL 87 mg/dL (0-99); THYROID STIMULATING HORMONE 3.053 uIU/mL (0.358-3.74); TRIGLYCERIDES 66 mg/dL (30-150)
[2019-09-06] MEDS: PANTOPRAZOLE 40 MG TABLET.DR PO SCH (07:45)
[2019-09-06] MEDS ORDERED: FEE PK DOSING 1 MIN EA MC ONE (08:09)
[2019-09-06] MEDS ORDERED: METF-440 PO (08:41)
[2019-09-06] MEDS ORDERED: RIVA10TA PO (08:41)
[2019-09-06] MEDS ORDERED: LOPE-195 PO (08:41)
--- NOTE | 2019-09-06 08:50 | NUR ---
WOUND CARE CONSULT: PT FOLLOWED BY PLASTIC SURGERY AND PODIATRY TEAMS FOR WOUNDS. DEFER TO SURGICAL TEAMS FOR WOUND TREATMENT PLAN. RECOMMENDATIONS MADE FOR SKIN PROTECTION AND DISCUSSED WITH NURSING STAFF. WILL SEE PRN. [facility] BE PLACED. CURRENT SACHA SCORE IS 14.
[2019-09-06] MEDS: ASPIRIN EC 81 MG TABLET.DR PO SCH (08:59)
[2019-09-06] MEDS: MORPHINE SULFATE INJ 2 MG/ML DISP.SYRIN IV PRN (09:00)
[2019-09-06] MEDS ORDERED: LACTULOSE 10 G/15 ML UDC (PYXIS) PO ONE (09:00)
[2019-09-06 10:17] LABS: UREA NITROGEN, BLOOD 87 mg/dL (7-18)
[2019-09-06] MEDS: THERAHONEY GEL 1.5 OZ TUBE TP SCH ×2 (11:00→16:23)
[2019-09-06] MEDS: NYSTATIN TOP POWDER 15 GM BOTTLE TP SCH ×2 (11:00→16:24)
--- NOTE | 2019-09-06 12:07 | NUR ---
RN NOTE 0715: Received patient awake, A/Ox3. With PIV intact, IVF infusing as ordered. With BLE dressings CDI. 0810: Lab called for K 6.3. 0820: Spoke with Jose [facility] ADMINISTRATOR re: K 6.3, obtained order for Lactulose 60mg and he said he will review the chart. 0830: S/E by wound nurse. with new orders carried out. 0900: With c/o 10/10 BLE pain, moaning. Morphine given as ordered. 1120: Endorsed care to Buck SANDHU. With order for wound debridement but patient is lethargic at this time from Morphine, unable to obtain consent for now.
[2019-09-06] MEDS: CEFTRIAXONE 2 G in IV D5W 100 ML IV SCH (16:23)
[2019-09-06] MEDS: SILVER SULFADIAZINE 50 GM JAR TP SCH (16:23)
--- NOTE | 2019-09-06 19:00 | NUR ---
RN CLOSING NOTE PATIENT IS IN BED RESTING WITH HOB ELEVATED. FAMILY/VISITORS ARE AT BEDSIDE AT THIS TIME. BREATHING IS EVEN AND NON LABORED. A&O X3. IN NO APPARENT DISTRESS NOTED. ALL DUE MEDS GIVEN AND TOLERATED WELL. PATIENT IS KEPT CLEAN, DRY, AND COMFORTABLE. SERIAL DEBRIDEMENT OF BILATERAL THIGHS CONSENT SIGNED IN THIS SHIFT. CALL LIGHT IS WITHIN EASY REACH. WILL ENDORSE TO NEXT SHIFT.
--- NOTE | 2019-09-06 19:46 | NUR ---
RN NOTE RECEIVED PT ALERT AND ORIENTED X 3. PT IN BED IN SEMI AYOUB'S POSITION. ON ROOM AIR AND WITHOUT INDICATIONS OF ACUTE DISTRESS, PAIN OR DISCOMFORT. FAMILY AT BEDSIDE. IVF RUNNING AND TOLERATING WELL. CALL LIGHT WITHIN REACH, BED ALARM ON. WILL MONITOR.
[2019-09-06] MEDS: ENOXAPARIN SODIUM 30 MG/0.3 ML DISP.SYRIN SQ SCH (21:40)
[2019-09-07] VITALS: BP 101/55
[2019-09-07] MEDS ORDERED: VANCOMYCIN 1.25 GM in IV D5W 250 ML IV SCH ×2
[2019-09-07 04:00] VITALS: BP 102/63
[2019-09-07] MEDS: IV D5/0.45 NACL 1,000 ML IV PRN ×2 (04:05→15:15)
--- NOTE | 2019-09-07 07:00 | NUR ---
RN MS NOTES OPENING - PATIENT A/O X1 PATIENT IS LETHARGIC. PATIENT IS IN ROOM AIR AND TOLERATING WELL . PATIENT HAS DIAPERS. PATIENT NO SOB, EVEN AND UNLABORED BREATHING BUT SLOW RR. PATIENT HAS R WRIST 20 # WITH D5 1/2 NS @ 100 ML/ HR PATIENT LINE IS PATENT AND INTACT. LINE SHOWS NO SIGNS OF INFILTRATION. PATIENT HAS DRESSING ON BLE CLEAN DRY AND INTACT. BED LOCKED AND LOWEST POSITION CALL LIGHT WITH IN REACH . ALL SAFETY PRECAUTIONS IMPLEMENTED PER HOSPITAL POLICY
--- NOTE | 2019-09-07 07:20 | NUR ---
RN CLOSING NOTE PT IN BED IN AYOUB'S POSITION. ALERT AND ORIENTED X 3. ON ROOM AIR. RESPIRATIONS EVEN AND UNLABORED. NO INDICATIONS OF PAIN OR DISCOMFORT. WITH IVF RUINNING AND TOLERATING WELL. CALL LIGHT WITHIN REACH. ENDORSED TO MORNING SHIFT.
[2019-09-07 07:52] LABS: BASOPHILS % (AUTO) 0.1 % (0.0-2.0); EOSINOPHILS % (AUTO) 0.6 % (0.0-6.0); HEMATOCRIT 26 % (33-45); HEMOGLOBIN 8.8 g/dL (11.5-14.8); LYMPHOCYTES # (AUTO) 0.8 /CMM (0.8-4.8); LYMPHOCYTES % (AUTO) 8.6 % (20.0-44.0); MEAN CORPUSCULAR HGB CONC 34 g/dl (31.0-36.0); MEAN CORPUSCULAR VOLUME 84 fL (82-100); MONOCYTES # (AUTO) 0.3 /CMM (0.1-1.30); MONOCYTES % (AUTO) 3.7 % (2.0-12.0); NEUTROPHILS # (AUTO) 8.1 /CMM (1.8-8.9); PLATELET COUNT (AUTO) 168 /CMM (150-450); RED BLOOD CELL COUNT(AUTO) 3.12 MIL/uL (4.0-5.2); WHITE BLOOD COUNT (AUTO) 9.3 K/uL (4.3-11.0)
[2019-09-07 08:00] VITALS: BP_SYST 94; BP_SYST 98; BP_DIAS 58
[2019-09-07 08:02] LABS: ALBUMIN 1.6 g/dL (3.4-5.0); BILIRUBIN,TOTAL 0.1 mg/dL (0.2-1.0); CALCIUM, SERUM 8.7 mg/dL (8.5-10.1); CREATININE 1.1 mg/dL (0.6-1.3); MAGNESIUM 2.6 mg/dL (1.8-2.4); PHOSPHORUS 3.6 mg/dL (2.5-4.9); POTASSIUM 5.2 mmol/L (3.5-5.1); TOTAL PROTEIN, SERUM 6.5 g/dL (6.4-8.2)
[2019-09-07] MEDS: NYSTATIN TOP POWDER 15 GM BOTTLE TP SCH ×2 (09:51→16:13)
[2019-09-07] MEDS: ASPIRIN EC 81 MG TABLET.DR PO SCH (09:51)
[2019-09-07] MEDS: PANTOPRAZOLE 40 MG TABLET.DR PO SCH (09:51)
[2019-09-07] MEDS: SILVER SULFADIAZINE 50 GM JAR TP SCH (09:52)
[2019-09-07] MEDS: THERAHONEY GEL 1.5 OZ TUBE TP SCH ×2 (09:53)
[2019-09-07 12:00] VITALS: BP 93/51
[2019-09-07] MEDS: CEFTRIAXONE 2 G in IV D5W 100 ML IV SCH (15:15)
[2019-09-07 16:00] VITALS: BP 93/51
--- NOTE | 2019-09-07 18:43 | NUR ---
RN MS NOTES CLOSING PATIENT IS A/O X2 PATIENT KNOWS NAME AND PLACE PATIENT SEEM TO BE MORE AWAKE DURING THE DAY. PATIENT SHOWS NO SIGNS OF ACUTE RESPIRATORY DISTRESS, EVEN AND UNLABORED BREATHING. PATIENT IS SATURATING WELL. FAMILY AT BEDSIDE .BED LOCK AND LOWEST POSITION CALL LIGHT WITH IN REACH .PATIENT REPOSITION Q2H PER HOSPITAL POLICY ALL SAFETY MEASURE IMPLEMENTED PER HOSPITAL POLICY. ALL METS MET WILL ENDORSE TO PM SHIFT
--- NOTE | 2019-09-07 19:15 | NUR ---
CHANGE OF SHIFT REPORT Patient in bed, awake. Tolerating on RA. BLE wound dressing clean and dry, elevated both leg with pillows, denies pain. Fall/skin precaution maintained.
[2019-09-07] MEDS: ENOXAPARIN SODIUM 30 MG/0.3 ML DISP.SYRIN SQ SCH (21:30)
[2019-09-08] MEDS ORDERED: VANCOMYCIN 1.5 GM in IV D5W 500 ML IV SCH ×2
[2019-09-08 04:38] VITALS: BP 98/46
--- NOTE | 2019-09-08 06:19 | NUR ---
END OF SHIFT REPORT Patient in bed, tolerating on RA. BLE wound, dressing clean and dry, denies pain. Remains on IVF, IV antibiotic as scheduled, Afebrile. Urine collected and send to lab for test. Skin/ Fall precaution maintained.
--- NOTE | 2019-09-08 07:00 | NUR ---
RN MS1 NOTES OPENING PATIENT IS AWAKE AND RESTING COMFORTABLY IN BED. PATIENT IS A/O X4 PATIENT . PATIENT IS IN RA. AND TOLERATING WELL . PATIENT SHOWS NO SOB, NO ACUTE RESPIRATORY DISTRESS. PATIENT IS ON BED REST. PATIENT HAS BILATERAL LOWER EXTREM BOTH ANTERIOR AND POSTERIOR. PATIENT HAS R HAND IV , INTACT AND PATENT. BED LOCKED AND LOWEST POSITION CALL LIGHT WITH IN REACH. ALL SAFETY PRECAUTIONS IMPLEMENTED PER HOSPITAL POLICY
[2019-09-08 08:00] VITALS: BP 102/57
[2019-09-08 09:06] LABS: BASOPHILS % (AUTO) 0.4 % (0.0-2.0); EOSINOPHILS % (AUTO) 0.9 % (0.0-6.0); HEMATOCRIT 27 % (33-45); HEMOGLOBIN 9.1 g/dL (11.5-14.8); LYMPHOCYTES # (AUTO) 0.8 /CMM (0.8-4.8); LYMPHOCYTES % (AUTO) 13.9 % (20.0-44.0); MEAN CORPUSCULAR HGB CONC 34 g/dl (31.0-36.0); MEAN CORPUSCULAR VOLUME 84 fL (82-100); MONOCYTES # (AUTO) 0.4 /CMM (0.1-1.30); MONOCYTES % (AUTO) 6.3 % (2.0-12.0); NEUTROPHILS # (AUTO) 4.8 /CMM (1.8-8.9); NEUTROPHILS % (AUTO) 78.5 % (43.0-81.0); PLATELET COUNT (AUTO) 145 /CMM (150-450); RED BLOOD CELL COUNT(AUTO) 3.25 MIL/uL (4.0-5.2); WHITE BLOOD COUNT (AUTO) 6.1 K/uL (4.3-11.0)
[2019-09-08 09:18] LABS: CALCIUM, SERUM 8.6 mg/dL (8.5-10.1); CREATININE 1.3 mg/dL (0.6-1.3); MAGNESIUM 2.5 mg/dL (1.8-2.4); PHOSPHORUS 3.1 mg/dL (2.5-4.9); POTASSIUM 5.3 mmol/L (3.5-5.1)
[2019-09-08] MEDS: PANTOPRAZOLE 40 MG TABLET.DR PO SCH (09:45)
[2019-09-08] MEDS: ASPIRIN EC 81 MG TABLET.DR PO SCH (09:45)
[2019-09-08] MEDS: SILVER SULFADIAZINE 50 GM JAR TP SCH (09:45)
[2019-09-08] MEDS: NYSTATIN TOP POWDER 15 GM BOTTLE TP SCH ×2 (09:45→17:02)
[2019-09-08] MEDS: THERAHONEY GEL 1.5 OZ TUBE TP SCH ×2 (09:46)
[2019-09-08] MEDS ORDERED: SODIUM POLYSTYRENE SULFONATE 15 G/60 ML BOTTLE PO ONE (11:30)
[2019-09-08 12:00] VITALS: BP 106/61
[2019-09-08] MEDS ORDERED: DEXTROSE 50%-WATER 50 ML DISP.SYRIN IV PRN (13:00)
[2019-09-08] MEDS: CEFTRIAXONE 2 G in IV D5W 100 ML IV SCH (14:56)
[2019-09-08 15:27] LABS: APPEARANCE,URINE CLEAR (CLEAR); BILIRUBIN,URINE NEGATIVE (NEGATIVE); BLOOD, URINE NEGATIVE Ery/uL (NEGATIVE); COLOR,URINE YELLOW (YELLOW); KETONES,URINE NEGATIVE (NEGATIVE); LEUKOCYTE ESTERASE ,URINE NEGATIVE (NEGATIVE); NITRITE, URINE NEGATIVE (NEGATIVE); PH,URINE 5.5 (5.0-8.0); PROTEIN,URINE NEGATIVE (NEGATIVE); UGLUCOSE 250 MG/DL mg/dL (NEGATIVE); UROBILINOGEN,URINE 0.2 EU/dL (0.2)
[2019-09-08 15:43] LABS: CREATININE, URINE 31.5 MG/DL (30.0-125.0)
[2019-09-08 15:56] LABS: EOSINOPHIL,URINE None Seen
[2019-09-08 16:00] VITALS: BP 91/45
[2019-09-08] MEDS: METFORMIN 500 MG TABLET PO SCH (17:04)
[2019-09-08] MEDS: BLOOD SUGAR DIAGNOSTIC 1 EACH STRIP IN SCH ×2 (17:04→22:00)
[2019-09-08] MEDS: INSULIN REGULAR, HUMAN 100 UNIT/ML 3 ML VIAL SQ PRN ×2 (17:16→23:01)
[2019-09-08 20:00] VITALS: BP 93/47
[2019-09-08] MEDS: ENOXAPARIN SODIUM 30 MG/0.3 ML DISP.SYRIN SQ SCH (22:40)
[2019-09-08] MEDS: MORPHINE SULFATE INJ 2 MG/ML DISP.SYRIN IV PRN (22:41)
[2019-09-09] MEDS: VANCOMYCIN 1.25 GM in IV D5W 250 ML IV SCH ×2
[2019-09-09 04:00] VITALS: BP 103/55
--- NOTE | 2019-09-09 07:00 | NUR ---
RN MS1 NOTES OPENING PATIENT IS AWAKE AND RESTING COMFORTABLY IN BED. PATIENT IS A/O X4 PATIENT . PATIENT IS IN RA. AND TOLERATING WELL . PATIENT SHOWS NO SOB, NO ACUTE RESPIRATORY DISTRESS. PATIENT IS ON BED REST. PATIENT HAS BILATERAL LOWER EXTREMITIES BOTH ANTERIOR AND POSTERIOR. PATIENT HAS R HAND IV , INTACT AND PATENT. BED LOCKED AND LOWEST POSITION CALL LIGHT WITH IN REACH. ALL SAFETY PRECAUTIONS IMPLEMENTED PER HOSPITAL POLICY
[2019-09-09 07:16] LABS: BASOPHILS % (AUTO) 0.2 % (0.0-2.0); EOSINOPHILS % (AUTO) 0.9 % (0.0-6.0); HEMATOCRIT 25 % (33-45); HEMOGLOBIN 8.5 g/dL (11.5-14.8); LYMPHOCYTES % (AUTO) 16.4 % (20.0-44.0); MEAN CORPUSCULAR HGB CONC 33 g/dl (31.0-36.0); MEAN CORPUSCULAR VOLUME 83 fL (82-100); MONOCYTES # (AUTO) 0.5 /CMM (0.1-1.30); MONOCYTES % (AUTO) 8.4 % (2.0-12.0); NEUTROPHILS # (AUTO) 4.7 /CMM (1.8-8.9); NEUTROPHILS % (AUTO) 74.1 % (43.0-81.0); PLATELET COUNT (AUTO) 128 /CMM (150-450); RED BLOOD CELL COUNT(AUTO) 3.04 MIL/uL (4.0-5.2); WHITE BLOOD COUNT (AUTO) 6.3 K/uL (4.3-11.0)
[2019-09-09 07:49] LABS: CALCIUM, SERUM 8.8 mg/dL (8.5-10.1); CREATININE 1.2 mg/dL (0.6-1.3); MAGNESIUM 2.4 mg/dL (1.8-2.4); PHOSPHORUS 3.3 mg/dL (2.5-4.9); POTASSIUM 5.1 mmol/L (3.5-5.1)
[2019-09-09 08:00] VITALS: BP 103/61
[2019-09-09] MEDS: METFORMIN 500 MG TABLET PO SCH ×2 (09:39→17:15)
[2019-09-09] MEDS: BLOOD SUGAR DIAGNOSTIC 1 EACH STRIP IN SCH ×4 (09:40→22:57)
[2019-09-09] MEDS: ASPIRIN EC 81 MG TABLET.DR PO SCH (09:40)
[2019-09-09] MEDS: RIVAROXABAN 10 MG TABLET PO SCH (09:40)
[2019-09-09] MEDS: PANTOPRAZOLE 40 MG TABLET.DR PO SCH (09:40)
[2019-09-09] MEDS: INSULIN REGULAR, HUMAN 100 UNIT/ML 3 ML VIAL SQ PRN ×4 (09:42→22:55)
[2019-09-09] MEDS: THERAHONEY GEL 1.5 OZ TUBE TP SCH ×2 (09:46)
[2019-09-09] MEDS: SILVER SULFADIAZINE 50 GM JAR TP SCH (09:46)
[2019-09-09] MEDS: NYSTATIN TOP POWDER 15 GM BOTTLE TP SCH ×2 (09:46→16:42)
[2019-09-09 12:00] VITALS: BP 103/57
[2019-09-09] MEDS: CEFTRIAXONE 2 G in IV D5W 100 ML IV SCH (14:04)
[2019-09-09 16:00] VITALS: BP 103/57
--- NOTE | 2019-09-09 16:55 | NUR ---
PHOBEE MS NOTES - BS 1730 PATIENT BS AT 320 . PATIENT WANTED INSULIN THE LATER REFUSED IT . INSULIN WAS NOT COVERED AT 1730 Addendum: 09/09/19 at 1718 by XANDER OTTO RN PHOEBE MS NOTES - BS 1730 PATIENT BS AT 320 . PATIENT WANTED INSULIN THE LATER REFUSED IT . INSULIN WAS NOT COVERED AT 1730 INFROMED THE PATIENT 3 TIMES ABOUT THE RISKS OF CONDITION. PATIENT REFUSED 3 X TIMES
--- NOTE | 2019-09-09 19:40 | NUR ---
RN MS NOTES CLOSING RECEIVED PATIENT IN BED SLEEPING. A/O X2 . NO SIGNS OF ACUTE RESPIRATORY DISTRESS, EVEN AND UNLABORED BREATHING. PATIENT IS SATURATING WELL. IV ON RH #22 SL, FLUSHING WELL. NO S/S OF INFILTRATION. BED LOCK AND LOWEST POSITION CALL LIGHT WITH IN REACH. WILL CONTINUE TO MONITOR.
[2019-09-09 20:00] VITALS: BP 94/46
[2019-09-09] MEDS: ENOXAPARIN SODIUM 30 MG/0.3 ML DISP.SYRIN SQ SCH (23:00)
[2019-09-10] MEDS: VANCOMYCIN 1.25 GM in IV D5W 250 ML IV SCH (00:12)
[2019-09-10 04:00] VITALS: BP 97/58
--- NOTE | 2019-09-10 06:31 | NUR ---
RN MS CLOSING NOTES, PATIENT IN BED SLEEPING. A/O X2 . NO SIGNS OF ACUTE RESPIRATORY DISTRESS, EVEN AND UNLABORED BREATHING. PATIENT IS SATURATING WELL. IV ON RH #22 SL, FLUSHING WELL. NO S/S OF INFILTRATION. ALL CARE HAS BEEDE PROVIDED DURING PM SHIFT. BED LOCK AND LOWEST POSITION CALL LIGHT WITH IN REACH. WILL ENDORSE THE PATIENT TO AM RN FOR DAMARIS.
[2019-09-10 06:52] VITALS: BP 94/46
[2019-09-10 06:53] VITALS: BP 97/58
[2019-09-10 07:30] VITALS: BP 110/40
[2019-09-10] MEDS: BLOOD SUGAR DIAGNOSTIC 1 EACH STRIP IN SCH ×4 (07:30→21:25)
[2019-09-10 07:43] LABS: BASOPHILS % (AUTO) 0.3 % (0.0-2.0); EOSINOPHILS % (AUTO) 1.2 % (0.0-6.0); HEMATOCRIT 26 % (33-45); HEMOGLOBIN 8.7 g/dL (11.5-14.8); LYMPHOCYTES # (AUTO) 1.3 /CMM (0.8-4.8); LYMPHOCYTES % (AUTO) 19.7 % (20.0-44.0); MEAN CORPUSCULAR HGB CONC 33 g/dl (31.0-36.0); MEAN CORPUSCULAR VOLUME 84 fL (82-100); MONOCYTES # (AUTO) 0.5 /CMM (0.1-1.30); MONOCYTES % (AUTO) 8.3 % (2.0-12.0); NEUTROPHILS # (AUTO) 4.6 /CMM (1.8-8.9); NEUTROPHILS % (AUTO) 70.5 % (43.0-81.0); PLATELET COUNT (AUTO) 127 /CMM (150-450); RED BLOOD CELL COUNT(AUTO) 3.11 MIL/uL (4.0-5.2); WHITE BLOOD COUNT (AUTO) 6.5 K/uL (4.3-11.0)
[2019-09-10 07:55] LABS: CALCIUM, SERUM 8.8 mg/dL (8.5-10.1); CREATININE 1.3 mg/dL (0.6-1.3); MAGNESIUM 2.3 mg/dL (1.8-2.4); PHOSPHORUS 2.6 mg/dL (2.5-4.9)
--- NOTE | 2019-09-10 08:05 | NUR ---
ms rn received on bed, awake,alert,oriented x3,noted to have bilateral lower leg wounds,denies pain at this time, will monitor patient's condition.
[2019-09-10] MEDS: NYSTATIN TOP POWDER 15 GM BOTTLE TP SCH ×2 (09:00→17:01)
[2019-09-10] MEDS ORDERED: SODIUM POLYSTYRENE SULFONATE 15 G/60 ML BOTTLE PO ONE (09:00)
[2019-09-10] MEDS: SILVER SULFADIAZINE 50 GM JAR TP SCH (09:00)
[2019-09-10] MEDS: THERAHONEY GEL 1.5 OZ TUBE TP SCH ×2 (09:00→09:15)
[2019-09-10] MEDS: FLUDROCORTISONE 0.1 MG TABLET PO SCH (09:14)
[2019-09-10] MEDS: ASPIRIN EC 81 MG TABLET.DR PO SCH (09:14)
[2019-09-10] MEDS: METFORMIN 500 MG TABLET PO SCH ×2 (09:15→16:59)
[2019-09-10] MEDS: PANTOPRAZOLE 40 MG TABLET.DR PO SCH (09:19)
--- NOTE | 2019-09-10 09:20 | NUR ---
ms sands breakfast served,due meds given,tolerated well.
[2019-09-10] MEDS: RIVAROXABAN 10 MG TABLET PO SCH (09:24)
--- NOTE | 2019-09-10 10:05 | NUR ---
ms rn son came to see mom, claiming that new cell phone was missing again, came here and took some videos while food trades assistants is looking for cell phone, claiming that food trades assistants just walked inside w/o any permission from him w/c food trades assistants claiming that it is not true, charge nurse is aware. son is harrassing food trades assistants at this time. chintan financial compliance manager of the unit is aware.
--- NOTE | 2019-09-10 11:05 | NUR ---
ms rn was seen by dee castillo/ orders made and carried out.
--- NOTE | 2019-09-10 12:05 | NUR ---
ms sands bs - 395 - 10 units of regular insulin given.
[2019-09-10] MEDS: INSULIN REGULAR, HUMAN 100 UNIT/ML 3 ML VIAL SQ PRN ×3 (13:49→21:29)
[2019-09-10] MEDS: CEFTRIAXONE 2 G in IV D5W 100 ML IV SCH (14:27)
--- NOTE | 2019-09-10 15:00 | NUR ---
ms sands bs critical result received from the lab, bs - above 400, will mccarthy is aware, to be checked again this 5 pm, note patient just ate her lunch when they took bs random.
[2019-09-10 15:09] LABS: CALCIUM, SERUM 8.6 mg/dL (8.5-10.1); CREATININE 1.5 mg/dL (0.6-1.3); POTASSIUM 5.3 mmol/L (3.5-5.1)
--- NOTE | 2019-09-10 16:00 | NUR ---
ms rn the family and relatives are at bedside,all needs attended.
--- NOTE | 2019-09-10 20:00 | NUR ---
MS RN NOTES RECEIVED PATIENT ASLEEP IN BED WITH NO DISTRESS NOTED. CALL LIGHT WITHIN REACH. PERIPHERAL LINE INTACT AND PATENT. BLE DRESSING INTACT, CLEAN AND DRY. BED IN LOW LOCK SETTING. BED ALARM ON AND FUNCTIONING PROPERLY. ROOM FREE OF CLUTTER AND BELONGINGS KEPT NEAR BEDSIDE. WILL CONTINUE TO MONITOR
[2019-09-10] MEDS: ENOXAPARIN SODIUM 30 MG/0.3 ML DISP.SYRIN SQ SCH (21:19)
[2019-09-11] MEDS: INSULIN REGULAR, HUMAN 100 UNIT/ML 3 ML VIAL SQ PRN ×4 (06:05→22:31)
[2019-09-11 06:09] LABS: CALCIUM, SERUM 8.8 mg/dL (8.5-10.1); CREATININE 1.3 mg/dL (0.6-1.3); POTASSIUM 4.9 mmol/L (3.5-5.1)
--- NOTE | 2019-09-11 06:34 | NUR ---
MS RN NOTES PATIENT ASLEEP IN BED WITH NO DISTRESS NOTED. CALL LIGHT WITHIN REACH. WOUND CARE TO BLE RENDERED AND TOLERATED WELL. WOUND CULTURES OBTAINED ORDERED. NO C/O PAIN OR DISCOMFORT. PERIPHERAL LINE INTACT AND PATENT. VANCO DOSE @ 0000 HELD D/T TROUGH LEVEL 24. BED IN LOW LOCK SETTING WITH BED ALARM ON AND FUNCTIONING PROPERLY. ROOM FREE OF CLUTTER AND BELONGINGS KEPT NEAR BEDSIDE. WILL ENDORSE TO ONCOMING SHIFT.
--- NOTE | 2019-09-11 06:54 | NUR ---
ALL BELONGINGS WITH PATIENT. CELL PHONE ON BED WITH PATIENT.
[2019-09-11] MEDS: BLOOD SUGAR DIAGNOSTIC 1 EACH STRIP IN SCH ×4 (06:55→22:13)
--- NOTE | 2019-09-11 07:02 | NUR ---
MS RN OPENING NOTE RECEIVED REPORT FROM NOC SHIFT NURSE. PT ASLEEP IN BED, ON ROOM AIR, SATURATING WELL, RESPIRATIONS EVEN AND UNLABORED, NO SIGNS OF RESPIRATORY DISTRESS NOTED, IV SITE ON RIGHT WRIST G20 INTACT, PATENT, WITH HEP LOCK IN PLACE. BED IN LOW POSITION, LOCKED, CALL LIGHT WITHIN REACH.
[2019-09-11 07:17] LABS: BASOPHILS % (AUTO) 0.3 % (0.0-2.0); EOSINOPHILS % (AUTO) 1.4 % (0.0-6.0); HEMATOCRIT 25 % (33-45); HEMOGLOBIN 8.4 g/dL (11.5-14.8); LYMPHOCYTES # (AUTO) 1.9 /CMM (0.8-4.8); LYMPHOCYTES % (AUTO) 24.5 % (20.0-44.0); MEAN CORPUSCULAR HGB CONC 33 g/dl (31.0-36.0); MEAN CORPUSCULAR VOLUME 85 fL (82-100); MONOCYTES # (AUTO) 0.8 /CMM (0.1-1.30); MONOCYTES % (AUTO) 10.4 % (2.0-12.0); NEUTROPHILS % (AUTO) 63.4 % (43.0-81.0); PLATELET COUNT (AUTO) 122 /CMM (150-450); RED BLOOD CELL COUNT(AUTO) 2.96 MIL/uL (4.0-5.2); WHITE BLOOD COUNT (AUTO) 7.8 K/uL (4.3-11.0)
[2019-09-11] MEDS: PANTOPRAZOLE 40 MG TABLET.DR PO SCH ×2 (07:26→08:18)
[2019-09-11 08:00] VITALS: BP_SYST 116; BP_SYST 129; BP_DIAS 60
[2019-09-11] MEDS: THERAHONEY GEL 1.5 OZ TUBE TP SCH ×2 (08:21→08:23)
[2019-09-11] MEDS: METFORMIN 500 MG TABLET PO SCH ×2 (08:22→17:07)
[2019-09-11] MEDS: ASPIRIN EC 81 MG TABLET.DR PO SCH (08:22)
[2019-09-11] MEDS: RIVAROXABAN 10 MG TABLET PO SCH (08:23)
[2019-09-11] MEDS: FLUDROCORTISONE 0.1 MG TABLET PO SCH (08:23)
[2019-09-11] MEDS: SILVER SULFADIAZINE 50 GM JAR TP SCH (08:25)
[2019-09-11] MEDS: NYSTATIN TOP POWDER 15 GM BOTTLE TP SCH ×2 (08:25→17:00)
--- NOTE | 2019-09-11 10:09 | NUR ---
PT STATED "I WAS CLEANED THIS MORNING. I DON'T WANT YOU TO CLEAN ME OR CHECK TO SEE IF I'M CLEAN."
[2019-09-11] MEDS: VANCOMYCIN 1.25 GM in IV D5W 250 ML IV SCH ×3 (13:17)
[2019-09-11] MEDS: CEFTRIAXONE 2 G in IV D5W 100 ML IV SCH (15:08)
[2019-09-11 16:00] VITALS: BP_SYST 114; BP_SYST 121; BP_DIAS 59
--- NOTE | 2019-09-11 18:36 | NUR ---
MS RN OPENING NOTE PT AWAKE IN BED, ALERT AND ORIENTED X 4, ON ROOM AIR, SATURATING WELL, RESPIRATIONS EVEN AND UNLABORED, NO SIGNS OF RESPIRATORY DISTRESS NOTED. IV SITE ON RIGHT AC G22 INTACT, PATENT, WITH HEP LOCK IN PLACE. PT REFUSED TO BE TURNED AND REPOSITIONED THROUGHOUT THE SHIFT- EXPLAINED THE RISKS OF NOT BEING TURNED AND REPOSITIONED EVERY 2 HOURS. PT REFUSED TO BE CLEANED, REFUSED DIAPER CHANGE, REFUSED BED BATH, ALSO EXPLAINED THE RISKS OF NOT BEING CHANGED. FAMILY (SON) AWARE OF PATIENT'S NON COMPLIANT BEHAVIOR. ALL DUE MEDS GIVEN. BED IN LOW POSITION, LOCKED, CALL LIGHT WITHIN REACH. WILL ENDORSE TO NOC SHIFT NURSE.
[2019-09-11 20:00] VITALS: BP 113/65
[2019-09-12 04:00] VITALS: BP 106/57
[2019-09-12 06:22] LABS: BASOPHILS % (AUTO) 0.3 % (0.0-2.0); EOSINOPHILS % (AUTO) 2.1 % (0.0-6.0); HEMATOCRIT 24 % (33-45); HEMOGLOBIN 7.8 g/dL (11.5-14.8); LYMPHOCYTES # (AUTO) 1.9 /CMM (0.8-4.8); LYMPHOCYTES % (AUTO) 26.3 % (20.0-44.0); MEAN CORPUSCULAR HGB CONC 33 g/dl (31.0-36.0); MEAN CORPUSCULAR VOLUME 84 fL (82-100); MONOCYTES # (AUTO) 0.7 /CMM (0.1-1.30); MONOCYTES % (AUTO) 10.4 % (2.0-12.0); NEUTROPHILS # (AUTO) 4.3 /CMM (1.8-8.9); NEUTROPHILS % (AUTO) 60.9 % (43.0-81.0); PLATELET COUNT (AUTO) 111 /CMM (150-450); RED BLOOD CELL COUNT(AUTO) 2.83 MIL/uL (4.0-5.2); WHITE BLOOD COUNT (AUTO) 7.1 K/uL (4.3-11.0)
--- NOTE | 2019-09-12 07:00 | NUR ---
RN MS NOTES OPENING PATIENT RECIEVED AWAKE IN BED PATIENT IS WATCHING TV. PATIENT IS A/O X4 ON ROOM AIR PATIENT IS SATURATING WELL PATIENT SHOWS NO SIGNS OF ACUTE RESPIRATORY DISTRESS, NO PAIN , NO SOB. PATIENT HAS IV SIDE ON RIGHT AC PATENT AND INTACT. BED LOCKED AND LOWEST POSITION CALL LIGHT WITH IN REACH ALL SAFETY MEASURE IMPLEMENTED PER HOSPITAL POLICY
--- NOTE | 2019-09-12 07:00 | NUR ---
RN MS NOTES OPENING PATIENT RECEIVED AWAKE IN BED PATIENT IS WATCHING TV. PATIENT IS A/O X4 ON ROOM AIR PATIENT IS SATURATING WELL PATIENT SHOWS NO SIGNS OF ACUTE RESPIRATORY DISTRESS, NO PAIN , NO SOB. PATIENT HAS IV SIDE ON RIGHT AC PATENT AND INTACT. PATIENT HAS BILATERAL WOUNDS ON LEGS . PATIENT REPOSITION Q2H PER HOSPITAL POLICY BED LOCKED AND LOWEST POSITION CALL LIGHT WITH IN REACH ALL SAFETY MEASURE IMPLEMENTED PER HOSPITAL POLICY
[2019-09-12 07:03] LABS: CALCIUM, SERUM 8.7 mg/dL (8.5-10.1); CREATININE 1.2 mg/dL (0.6-1.3); POTASSIUM 4.7 mmol/L (3.5-5.1)
[2019-09-12 07:30] VITALS: BP 100/60
[2019-09-12] MEDS: BLOOD SUGAR DIAGNOSTIC 1 EACH STRIP IN SCH ×4 (08:58→21:45)
[2019-09-12] MEDS: METFORMIN 500 MG TABLET PO SCH ×2 (08:59→17:34)
[2019-09-12] MEDS: FLUDROCORTISONE 0.1 MG TABLET PO SCH (08:59)
[2019-09-12] MEDS: ASPIRIN EC 81 MG TABLET.DR PO SCH (08:59)
[2019-09-12] MEDS: PANTOPRAZOLE 40 MG TABLET.DR PO SCH (08:59)
[2019-09-12] MEDS: RIVAROXABAN 10 MG TABLET PO SCH (09:00)
[2019-09-12] MEDS: NYSTATIN TOP POWDER 15 GM BOTTLE TP SCH ×2 (09:01→17:24)
[2019-09-12] MEDS: THERAHONEY GEL 1.5 OZ TUBE TP SCH ×2 (09:02)
[2019-09-12] MEDS: SILVER SULFADIAZINE 50 GM JAR TP SCH (09:02)
[2019-09-12] MEDS: INSULIN REGULAR, HUMAN 100 UNIT/ML 3 ML VIAL SQ PRN ×4 (09:14→21:49)
[2019-09-12 12:00] VITALS: BP 115/58
[2019-09-12] MEDS: CEFTRIAXONE 2 G in IV D5W 100 ML IV SCH (13:03)
--- NOTE | 2019-09-12 19:29 | NUR ---
MS/RN OPENING NOTES: RECEIVED PATIENT AWAKE IN BED, A/O X 4, ON ROOM AIR, SATURATING WELL, RESPIRATIONS EVEN AND UNLABORED, NO SIGNS OF RESPIRATORY DISTRESS NOTED. IV SITE ON RIGHT AC G22 INTACT, PATENT. NO COMPLAINS OF PAIN OR DISCOMFORT AT THIS TIME. SAFETY PRECAUTIONS IN PLACE. BED IN LOW POSITION, LOCKED, CALL LIGHT WITHIN REACH. WILL CONTINUE MONITORING PT ACCORDINGLY.
--- NOTE | 2019-09-12 19:30 | NUR ---
RN MS NOTES CLOSING PATIENT RECEIVED AWAKE IN BED PATIENT IS WATCHING TV. PATIENT IS A/O X4 ON ROOM AIR PATIENT IS SATURATING WELL PATIENT SHOWS NO SIGNS OF ACUTE RESPIRATORY DISTRESS, NO PAIN , NO SOB. PATIENT HAS IV SIDE ON RIGHT AC PATENT AND INTACT. BED LOCKED AND LOWEST POSITION CALL LIGHT WITH IN REACH ALL SAFETY MEASURE IMPLEMENTED PER HOSPITAL POLICY
[2019-09-12 20:00] VITALS: BP 118/60
--- NOTE | 2019-09-12 23:01 | NUR ---
MS/RN NOTES: CLARIFIED WITH PHARMACIST LUIS ABOUT VANCO TROUGH AND VANCO ANTIBIOTIC ORDER AT 0000. PER PHARMACY, VANCOMYCIN 1.25 GM 250 ML, OKAY TO GIVE.
[2019-09-12] MEDS: VANCOMYCIN 1.25 GM in IV D5W 250 ML IV SCH (23:03)
[2019-09-13 04:00] VITALS: BP 104/57
[2019-09-13 06:30] LABS: BASOPHILS % (AUTO) 0.2 % (0.0-2.0); EOSINOPHILS % (AUTO) 3.4 % (0.0-6.0); HEMATOCRIT 24 % (33-45); HEMOGLOBIN 7.9 g/dL (11.5-14.8); LYMPHOCYTES # (AUTO) 1.6 /CMM (0.8-4.8); LYMPHOCYTES % (AUTO) 25.3 % (20.0-44.0); MEAN CORPUSCULAR HGB CONC 33 g/dl (31.0-36.0); MEAN CORPUSCULAR VOLUME 84 fL (82-100); MONOCYTES # (AUTO) 0.7 /CMM (0.1-1.30); MONOCYTES % (AUTO) 10.3 % (2.0-12.0); NEUTROPHILS # (AUTO) 3.9 /CMM (1.8-8.9); NEUTROPHILS % (AUTO) 60.8 % (43.0-81.0); PLATELET COUNT (AUTO) 117 /CMM (150-450); RED BLOOD CELL COUNT(AUTO) 2.85 MIL/uL (4.0-5.2); WHITE BLOOD COUNT (AUTO) 6.4 K/uL (4.3-11.0)
--- NOTE | 2019-09-13 06:58 | NUR ---
MS/RN CLOSING NOTES: PATIENT AWAKE IN BED PATIENT WATCHING TV. PATIENT IS A/O X4 ON ROOM AIR PATIENT IS SATURATING WELL PATIENT SHOWS NO SIGNS OF ACUTE RESPIRATORY DISTRESS, NO PAIN , NO SOB. PATIENT HAS IV SIDE ON RIGHT AC PATENT AND INTACT. BED LOCKED AND LOWEST POSITION CALL LIGHT WITH IN REACH ALL SAFETY MEASURE IMPLEMENTED. WILL ENDORSE TO DAY SHIFT NURSE FOR DAMARIS.
[2019-09-13 07:21] LABS: CALCIUM, SERUM 8.4 mg/dL (8.5-10.1); CREATININE 1.2 mg/dL (0.6-1.3); POTASSIUM 4.3 mmol/L (3.5-5.1)
[2019-09-13] MEDS: BLOOD SUGAR DIAGNOSTIC 1 EACH STRIP IN SCH ×4 (07:30→21:31)
[2019-09-13 08:00] VITALS: BP 118/60
[2019-09-13] MEDS: RIVAROXABAN 15 MG TABLET PO SCH (08:46)
[2019-09-13] MEDS: ASPIRIN EC 81 MG TABLET.DR PO SCH (08:48)
[2019-09-13] MEDS: INSULIN REGULAR, HUMAN 100 UNIT/ML 3 ML VIAL SQ PRN ×4 (08:48→21:32)
[2019-09-13] MEDS: METFORMIN 500 MG TABLET PO SCH ×2 (08:49→17:36)
[2019-09-13] MEDS: FLUDROCORTISONE 0.1 MG TABLET PO SCH (08:49)
[2019-09-13] MEDS: PANTOPRAZOLE 40 MG TABLET.DR PO SCH (08:54)
[2019-09-13] MEDS: NYSTATIN TOP POWDER 15 GM BOTTLE TP SCH ×2 (09:03→16:14)
[2019-09-13 12:00] VITALS: BP 129/66
[2019-09-13] MEDS: THERAHONEY GEL 1.5 OZ TUBE TP SCH ×2 (16:14)
[2019-09-13] MEDS: SILVER SULFADIAZINE 50 GM JAR TP SCH (16:16)
[2019-09-13] MEDS: LINEZOLID RTU BAG 600 MG in PREMIX 1 EA IV SCH (16:58)
--- NOTE | 2019-09-13 19:25 | NUR ---
RN OPEN NOTES RECEIVED PATIENT AWAKE IN BED. A/OX4. NO SIGNS OF DISTRESS OR DISCOMFORT. BREATHING EVEN AND UNLABORED. STATES HAVING 8/10 PAIN IN BLE BUT DOES NOT WANT ANY PAIN MEDICATION AT THIS TIME. IV ACCESS IN RAC WITH ZYVOX INFUSING, PATENT AND INTACT, NO SIGNS OF REDNESS OR INFILTRATION. DRESSING ON BLE C/D/I. BED IN LOW LOCKED POSITION WITH SIDE RAILS X2. CALL LIGHT WITHIN REACH. WILL CONTINUE TO MONITOR.
[2019-09-13 20:00] VITALS: BP 121/48
--- NOTE | 2019-09-13 21:32 | NUR ---
RN NOTES PATIENT REFUSED INSULIN 3U FOR BS OF 167. PATIENT STATES SHE WANTS HER BODY TO REST, "I'VE BEEN HAVING TOO MUCH IN ME". RISK AND BENEFITS EXPLAINED. PATIENT VERBALIZE UNDERSTANDING. WILL CONTINUE TO MONITOR.
[2019-09-14] MEDS: LINEZOLID RTU BAG 600 MG in PREMIX 1 EA IV SCH ×2 (02:28→15:31)
[2019-09-14 04:00] VITALS: BP 133/50
[2019-09-14] MEDS: BLOOD SUGAR DIAGNOSTIC 1 EACH STRIP IN SCH ×4 (06:36→21:48)
[2019-09-14] MEDS: INSULIN REGULAR, HUMAN 100 UNIT/ML 3 ML VIAL SQ PRN ×3 (06:38→17:40)
[2019-09-14 06:48] LABS: BASOPHILS % (AUTO) 0.5 % (0.0-2.0); EOSINOPHILS % (AUTO) 3.1 % (0.0-6.0); HEMATOCRIT 24 % (33-45); HEMOGLOBIN 8.1 g/dL (11.5-14.8); LYMPHOCYTES # (AUTO) 1.5 /CMM (0.8-4.8); LYMPHOCYTES % (AUTO) 25.7 % (20.0-44.0); MEAN CORPUSCULAR HGB CONC 34 g/dl (31.0-36.0); MEAN CORPUSCULAR VOLUME 84 fL (82-100); MONOCYTES # (AUTO) 0.5 /CMM (0.1-1.30); MONOCYTES % (AUTO) 9.2 % (2.0-12.0); NEUTROPHILS # (AUTO) 3.7 /CMM (1.8-8.9); NEUTROPHILS % (AUTO) 61.5 % (43.0-81.0); PLATELET COUNT (AUTO) 128 /CMM (150-450); RED BLOOD CELL COUNT(AUTO) 2.88 MIL/uL (4.0-5.2)
--- NOTE | 2019-09-14 07:17 | NUR ---
RN CLOSING NOTES PATIENT AWAKE IN BED. A/OX4. NO SIGNS OF DISTRESS OR DISCOMFORT. BREATHING EVEN AND UNLABORED. STATES HAVING PAIN IN BLE BUT DOES NOT WANT ANY PAIN MEDICATION AT THIS TIME. IV ACCESS IN RAC WITH ZYVOX INFUSING, PATENT AND INTACT, NO SIGNS OF REDNESS OR INFILTRATION. DRESSING ON BLE C/D/I. ALL NEEDS MET. NO SIGNIFICANT CHANGES THROUGH THE NIGHT. BED IN LOW LOCKED POSITION WITH SIDE RAILS X2. CALL LIGHT WITHIN REACH. ENDORSED TO AM SHIFT FOR DAMARIS.
[2019-09-14 07:29] LABS: CALCIUM, SERUM 8.3 mg/dL (8.5-10.1); CREATININE 1.2 mg/dL (0.6-1.3); POTASSIUM 4.2 mmol/L (3.5-5.1)
--- NOTE | 2019-09-14 07:30 | NUR ---
INITIAL RECEIVED PATIENT AWAKE IN BED. A/OX4. NO SIGNS OF DISTRESS OR DISCOMFORT. BREATHING EVEN AND UNLABORED. STATES HAVING 8/10 PAIN IN BLE BUT DOES NOT WANT ANY PAIN MEDICATION AT THIS TIME. IV ACCESS IN RAC INTACT, NO SIGNS OF REDNESS OR INFILTRATION. DRESSING ON BLE C/D/I. BED IN LOW LOCKED POSITION WITH SIDE RAILS X2. CALL LIGHT WITHIN REACH. WILL CONTINUE TO MONITOR.
[2019-09-14] MEDS: FLUDROCORTISONE 0.1 MG TABLET PO SCH (08:43)
[2019-09-14] MEDS: ASPIRIN EC 81 MG TABLET.DR PO SCH (08:43)
[2019-09-14] MEDS: PANTOPRAZOLE 40 MG TABLET.DR PO SCH (08:43)
[2019-09-14] MEDS: METFORMIN 500 MG TABLET PO SCH ×2 (08:44→17:54)
[2019-09-14] MEDS: RIVAROXABAN 15 MG TABLET PO SCH (08:44)
[2019-09-14] MEDS: NYSTATIN TOP POWDER 15 GM BOTTLE TP SCH ×2 (08:45→17:43)
[2019-09-14] MEDS: THERAHONEY GEL 1.5 OZ TUBE TP SCH ×2 (08:45→08:46)
[2019-09-14] MEDS: SILVER SULFADIAZINE 50 GM JAR TP SCH (08:45)
[2019-09-14 12:00] VITALS: BP 118/68
[2019-09-14] MEDS ORDERED: LINE600T13 PO (14:54)
[2019-09-14] MEDS ORDERED: METF-442 PO (14:54)
--- NOTE | 2019-09-14 15:59 | NUR ---
FAMILY CONCERNS PT DISCHARGED BUT REFUSES TO LEAVING SON AT BEDSIDE TALKED TO CHARGE NURSE REFUSES TO TAKE PT HOME STATES THAT FAMILY CANNOT TAKE CARE OF PT AT HOME.FAMILY HAS HAD HOME HEALTH NURSE AND WOUNDS BECAME WORSE NOW FAMILY REQUESTING DETENTION FACILITY. Michelle SWAIN MADE AWARE
--- NOTE | 2019-09-14 18:12 | NUR ---
CLOSING ATIENT AWAKE IN BED. A/OX4. NO SIGNS OF DISTRESS OR DISCOMFORT. BREATHING EVEN AND UNLABORED. STATES HAVING PAIN IN BLE BUT DOES NOT WANT ANY PAIN MEDICATION AT THIS TIME. IV ACCESS IN RAC WITH ZYVOX INFUSING, PATENT AND INTACT, NO SIGNS OF REDNESS OR INFILTRATION. DRESSING ON BLE C/D/I. ALL NEEDS MET. NO SIGNIFICANT CHANGES THROUGH THE NIGHT. BED IN LOW LOCKED POSITION WITH SIDE RAILS X2. CALL LIGHT WITHIN REACH. ENDORSED TO PM SHIFT FOR DAMARIS
[2019-09-14 20:00] VITALS: BP 138/65
--- NOTE | 2019-09-14 20:00 | NUR ---
MS RN NOTES RECEIVED PATIENT AWAKE IN BED WITH NO DISTRESS NOTED. NO C/O PAIN OR DISCOMFORT. PERIPHERAL LINE INTACT AND PATENT. BLE DRESSINGS CLEAN DRY AND INTACT. CONTACT ISOLATION OBSERVED AND MAINTAINED AT ALL TIMES. ENCOURAGED USE OF CALL LIGHT FOR ASSISTANCE AND VERBALIZED GOOD UNDERSTANDING. BED IN LOW LOCK SETTING WITH BED ALARM ON AND FUNCTIONING PROPERLY. ROOM FREE OF CLUTTER AND BELONGINGS KEPT NEAR BEDSIDE. WILL CONTINUE TO MONITOR.
[2019-09-15] MEDS: LINEZOLID RTU BAG 600 MG in PREMIX 1 EA IV SCH (03:37)
[2019-09-15 04:38] VITALS: BP 111/62
--- NOTE | 2019-09-15 06:27 | NUR ---
MS RN NOTES PATIENT ASLEEP IN BED WITH NO DISTRESS NOTED. CALL LIGHT WITHIN REACH. ALL DUE MEDS GIVEN ORDERED WITH NO ASE NOTED. PERIPHERAL LINE INTACT AND PATENT. PATIENT REFUSED BLE WOUND TX DESPITE CONTINUED ENCOURAGEMENT AND EXPLANATION OF RISK/BENEFITS X3. BLE DRESSINGS REMAIN CLEAN, DRY, AND INTACT. CONTACT ISOLATION OBSERVED AND MAINTAINED AT ALL TIMES. BED IN LOW LOCK SETTING WITH BED ALARM ON AND FUNCTIONING PROPERLY. ROOM FREE OF CLUTTER AND BELONGINGS KEPT NEAR BEDSIDE. WILL ENDORSE TO ONCOMING SHIFT.
[2019-09-15 07:14] LABS: CALCIUM, SERUM 8.5 mg/dL (8.5-10.1); CREATININE 1.2 mg/dL (0.6-1.3); POTASSIUM 4.3 mmol/L (3.5-5.1)
[2019-09-15 08:00] VITALS: BP 123/70
[2019-09-15] MEDS: ASPIRIN EC 81 MG TABLET.DR PO SCH (08:27)
[2019-09-15] MEDS: PANTOPRAZOLE 40 MG TABLET.DR PO SCH (08:28)
[2019-09-15] MEDS: FLUDROCORTISONE 0.1 MG TABLET PO SCH (08:28)
[2019-09-15] MEDS: METFORMIN 500 MG TABLET PO SCH ×2 (08:28→17:11)
[2019-09-15] MEDS: INSULIN REGULAR, HUMAN 100 UNIT/ML 3 ML VIAL SQ PRN ×4 (08:34→21:30)
[2019-09-15] MEDS: RIVAROXABAN 15 MG TABLET PO SCH (08:34)
[2019-09-15] MEDS: NYSTATIN TOP POWDER 15 GM BOTTLE TP SCH ×2 (08:35→17:09)
[2019-09-15] MEDS: BLOOD SUGAR DIAGNOSTIC 1 EACH STRIP IN SCH ×4 (08:35→21:27)
[2019-09-15] MEDS: SILVER SULFADIAZINE 50 GM JAR TP SCH (08:36)
[2019-09-15] MEDS: THERAHONEY GEL 1.5 OZ TUBE TP SCH ×2 (08:36)
--- NOTE | 2019-09-15 12:45 | NUR ---
IT HELP DESK TECHNICIAN KAMALA MADE AWARE OF DISCHARGE ORDER SINCE YESTERDAY.
[2019-09-15 16:00] VITALS: BP_SYST 116; BP_SYST 123; BP_DIAS 70; BP_DIAS 74
[2019-09-15] MEDS: LINEZOLID 600 MG TABLET PO SCH (17:10)
--- NOTE | 2019-09-15 19:10 | NUR ---
RN medsurg opening notes Received Pt from morning nurse. Pt is alert and orientedX4. Pt is resting in bed comfortably. Respiration is normal in room air. No SOB. No S/s of distress noted. IV sites at RAC# 22 is clean, intact, patent and SL. Contact precautions is maintained. HOB elevated. Safety precautions is maintained. Bed at low position, brakes locked, side rails upX3 and call light is within reach. Will continue to monitor.
[2019-09-15] MEDS: GUAIFENESIN/D-METHORPHAN HB 5 ML UDC PO PRN (19:58)
[2019-09-15 20:00] VITALS: BP 128/69
[2019-09-16] MEDS: GUAIFENESIN/D-METHORPHAN HB 5 ML UDC PO PRN (01:55)
[2019-09-16 04:00] VITALS: BP 130/67
[2019-09-16] MEDS: LINEZOLID 600 MG TABLET PO SCH ×2 (05:18→17:35)
--- NOTE | 2019-09-16 06:35 | NUR ---
RN medsurg closing notes Pt is resting in bed comfortably. Respiration is normal in room air with O2 sat is 100%. No SOB. No S/S of distress noted. IV sites RAC# 22 is clean, intact, patent and SL. VS is stable. Routine meds were given as ordered. Wound care provided. Pt tolerated activity well. Contact precautions is maintained. Safety precautions is maintained all the time. Bed at low position, brakes locked, side rails upX3 and call light is within reach. Will endorse to morning nurse for DAMARIS.
--- NOTE | 2019-09-16 07:15 | NUR ---
MS RN OPENING NOTE: RECEIVED PATIENT IN BED, AWAKE A/OX4. ABLE TO MAKE NEEDS KNOWN. ON ROOM AIR, TOLERATING WELL. RESPIRATIONS EQUAL AND UNLABORED. NO SOB, NO RESPIRATORY DISTRESS NOTED. IV SITES CLEAN, DRY, INTACT AND PATENT. NO COMPLAINTS OF PAIN REPORTED. CONTACT PRECAUTIONS IN PLACE, STAFF AWARE AND COMPLIANCE MONITORED. BED LOCKED, LOW AND AT SEMI-AYOUB'S POSITION, CALL LIGHT IN REACH. SIDE RAILS UP. WILL CONTINUE TO MONITOR.
[2019-09-16 07:17] LABS: CALCIUM, SERUM 8.1 mg/dL (8.5-10.1); CREATININE 1.2 mg/dL (0.6-1.3); POTASSIUM 3.5 mmol/L (3.5-5.1)
[2019-09-16 08:00] VITALS: BP 117/62
[2019-09-16] MEDS: PANTOPRAZOLE 40 MG TABLET.DR PO SCH (08:23)
[2019-09-16] MEDS: BLOOD SUGAR DIAGNOSTIC 1 EACH STRIP IN SCH ×4 (08:24→21:30)
[2019-09-16] MEDS: ASPIRIN EC 81 MG TABLET.DR PO SCH (09:17)
[2019-09-16] MEDS: FLUDROCORTISONE 0.1 MG TABLET PO SCH (09:17)
[2019-09-16] MEDS: METFORMIN 500 MG TABLET PO SCH ×2 (09:18→17:36)
[2019-09-16] MEDS: RIVAROXABAN 15 MG TABLET PO SCH (09:35)
--- NOTE | 2019-09-16 11:00 | NUR ---
RN NOTE: INFORMED LOS BANDA ABOUT PATIENT'S REQUEST FOR LOMOTIL DUE TO HER BOWEL MOVEMENT. 1 BM NOTED OF NOW WITH SEMI-FORMED MIXED WITH LIQUID CONSISTENCY NOTED.
[2019-09-16] MEDS: NYSTATIN TOP POWDER 15 GM BOTTLE TP SCH ×2 (11:02→17:37)
[2019-09-16] MEDS: THERAHONEY GEL 1.5 OZ TUBE TP SCH ×2 (11:02→11:03)
[2019-09-16] MEDS: SILVER SULFADIAZINE 50 GM JAR TP SCH (11:02)
[2019-09-16] MEDS: INSULIN REGULAR, HUMAN 100 UNIT/ML 3 ML VIAL SQ PRN ×3 (12:59→21:33)
[2019-09-16] MEDS: LOPERAMIDE HCL (2 MG CAP) 2 MG CAPSULE PO PRN ×2 (15:09→19:04)
[2019-09-16 16:00] VITALS: BP 95/54
[2019-09-16 17:36] VITALS: BP 95/54
--- NOTE | 2019-09-16 19:10 | NUR ---
RN OPENING NOTES: PATIENT IN BED, AWAKE, AND VERBALLY RESPONSIVE. AAOX4. NO RESPIRATORY DISTRESS. NO PAIN. (R) AC G22 INTACT, PATENT, AND FLUSHING WELL. SALINE LOCKED. REMAINS ON CONTACT ISOLATION. STAFF MADE AWARE. SAFETY PRECAUTIONS IMPLEMENTED. BED LOCKED, ALARM ON, AND IN LOWEST POSITION. HOB ELEVATED. CALL LIGHT PLACED WITHIN REACH. WILL CONT. TO MONITOR.
--- NOTE | 2019-09-16 19:15 | NUR ---
MS RN CLOSING NOTE: PATIENT STILL IN BED, AWAKE A/OX4. ABLE TO MAKE NEEDS KNOWN. ON ROOM AIR, TOLERATING WELL. RESPIRATIONS EQUAL AND UNLABORED. NO SOB, NO RESPIRATORY DISTRESS NOTED. IV SITES CLEAN, DRY, INTACT AND PATENT. NO COMPLAINTS OF PAIN REPORTED. CONTACT PRECAUTIONS IN PLACE, STAFF AWARE AND COMPLIANCE MONITORED. PATIENT WITH 3 BOWEL MOVEMENTS ON SHIFT WITH SEMI-FORMED STOOL NOTED. IMODIUM GIVEN PER PATIENT REQUEST. BED LOCKED, LOW AND AT SEMI-AYOUB'S POSITION, CALL LIGHT IN REACH. SIDE RAILS UP. ENDORSED TO [employer] PROFESSOR FOR DAMARIS.
[2019-09-16 20:00] VITALS: BP 112/68
[2019-09-17 04:00] VITALS: BP 123/67
[2019-09-17] MEDS: GUAIFENESIN/D-METHORPHAN HB 5 ML UDC PO PRN (05:42)
[2019-09-17] MEDS: LINEZOLID 600 MG TABLET PO SCH ×2 (05:42→16:14)
[2019-09-17 07:16] LABS: CALCIUM, SERUM 7.9 mg/dL (8.5-10.1); CREATININE 1.2 mg/dL (0.6-1.3); POTASSIUM 3.6 mmol/L (3.5-5.1)
--- NOTE | 2019-09-17 07:30 | NUR ---
RN CLOSING NOTES: PATIENT IN BED, AWAKE, AND VERBALLY RESPONSIVE. AAOX4. NO RESPIRATORY DISTRESS. NO PAIN. (R) AC G22 INTACT, PATENT, AND FLUSHING WELL. SALINE LOCKED. REMAINS ON CONTACT ISOLATION. SAFETY PRECAUTIONS IMPLEMENTED. BED LOCKED, ALARM ON, AND IN LOWEST POSITION. HOB ELEVATED. CALL LIGHT PLACED WITHIN REACH. ENDORSED TO AM SHIFT NURSE FOR CONTINUITY OF CARE.
[2019-09-17 08:00] VITALS: BP 119/55
[2019-09-17] MEDS: RIVAROXABAN 15 MG TABLET PO SCH (09:57)
[2019-09-17] MEDS: METFORMIN 500 MG TABLET PO SCH ×2 (09:58→16:14)
[2019-09-17] MEDS: ASPIRIN EC 81 MG TABLET.DR PO SCH (09:58)
[2019-09-17] MEDS: INSULIN REGULAR, HUMAN 100 UNIT/ML 3 ML VIAL SQ PRN ×4 (09:59→22:37)
[2019-09-17] MEDS: BLOOD SUGAR DIAGNOSTIC 1 EACH STRIP IN SCH ×4 (10:00→22:34)
[2019-09-17] MEDS: PANTOPRAZOLE 40 MG TABLET.DR PO SCH (10:03)
--- NOTE | 2019-09-17 13:25 | NUR ---
per cm raquel still waiting for snf authorization.
[2019-09-17 16:00] VITALS: BP 111/63
[2019-09-17] MEDS: THERAHONEY GEL 1.5 OZ TUBE TP SCH ×2 (16:09→16:11)
[2019-09-17] MEDS: NYSTATIN TOP POWDER 15 GM BOTTLE TP SCH ×2 (16:10→16:29)
[2019-09-17] MEDS: SILVER SULFADIAZINE 50 GM JAR TP SCH (16:11)
--- NOTE | 2019-09-17 17:00 | NUR ---
ff. up with cm still pending snf authorization.
[2019-09-17 18:17] VITALS: BP 111/63
--- NOTE | 2019-09-17 19:15 | NUR ---
RN OPENING NOTES PATIENT RESTING IN BED, AWAKE A/OX4, ABLE TO MAKE NEEDS KNOWN. DENIES ANY PAIN. ON ROOM AIR, TOLERATING WELL, NO SOB OR RESPIRATORY DISTRESS NOTED. IV SITE RIGHT AC 22G, FLUSHING AND PATENT, SITE C/D/I. PATIENT ON DIAPER. CONTACT PRECAUTIONS NOTED IN PLACE. SAFETY MEASURES IN PLACE; BED LOCKED AND IN LOW POSITION, CALL LIGHT IN REACH, SIDE RAILS UP X2, HOB ELEVATED. WILL CONT TO MONITOR PATIENT.
[2019-09-17 20:00] VITALS: BP 110/65
[2019-09-18 04:00] VITALS: BP 132/64
[2019-09-18] MEDS: LINEZOLID 600 MG TABLET PO SCH ×2 (05:18→09:40)
[2019-09-18] MEDS: LOPERAMIDE HCL (2 MG CAP) 2 MG CAPSULE PO PRN ×2 (05:18→09:40)
--- NOTE | 2019-09-18 06:51 | NUR ---
RN CLOSING NOTES PATIENT SLEEPING IN BED, BUT EASY TO AROUSE, A/OX4, ABLE TO MAKE NEEDS KNOWN. IMMODIUM GIVEN BY PATIENT REQUEST D/T LOOSE STOOL. DENIES ANY PAIN. ON ROOM AIR, TOLERATING WELL, NO SOB OR RESPIRATORY DISTRESS NOTED. IV SITE RIGHT AC 22G, FLUSHING AND PATENT, SITE C/D/I. PATIENT ON DIAPER. WOUND TX DONE ORDERED. CONTACT PRECAUTIONS NOTED IN PLACE. SAFETY MEASURES IN PLACE; BED LOCKED AND IN LOW POSITION, CALL LIGHT IN REACH, SIDE RAILS UP X2, HOB ELEVATED. WILL CONT TO MONITOR PATIENT. WILL ENDORSE TO AM NURSE FOR DAMARIS.
[2019-09-18] MEDS: BLOOD SUGAR DIAGNOSTIC 1 EACH STRIP IN SCH ×3 (07:30→17:01)
[2019-09-18 08:00] VITALS: BP 139/78
[2019-09-18] MEDS: RIVAROXABAN 15 MG TABLET PO SCH (09:39)
[2019-09-18] MEDS: METFORMIN 500 MG TABLET PO SCH ×2 (09:40→17:02)
[2019-09-18] MEDS: ASPIRIN EC 81 MG TABLET.DR PO SCH (09:40)
[2019-09-18] MEDS: PANTOPRAZOLE 40 MG TABLET.DR PO SCH (09:40)
[2019-09-18 12:00] VITALS: BP 106/69
[2019-09-18] MEDS: THERAHONEY GEL 1.5 OZ TUBE TP SCH ×2 (12:04→12:05)
[2019-09-18] MEDS: NYSTATIN TOP POWDER 15 GM BOTTLE TP SCH ×2 (12:04→17:01)
[2019-09-18] MEDS: SILVER SULFADIAZINE 50 GM JAR TP SCH (12:04)
[2019-09-18] MEDS: INSULIN REGULAR, HUMAN 100 UNIT/ML 3 ML VIAL SQ PRN ×2 (13:59→17:04)
[2019-09-18 16:00] VITALS: BP 122/59
--- NOTE | 2019-09-18 16:19 | NUR ---
Patient to be discharged to [facility]. Report called to Jarad, Facility nurse. John, polina also notified. Pck up via ambulance scheduled for 2029.
--- NOTE | 2019-09-18 17:02 | NUR ---
primary rn did dressing change in am ,explained to patient need to take discharge photo of wound skin,per patient she doesnot want her wound unwrapped again.will endorse to night rn to retry discharge photo again tonight prior discharge.
--- NOTE | 2019-09-18 19:01 | NUR ---
RN closing notes: Patient stable without changes in condition during this shift. Dressings to bilateral lower extremities changed. No s/s of infection. Tolerated well. Patient to be discharged to [facility]. Report given to Jarad facility nurse at [facility]. Patient son notified of transfer with address and phone number provided. Belongings and transfer pack prepared. Addendum: 09/18/19 at 1921 by BELINDA GARLAND RN RN closing notes: Patient stable without changes in condition during this shift. Dressings to bilateral lower extremities changed. No s/s of infection. Tolerated well. Patient to be discharged to [facility]. Report given to Jarad facility nurse at [facility]. Patient son notified of transfer with address and phone number provided. Belongings and transfer pack prepared. Patient did not want dressings reopened for photo prior to discharge. Informed Belinda charge nurse.
--- NOTE | 2019-09-18 19:53 | NUR ---
ms nicole initial notes received report from am nurse and seen pt in bed awake and alert watching TV no signs of any distress or discomfort noted. Pt aware of her discharge tonight. Still refusing to reinforce the dressing on her wound and refused to take photo as well. kept her warm and comfortable at all times. will continue monitoring. place call light at reach.
--- NOTE | 2019-09-18 21:03 | NUR ---
ms nicole closing notes customer account administrator came to waste picker pt going to SNF. denies any pain or any discomfort. pt signed the dc instruction . vital signs within normal limit. heplock removed. dressing still intact. No signs of any acute distress noted. hand held copy of her chart to customer account administrator and pt aware. belonging checked by am nurse earlier and gave to the pt as well.
== END 2019-09-18 21:05 | DRG 264 ==
LOC: ER 20:36 → TELE1 23:38 → MEDSG1 09-06 10:14
PROVIDERS: ATTEND Student in an Organized Health Care Education/Training Program
PROC: 0JBL0ZZ Excision of Right Upper Leg Subcutaneous Tissue and Fascia, Open Approach (ICD-10-PCS; principal; 2019-09-09)
PROC: 0JBM0ZZ Excision of Left Upper Leg Subcutaneous Tissue and Fascia, Open Approach (ICD-10-PCS; 2019-09-09)
DX: I87.313 Chronic venous hypertension (idiopathic) with ulcer of bilateral lower extremity (principal); N17.0 Acute kidney failure with tubular necrosis; Z68.42 Body mass index [BMI] 45.0-49.9, adult; I50.32 Chronic diastolic (congestive) heart failure; I13.0 Hypertensive heart and chronic kidney disease with heart failure and stage 1 through stage 4 chronic kidney disease, or unspecified chronic kidney disease; L97.129 Non-pressure chronic ulcer of left thigh with unspecified severity; L97.119 Non-pressure chronic ulcer of right thigh with unspecified severity; I87.2 Venous insufficiency (chronic) (peripheral); E11.42 Type 2 diabetes mellitus with diabetic polyneuropathy; Z88.0 Allergy status to penicillin; E87.5 Hyperkalemia; I48.91 Unspecified atrial fibrillation; E66.01 Morbid (severe) obesity due to excess calories; L30.4 Erythema intertrigo; L98.8 Other specified disorders of the skin and subcutaneous tissue; S71.102A Unspecified open wound, left thigh, initial encounter; S71.101A Unspecified open wound, right thigh, initial encounter; X58.XXXA Exposure to other specified factors, initial encounter; Y92.89 Other specified places as the place of occurrence of the external cause; E11.621 Type 2 diabetes mellitus with foot ulcer; L97.529 Non-pressure chronic ulcer of other part of left foot with unspecified severity; L97.519 Non-pressure chronic ulcer of other part of right foot with unspecified severity; R55 Syncope and collapse; W19.XXXA Unspecified fall, initial encounter; E11.22 Type 2 diabetes mellitus with diabetic chronic kidney disease; E11.65 Type 2 diabetes mellitus with hyperglycemia; N18.9 Chronic kidney disease, unspecified; D63.8 Anemia in other chronic diseases classified elsewhere; E11.51 Type 2 diabetes mellitus with diabetic peripheral angiopathy without gangrene; Z86.718 Personal history of other venous thrombosis and embolism; Z79.01 Long term (current) use of anticoagulants; Z86.14 Personal history of Methicillin resistant Staphylococcus aureus infection; B95.2 Enterococcus as the cause of diseases classified elsewhere; E86.0 Dehydration
CPT/HCPCS: 36415; 71045-TC; 73564-TC; 80048-TC; 80053-TC; 80061-TC; 80202-TC; 81000-TC; 82436-TC; 82550-TC; 82570-TC; 82962-TC; 83735-TC; 83880; 83935-TC; 84100-TC; 84133-TC; 84155-TC; 84300-TC; 84443-TC; 84484-TC; 85025-TC; 87040-TC; 87070-TC; 87081-TC; 93307-TC; 93880-TC; 97110-TC; 97112-TC; 97530-TC; A4216; A6253; A6403; G0378; J0696; J1650; J1815; J1940; J2020; J2270; J3370; J3490; J7030; J7050; J7060